=== PATIENT | male | born 1935 | race Caucasian/White ===

== ENCOUNTER 2017-07-05 16:42 | Inpatient (IN) | payer MEDICARE, BC ==
[2017-07-05] MEDS ORDERED: Acetaminophen 325 MG Tab PO ONE (17:42)
--- NOTE | 2017-07-05 17:44 | EDM.PDOC ---
ED HPI GENERAL MEDICAL PROBLEM - General Chief Complaint: General Stated Complaint: MED[facility] Time Seen by Provider: 07/05/17 17:20 Source of Information: Reports: Patient, Family History Limitations: Reports: No Limitations - History of Present Illness INITIAL COMMENTS - FREE TEXT/NARRATIVE: PT ARRIVED WITH A HIGH FEVER AND MORE SOB. hE SPIKED A TEMP TONITE. hE HAS A HISTORY OF FREQUENT FEVERS. -- WITH CHEST INFECTIONS. Onset: Today, Sudden Duration: Hour(s): Location: Reports: Chest Associated Symptoms: Reports: Cough, Fever/Chills, Shortness of Breath - Related Data Allergies Allergy/AdvReac Type Severity Reaction Status Date / Time triamcinolone Allergy Itching Verified 11/04/16 20:06 triamcinolone acetonide Allergy Rash Verified 11/04/16 20:06 [From [facility]] Home Meds: Home Meds Multivitamins/Minerals [Vitamins and Minerals] 1 tab PO DAILY tablet 04/02/15 [ Rx] Furosemide [Lasix] 40 mg PO DAILY 05/30/15 [History] Potassium Chloride [Klor-Con M20] 20 meq PO BID 05/30/15 [History] Cholecalciferol (Vitamin D3) [Vitamin D3] 1,000 units PO DAILY 07/17/15 [History ] Acetaminophen [Tylenol] 650 mg PO BID PRN 07/25/15 [History] Ascorbic Acid [Vitamin C] 500 mg PO DAILY 07/25/15 [History] Aspirin [Ecotrin] 81 mg PO DAILY 07/25/15 [History] [place]-3 Fatty Acids [Fish Oil] 1,000 mg PO DAILY 07/25/15 [History] Vitamin E 400 units PO DAILY 07/25/15 [History] Calcium Polycarbophil [Fibercon] 1 tab PO DAILY 09/15/15 [History] Ranitidine [Zantac] 150 mg PO BID 09/15/15 [History] Warfarin [Coumadin] 15 mg PO ASDIRECTED 10/26/15 [History] Metoprolol Succinate [Toprol XL] 50 mg PO DAILY 03/25/16 [History] carBAMazepine [Epitol] 400 mg PO BEDTIME 04/26/16 [History] Tamsulosin [Flomax] 0.4 mg PO DAILY 07/31/16 [History] carBAMazepine [Epitol] 200 mg PO BID 07/31/16 [History] Citalopram [Citalopram HBr] 20 mg PO DAILY 10/27/16 [History] Fluticasone/Salmeterol [Advair 250-50 Diskus] 2 puff INH DAILY 10/29/16 [History ] Donepezil [Aricept] 5 mg PO BEDTIME 11/04/16 [History] amLODIPine Besylate [Norvasc] 5 mg PO DAILY 11/15/16 [History] Past Medical History HEENT History: Reports: Hard of Hearing, Impaired Vision, Other (See Below) Other HEENT History: bleeding under arm Cardiovascular History: Reports: CAD, High Cholesterol, Hypertension, [place] Other Cardiovascular History: nov blood clot in l leg. Blood clot l arm. mar Still there. 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 Musculoskeletal Surgical History: Reports: Knee Replacement, Other (See Below) Other Musculoskeletal Surgeries/Procedures:: Back surgery, something with discs Social & Family History - Family History Family Medical History: Unobtainable Cardiac: Reports: CAD - Tobacco Use Smoking Status *Q: Former Smoker Years of Tobacco use: 50 Packs/Tins Daily: 1.1 Used Tobacco, but Quit: Yes Month Tobacco Last Used: 3 years Second Hand Smoke Exposure: No - Caffeine Use Caffeine Use: Reports: Coffee - Alcohol Use Days Per Week of Alcohol Use: 1 Number of Drinks Per Day: 1 Total Drinks Per Week: 1 - Recreational Drug Use Recreational Drug Use: No - Living Situation & Occupation Living situation: Reports: Occupation: Retired ED ROS GENERAL - Review of Systems Review Of Systems: See Below Constitutional: Reports: Fever, Chills, Malaise, Decreased Appetite HEENT: Reports: No Symptoms Respiratory: Reports: Shortness of Breath, Cough, Other ( fever. ) Cardiovascular: Reports: No Symptoms Endocrine: Reports: No Symptoms GI/Abdominal: Reports: No Symptoms : Reports: No Symptoms Musculoskeletal: Reports: No Symptoms Skin: Reports: No Symptoms ED EXAM, GENERAL - Physical Exam Exam: See Below Free Text/Narrative:: pt has been slightly more sob the past 2 days. he spiked a temp today and became quite sob. He has a history of recurrent pneumonias. Exam Limited By: No Limitations General Appearance: Alert, Anxious, Mild Distress Ears: Normal TMs Nose: Normal Inspection Throat/Mouth: Normal Inspection Head: Atraumatic Neck: Normal Inspection Respiratory/Chest: Decreased Breath Sounds, Rhonchi, Wheezing Cardiovascular: Regular Rate, Rhythm, Tachycardia GI/Abdominal: Soft, Non-Tender (Male) Exam: Deferred Rectal (Males) Exam: Deferred Back Exam: Normal Inspection Extremities: Normal Inspection Neurological: Alert, Oriented, Normal Cognition Psychiatric: Normal Affect Course - Vital Signs Last Recorded V/S: Last Vital Signs Temp 38.6 C H 07/05/17 17:27 Pulse 87 07/05/17 17:27 Resp 22 H 07/05/17 17:27 BP 157/82 H 07/05/17 17:27 Pulse Ox 98 07/05/17 17:27 - Orders/Labs/Meds Orders: Active Orders 24 hr Category Date Time Status EKG Documentation Completion [RC] ASDIRECTED Care 07/05/17 17:39 Active Chest 1V Frontal [CR] Stat Exams 07/05/17 17:41 Taken CULTURE BLOOD [BC] Urgent Lab 07/05/17 17:45 Received CULTURE BLOOD [BC] Urgent Lab 07/05/17 17:55 Received UA W/MICROSCOPIC [URIN] Urgent Lab 07/05/17 17:39 Uncollected Blood Culture x2 Reflex Set [OM.PC] Urgent Oth 07/05/17 17:40 Ordered EKG 12 Lead [EK] Routine Ther 07/05/17 17:39 Ordered Labs: Laboratory Tests 07/05/17 07/05/17 Range/Units 17:39 17:39 WBC 10.6 (4.5-11.0) K/uL RBC 4.16 L (4.30-5.90) M/uL Hgb 13.2 D (12.0-15.0) g/dL Hct 37.7 L (40.0-54.0) % MCV 91 (80-98) fL MCH 32 H (27-31) pg MCHC 35 (32-36) % Plt Count 177 (150-400) K/uL Neut % (Auto) 91 H (36-66) % Lymph % (Auto) 2 L (24-44) % [place] % (Auto) 4 (2-6) % Eos % (Auto) 2 (2-4) % Baso % (Auto) 0 (0-1) % Sodium 129 L (140-148) mmol/L Potassium 4.6 (3.6-5.2) mmol/L Chloride 94 L (100-108) mmol/L Carbon Dioxide 29 (21-32) mmol/L Anion Gap 10.6 (5.0-14.0) mmol/L BUN 17 (7-18) mg/dL Creatinine 1.0 (0.8-1.3) mg/dL Est Cr Clr Drug Dosing 62.60 mL/min Estimated GFR (MDRD) > 60 (>60) Glucose 129 H (74-106) mg/dL Calcium 8.6 (8.5-10.1) mg/dL Total Bilirubin 0.6 (0.2-1.0) mg/dL AST 17 (15-37) U/L ALT 22 (12-78) U/L Alkaline Phosphatase 75 (46-116) U/L Total Protein 8.0 (6.4-8.2) g/dL Albumin 3.8 (3.4-5.0) g/dL Globulin 4.2 H (2.3-3.5) g/dL Albumin/Globulin Ratio 0.9 L (1.2-2.2) Meds: Medications Discontinued Medications Generic Name Dose Route Start Last Admin Trade Name Freq PRN Reason Stop Dose Admin Acetaminophen 1,000 mg 07/05/17 17:42 07/05/17 18:30 Tylenol PO 07/05/17 17:43 1,000 mg NOW ONE Administration - Re-Assessments/Exams Free Text/Narrative Re-Assessment/Exam: 07/05/17 18:52 pt was found to have a rt sided pneumonia. He had a temp og 38.6. Departure - Departure Time of Disposition: 18:53 Disposition: Admitted As Inpatient 65 Condition: Fair Clinical Impression: Pneumonia involving right lung - Discharge Information Referrals: Ancelmo Davidson MD [Primary Care Provider] - Forms: ED Department Discharge Care Plan Goals: admit to Dr byrd. - My Orders Last 24 Hours: My Active Orders 07/05/17 17:39 EKG Documentation Completion [RC] ASDIRECTED UA W/MICROSCOPIC [URIN] Urgent EKG 12 Lead [EK] Routine 07/05/17 17:40 Blood Culture x2 Reflex Set [OM.PC] Urgent 07/05/17 17:41 Chest 1V Frontal [CR] Stat 07/05/17 17:45 CULTURE BLOOD [BC] Urgent 07/05/17 17:55 CULTURE BLOOD [BC] Urgent - Assessment/Plan Last 24 Hours: My Active Orders 07/05/17 17:39 EKG Documentation Completion [RC] ASDIRECTED UA W/MICROSCOPIC [URIN] Urgent EKG 12 Lead [EK] Routine 07/05/17 17:40 Blood Culture x2 Reflex Set [OM.PC] Urgent 07/05/17 17:41 Chest 1V Frontal [CR] Stat 07/05/17 17:45 CULTURE BLOOD [BC] Urgent 07/05/17 17:55 CULTURE BLOOD [BC] Urgent
[2017-07-05] MEDS ORDERED: Albuterol 0.083% 2.5 MG/3 ML Neb Soln NEB ONE (18:54)
--- NOTE | 2017-07-05 19:45 | PCM.HP ---
H&P History of Present Illness - General Date of Service: 07/05/17 Admit Problem/Dx: Admission Diagnosis/Problem Admission Diagnosis/Problem Pneumonia Source of Information: Patient, Family, Provider, RN Notes Reviewed History Limitations: Reports: Altered Mental Status (Dementia) - History of Present Illness Initial Comments - Free Text/Narative: Mr. Mora is an 81-year-old gentleman who is admitted through the emergency department with cough, fever, and shortness of breath secondary to a right lung pneumonia. He has a known history of COPD and has developed intermittent episodes of pneumonia. His reports that he is not felt well over the past 4 -5 days, during that time has had a cough with increased shortness of breath and weakness. Today developed increased short of breath and fever. Vital signs have been stable and his white blood cell count is within normal range, lactic acid level is mildly elevated, he has received IV fluids in the emergency department. He has a history of dementia and is unable to provide significant history concerning recent symptoms or events. - Related Data Allergies/Adverse Reactions: Allergies Allergy/AdvReac Type Severity Reaction Status Date / Time triamcinolone Allergy Itching Verified 11/04/16 20:06 triamcinolone acetonide Allergy Rash Verified 11/04/16 20:06 [From [facility]] Home Medications: Home Meds Multivitamins/Minerals [Vitamins and Minerals] 1 tab PO DAILY tablet 04/02/15 [ Rx] Furosemide [Lasix] 40 mg PO DAILY 05/30/15 [History] Potassium Chloride [Klor-Con M20] 20 meq PO BID 05/30/15 [History] Cholecalciferol (Vitamin D3) [Vitamin D3] 1,000 units PO DAILY 07/17/15 [History ] Acetaminophen [Tylenol] 650 mg PO BID PRN 07/25/15 [History] Ascorbic Acid [Vitamin C] 500 mg PO DAILY 07/25/15 [History] Aspirin [Ecotrin] 81 mg PO DAILY 07/25/15 [History] [place]-3 Fatty Acids [Fish Oil] 1,000 mg PO DAILY 07/25/15 [History] Vitamin E 400 units PO DAILY 07/25/15 [History] Calcium Polycarbophil [Fibercon] 1 tab PO DAILY 09/15/15 [History] Ranitidine [Zantac] 150 mg PO BID 09/15/15 [History] Warfarin [Coumadin] 15 mg PO ASDIRECTED 10/26/15 [History] Metoprolol Succinate [Toprol XL] 50 mg PO DAILY 03/25/16 [History] carBAMazepine [Epitol] 400 mg PO BEDTIME 04/26/16 [History] Tamsulosin [Flomax] 0.4 mg PO DAILY 07/31/16 [History] carBAMazepine [Epitol] 200 mg PO BID 07/31/16 [History] Citalopram [Citalopram HBr] 20 mg PO DAILY 10/27/16 [History] Fluticasone/Salmeterol [Advair 250-50 Diskus] 2 puff INH DAILY 10/29/16 [History ] Donepezil [Aricept] 5 mg PO BEDTIME 11/04/16 [History] amLODIPine Besylate [Norvasc] 5 mg PO DAILY 11/15/16 [History] Past Medical History HEENT History: Reports: Hard of Hearing, Impaired Vision, Other (See Below) Other HEENT History: bleeding under arm Cardiovascular History: Reports: CAD, High Cholesterol, Hypertension, [place] Other Cardiovascular History: aug blood clot in l leg. Blood clot l arm. mar Still there. 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 Musculoskeletal Surgical History: Reports: Knee Replacement, Other (See Below) Other Musculoskeletal Surgeries/Procedures:: Back surgery, something with discs Social & Family History - Family History Family Medical History: Unobtainable Cardiac: Reports: CAD - Tobacco Use Smoking Status *Q: Former Smoker Years of Tobacco use: 50 Packs/Tins Daily: 1.1 Used Tobacco, but Quit: Yes Month Tobacco Last Used: 3 years Second Hand Smoke Exposure: No - Caffeine Use Caffeine Use: Reports: Coffee - Alcohol Use Days Per Week of Alcohol Use: 1 Number of Drinks Per Day: 1 Total Drinks Per Week: 1 - Recreational Drug Use Recreational Drug Use: No - Living Situation & Occupation Living situation: Reports: Occupation: Retired H&P Review of Systems - Review of Systems: Review Of Systems: Unable To Obtain General: Reports: ROS unobtainable (Dementia) Exam - Exam Exam: See Below - Vital Signs Vital Signs: Last Vital Signs Temp 101.8 F H 07/05/17 18:00 Pulse 88 07/05/17 19:33 Resp 20 07/05/17 19:33 BP 87/39 L 07/05/17 19:33 Pulse Ox 92 L 07/05/17 19:33 Weight: 205 lb 14.588 oz - Exam Quality Assessment: Supplemental Oxygen, DVT Prophylaxis General: Alert, Cooperative, Mild Distress HEENT: Conjunctiva Clear, Mucosa Moist & [place], Normal Nasal Septum, Posterior Pharynx Clear, Pupils Equal. No: Hearing Intact Neck: Supple, Trachea Midline, +2 Carotid Pulse wo Bruit Lungs: Decreased Breath Sounds, Rhonchi. No: Crackles, Rales, Rub, Stridor Cardiovascular: Regular Rate, Regular Rhythm, Normal S1, Normal S2. No: Systolic Murmur, Diastolic Murmur GI/Abdominal Exam: Normal Bowel Sounds, Soft, Non-Tender, No Organomegaly, No Distention Back Exam: Normal Inspection, Full Range of Motion, Paraspinal Tenderness Extremities: Normal Inspection, Non-Tender, No Pedal Edema Skin: Warm, Dry, Intact Neurological: Cranial Nerves Intact, Normal Speech, Normal Tone, Sensation Intact. No: Focal Deficit Neuro Extensive - Mental Status: Alert, Oriented x3, Normal Mood/Affect, Memory Loss-Remote Events, Memory Loss-Recent Events - Patient Data Lab Results Last 24 hrs: Laboratory Results - last 24 hr 07/05/17 07/05/17 07/05/17 Range/Units 17:39 17:39 19:03 WBC 10.6 (4.5-11.0) K/uL RBC 4.16 L (4.30-5.90) M/uL Hgb 13.2 D (12.0-15.0) g/dL Hct 37.7 L (40.0-54.0) % MCV 91 (80-98) fL MCH 32 H (27-31) pg MCHC 35 (32-36) % Plt Count 177 (150-400) K/uL Neut % (Auto) 91 H (36-66) % Lymph % (Auto) 2 L (24-44) % [place] % (Auto) 4 (2-6) % Eos % (Auto) 2 (2-4) % Baso % (Auto) 0 (0-1) % PT 29.1 H (9.5-12.0) sec INR 2.61 H (0.80-1.20) Sodium 129 L (140-148) mmol/L Potassium 4.6 (3.6-5.2) mmol/L Chloride 94 L (100-108) mmol/L Carbon Dioxide 29 (21-32) mmol/L Anion Gap 10.6 (5.0-14.0) mmol/L BUN 17 (7-18) mg/dL Creatinine 1.0 (0.8-1.3) mg/dL Est Cr Clr Drug Dosing 62.60 mL/min Estimated GFR (MDRD) > 60 (>60) Glucose 129 H (74-106) mg/dL Lactic Acid (0.4-2.0) mmol/L Calcium 8.6 (8.5-10.1) mg/dL Total Bilirubin 0.6 (0.2-1.0) mg/dL AST 17 (15-37) U/L ALT 22 (12-78) U/L Alkaline Phosphatase 75 (46-116) U/L Total Protein 8.0 (6.4-8.2) g/dL Albumin 3.8 (3.4-5.0) g/dL Globulin 4.2 H (2.3-3.5) g/dL Albumin/Globulin Ratio 0.9 L (1.2-2.2) 07/05/17 Range/Units 19:03 WBC (4.5-11.0) K/uL RBC (4.30-5.90) M/uL Hgb (12.0-15.0) g/dL Hct (40.0-54.0) % MCV (80-98) fL MCH (27-31) pg MCHC (32-36) % Plt Count (150-400) K/uL Neut % (Auto) (36-66) % Lymph % (Auto) (24-44) % [place] % (Auto) (2-6) % Eos % (Auto) (2-4) % Baso % (Auto) (0-1) % PT (9.5-12.0) sec INR (0.80-1.20) Sodium (140-148) mmol/L Potassium (3.6-5.2) mmol/L Chloride (100-108) mmol/L Carbon Dioxide (21-32) mmol/L Anion Gap (5.0-14.0) mmol/L BUN (7-18) mg/dL Creatinine (0.8-1.3) mg/dL Est Cr Clr Drug Dosing mL/min Estimated GFR (MDRD) (>60) Glucose (74-106) mg/dL Lactic Acid 2.2 H (0.4-2.0) mmol/L Calcium (8.5-10.1) mg/dL Total Bilirubin (0.2-1.0) mg/dL AST (15-37) U/L ALT (12-78) U/L Alkaline Phosphatase (46-116) U/L Total Protein (6.4-8.2) g/dL Albumin (3.4-5.0) g/dL Globulin (2.3-3.5) g/dL Albumin/Globulin Ratio (1.2-2.2) Result Diagrams: 07/05/17 17:39 07/05/17 17:39 *Q Meaningful Use (ADM) - VTE *Q VTE Criteria *Q: VTE Pharmacological Contraindications *Q: High INR Value - VTE Risk Assess *Q Each Risk Factor Represents 1 Point: Serious Lung Disease Including Pneumonia, Less than 1 Month, Abnormal Pulmonary Function (COPD) Total Score 1 Point Risk Factors: 2 Each Risk Factor Represents 2 Points: None Total Score 2 Point Risk Factors: 0 Each Risk Factor Represents 3 Points: Age 75 Years or Greater, History Superficial Venous Thrombosis, DVT or PE Total Score 3 Point Risk Factors: 6 Each Risk Factor Represents 5 Points: None Total Score 5 Point Risk Factors: 0 Venous Thromboembolism Risk Factor Score *Q: 8 - Stroke *Q Stroke Criteria *Q: - AMI *Q AMI Criteria *Q: Problem List Initiated/Reviewed/Updated: Yes Orders Last 24hrs: Active Orders 24 hr Category Date Time Status Patient Status Manage Transfer [TRANSFER] Routine ADT 07/05/17 19:00 Active EKG Documentation Completion [RC] ASDIRECTED Care 07/05/17 17:39 Active RT Aerosol Therapy [RC] ASDIRECTED Care 07/05/17 18:55 Active Chest 1V Frontal [CR] Stat Exams 07/05/17 17:41 Taken CULTURE BLOOD [BC] Urgent Lab 07/05/17 17:45 Received CULTURE BLOOD [BC] Urgent Lab 07/05/17 17:55 Received UA W/MICROSCOPIC [URIN] Urgent Lab 07/05/17 17:39 Uncollected Blood Culture x2 Reflex Set [OM.PC] Urgent Oth 07/05/17 17:40 Ordered Resuscitation Status Routine Resus Stat 07/05/17 19:03 Ordered EKG 12 Lead [EK] Routine Ther 07/05/17 17:39 Ordered Assessment/Plan Comment:: ASSESSMENT AND PLAN RIGHT LUNG PNEUMONIA WITH EARLY SEPSIS-he has known underlying COPD although at the present time does not have significant COPD exacerbation. Saturations are good and vital signs within the desired range. Temperature elevated but white blood cell count is within normal range. Mild elevation in lactic acid level. -Blood and sputum cultures pending -IV fluids for hydration and management of early sepsis -Repeat lactic acid level in a.m. 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 -Daily INR while hospitalized -We'll need to consider downward adjustment of dose of warfarin given current antibiotic therapy SEIZURE DISORDER -Continue outpatient medical regimen MAINTENANCE ISSUES -DVT prophylaxis; current therapy with warfarin should provide adequate DVT prophylaxis -GI prophylaxis; continue outpatient H2 pa therapy -Osorio catheter; not required -Nutrition; regular diet -Nicotine dependence; not required CODE STATUS-DNR/DNI ADMISSION STATUS-patient will be admitted to inpatient status, expect at least a 2 night hospital stay for evaluation and management of problems as outlined above. At the time of this admission I do not reasonably expected evaluation and management of this problem will require more than a 96 hour hospital stay. DISPOSITION-anticipate discharge to home after the hospital stay. PRIMARY CARE PROVIDER-Dr. Davidson
[2017-07-05] MEDS ORDERED: Albuterol 0.083% 2.5 MG/3 ML Neb Soln NEB PRN (21:19)
[2017-07-05] MEDS ORDERED: Magnesium Hydroxide 400 MG/5 ML Susp 30 ML Cup PO PRN (21:19)
[2017-07-05] MEDS ORDERED: Docusate Sodium 100 MG Cap PO PRN (21:19)
[2017-07-05] MEDS ORDERED: oxyCODONE 5 MG Tab PO PRN (21:19)
[2017-07-05] MEDS ORDERED: Ondansetron 4 MG/2 ML SDV IV PRN (21:19)
[2017-07-05] MEDS ORDERED: carBAMazepine 200 MG Tab PO SCH (21:19)
[2017-07-05] MEDS ORDERED: Sodium Chloride 0.9% 10 ML Syringe FLUSH PRN (21:19)
[2017-07-05] MEDS ORDERED: Polyethylene Glycol 3350 Powder 17 GM Packet PO PRN (21:19)
[2017-07-05] MEDS ORDERED: Acetaminophen 325 MG Tab PO PRN (21:19)
[2017-07-05] MEDS: Melatonin 3 MG Tab PO SCH (21:59)
[2017-07-05] MEDS: Potassium Chloride 20 MEQ Tab.ER PO SCH (21:59)
[2017-07-05] MEDS: Donepezil 10 MG Tab PO SCH (22:00)
[2017-07-05] MEDS: carBAMazepine 200 MG Tab PO SCH (22:00)
[2017-07-05] MEDS: cefTRIAXone 1 GM in Sodium Chloride 0.9% 50 ML IV SCH (22:01)
[2017-07-05] MEDS: Albuterol/Ipratropium 3.0-0.5 MG/3 ML Neb Soln NEB SCH (22:01)
[2017-07-05] MEDS: Sodium Chloride 0.9% 1,000 ML IV SCH (22:02)
[2017-07-05] MEDS ORDERED: Lactated Ringers 1,000 ML IV SCH (23:15)
[2017-07-05] MEDS: Levofloxacin/Dextrose 5%-Water 750 MG in Premix Bag 1 BAG IV SCH (23:16)
[2017-07-06] MEDS: Albuterol/Ipratropium 3.0-0.5 MG/3 ML Neb Soln NEB SCH ×4 (07:28→21:54)
[2017-07-06] MEDS: Sodium Chloride 0.9% 1,000 ML IV SCH ×2 (07:58→16:43)
[2017-07-06] MEDS: Citalopram 20 MG Tab PO SCH (08:18)
[2017-07-06] MEDS: carBAMazepine 200 MG Tab PO SCH ×3 (08:18→21:05)
[2017-07-06] MEDS: Tamsulosin 0.4 MG Cap.ER PO SCH (08:19)
[2017-07-06] MEDS: Furosemide 40 MG Tab PO SCH (08:19)
[2017-07-06] MEDS: Aspirin 81 MG Tab.EC PO SCH (08:19)
[2017-07-06] MEDS: Potassium Chloride 20 MEQ Tab.ER PO SCH ×2 (08:19→21:04)
[2017-07-06] MEDS: Calcium Polycarbophil 625 MG Tab PO SCH (08:19)
[2017-07-06] MEDS: Metoprolol Succinate 50 MG Tab.ER PO SCH (08:28)
[2017-07-06] MEDS: Formoterol/Mometasone 200-5 MCG 8.8 GM Inhaler IH SCH ×2 (08:44→21:03)
[2017-07-06] MEDS ORDERED: amLODIPine 5 MG Tab PO SCH (09:00)
[2017-07-06] MEDS: Magnesium Oxide 400 MG Tab PO SCH ×2 (09:31→21:04)
[2017-07-06] MEDS ORDERED: Magnesium Sulfate/Water 2 GM in Premix Bag 1 BAG IV ONE (10:00)
--- NOTE | 2017-07-06 10:22 | CR ---
Chest 1V Frontal INDICATION: CHEST CONGESTION. FINDINGS: Comparison 11/15/2016. Sternotomy. Heart size is prominent. Pulmonary vascular at the upper limits of normal. New focal opac ity in the right upper lobe concerning for pneumonia. Chest otherwise negative. Follow-up chest x-ray in 4-6 weeks recommended.
[2017-07-06] MEDS: amLODIPine 5 MG Tab PO SCH (14:53)
[2017-07-06] MEDS ORDERED: Warfarin 5 MG Tab PO ONE (17:49)
--- NOTE | 2017-07-06 17:55 | PCM.PN ---
- General Info Date of Service: 07/06/17 Functional Status: Reports: Pain Controlled, Tolerating Diet, Urinating - Review of Systems General: Reports: Fever, Weakness, Chills Pulmonary: Reports: Shortness of Breath, Cough, Sputum. Denies: Pleuritic Chest Pain, Hemoptysis, Wheezing Cardiovascular: Reports: Dyspnea on Exertion. Denies: Chest Pain, Palpitations , Orthopnea, PND, Edema Gastrointestinal: Reports: No Symptoms Genitourinary: Reports: No Symptoms Systems Review Comment:: This patient had difficulty with hypotension during the night likely secondary to sepsis, lower blood pressures resolved after he received a fluid bolus and he has been stable since that time. Initially did have temperature elevation but is been afebrile since then, cough is productive of colored sputum. White blood cell count remains elevated. He is feeling improved with less weakness and better appetite. - Patient Data Vitals - Most Recent: Last Vital Signs Temp 98.2 F 07/06/17 11:50 Pulse 68 07/06/17 14:37 Resp 16 07/06/17 11:50 BP 132/63 07/06/17 15:00 Pulse Ox 94 L 07/06/17 11:50 Weight - Most Recent: 235 lb 8 oz I&O - Last 24 Hours: Intake & Output 07/06/17 07/06/17 07/06/17 06:59 14:59 22:59 Intake Total 2030 210 Output Total 150 Balance 1880 210 Lab Results Last 24 Hours: Laboratory Results - last 24 hr 07/05/17 07/05/17 07/06/17 Range/Units 19:03 19:03 03:30 WBC (4.5-11.0) K/uL RBC (4.30-5.90) M/uL Hgb (12.0-15.0) g/dL Hct (40.0-54.0) % MCV (80-98) fL MCH (27-31) pg MCHC (32-36) % Plt Count (150-400) K/uL Neut % (Auto) (36-66) % Lymph % (Auto) (24-44) % King % (Auto) (2-6) % Eos % (Auto) (2-4) % Baso % (Auto) (0-1) % PT 29.1 H (9.5-12.0) sec INR 2.61 H (0.80-1.20) Sodium (140-148) mmol/L Potassium (3.6-5.2) mmol/L Chloride (100-108) mmol/L Carbon Dioxide (21-32) mmol/L Anion Gap (5.0-14.0) mmol/L BUN (7-18) mg/dL Creatinine (0.8-1.3) mg/dL Est Cr Clr Drug Dosing mL/min Estimated GFR (MDRD) (>60) Glucose (74-106) mg/dL Lactic Acid 2.2 H (0.4-2.0) mmol/L Calcium (8.5-10.1) mg/dL Magnesium (1.8-2.4) mg/dL Urine Color Yellow Urine Appearance Clear Urine pH 5.0 (4.5-8.0) Ur Specific [place] 1.020 (1.008-1.030) Urine Protein Negative (NEGATIVE) mg/dL Urine Glucose (UA) Normal (NEGATIVE) mg/dL Urine Ketones Negative (NEGATIVE) mg/dL Urine Occult Blood Negative (NEGATIVE) Urine Nitrite Negative (NEGAITVE) Urine Bilirubin Small (NEGATIVE) Urine Urobilinogen Normal (NORMAL) mg/dL Ur Leukocyte Esterase Negative (NEGATIVE) Urine RBC 0-5 (0-5) Urine WBC 0-5 (0-5) Ur Epithelial Cells Few Amorphous Sediment Few Urine Bacteria Moderate Urine Mucus Not seen 07/06/17 07/06/17 07/06/17 Range/Units 05:30 05:30 05:30 WBC 14.6 H (4.5-11.0) K/uL RBC 3.39 L (4.30-5.90) M/uL Hgb 10.6 L D (12.0-15.0) g/dL Hct 31.3 L (40.0-54.0) % MCV 92 (80-98) fL MCH 31 (27-31) pg MCHC 34 (32-36) % Plt Count 153 (150-400) K/uL Neut % (Auto) 88 H (36-66) % Lymph % (Auto) 4 L (24-44) % King % (Auto) 8 H (2-6) % Eos % (Auto) 0 L (2-4) % Baso % (Auto) 0 (0-1) % PT 35.7 H (9.5-12.0) sec INR 3.18 H (0.80-1.20) Sodium 130 L (140-148) mmol/L Potassium 5.1 (3.6-5.2) mmol/L Chloride 97 L (100-108) mmol/L Carbon Dioxide 27 (21-32) mmol/L Anion Gap 11.1 (5.0-14.0) mmol/L BUN 23 H (7-18) mg/dL Creatinine 1.5 H (0.8-1.3) mg/dL Est Cr Clr Drug Dosing 42.91 mL/min Estimated GFR (MDRD) 45 L (>60) Glucose 120 H (74-106) mg/dL Lactic Acid (0.4-2.0) mmol/L Calcium 8.2 L (8.5-10.1) mg/dL Magnesium 1.7 L (1.8-2.4) mg/dL Urine Color Urine Appearance Urine pH (4.5-8.0) Ur Specific [place] (1.008-1.030) Urine Protein (NEGATIVE) mg/dL Urine Glucose (UA) (NEGATIVE) mg/dL Urine Ketones (NEGATIVE) mg/dL Urine Occult Blood (NEGATIVE) Urine Nitrite (NEGAITVE) Urine Bilirubin (NEGATIVE) Urine Urobilinogen (NORMAL) mg/dL Ur Leukocyte Esterase (NEGATIVE) Urine RBC (0-5) Urine WBC (0-5) Ur Epithelial Cells Amorphous Sediment Urine Bacteria Urine Mucus 07/06/17 Range/Units 05:55 WBC (4.5-11.0) K/uL RBC (4.30-5.90) M/uL Hgb (12.0-15.0) g/dL Hct (40.0-54.0) % MCV (80-98) fL MCH (27-31) pg MCHC (32-36) % Plt Count (150-400) K/uL Neut % (Auto) (36-66) % Lymph % (Auto) (24-44) % King % (Auto) (2-6) % Eos % (Auto) (2-4) % Baso % (Auto) (0-1) % PT (9.5-12.0) sec INR (0.80-1.20) Sodium (140-148) mmol/L Potassium (3.6-5.2) mmol/L Chloride (100-108) mmol/L Carbon Dioxide (21-32) mmol/L Anion Gap (5.0-14.0) mmol/L BUN (7-18) mg/dL Creatinine (0.8-1.3) mg/dL Est Cr Clr Drug Dosing mL/min Estimated GFR (MDRD) (>60) Glucose (74-106) mg/dL Lactic Acid 2.1 H (0.4-2.0) mmol/L Calcium (8.5-10.1) mg/dL Magnesium (1.8-2.4) mg/dL Urine Color Urine Appearance Urine pH (4.5-8.0) Ur Specific [place] (1.008-1.030) Urine Protein (NEGATIVE) mg/dL Urine Glucose (UA) (NEGATIVE) mg/dL Urine Ketones (NEGATIVE) mg/dL Urine Occult Blood (NEGATIVE) Urine Nitrite (NEGAITVE) Urine Bilirubin (NEGATIVE) Urine Urobilinogen (NORMAL) mg/dL Ur Leukocyte Esterase (NEGATIVE) Urine RBC (0-5) Urine WBC (0-5) Ur Epithelial Cells Amorphous Sediment Urine Bacteria Urine Mucus Beni Results Last 24 Hours: Microbiology 07/06/17 03:15 Gram Stain - Final Sputum - Expectorated Med Orders - Current: Current Medications Acetaminophen (Tylenol) 650 mg PO Q4H PRN PRN Reason: Pain (Mild 1-3)/fever Albuterol (Proventil Neb Soln) 2.5 mg NEB Q4H PRN PRN Reason: Shortness Of Breath/wheezing Albuterol/Ipratropium (Duoneb 3.0-0.5 Mg/3 Ml) 3 ml NEB QIDRT [facility] Last Admin: 07/06/17 14:35 Dose: 3 ml Amlodipine Besylate (Norvasc) 5 mg PO DAILY@1500 [facility] Last Admin: 07/06/17 14:53 Dose: 5 mg Aspirin (Halfprin) 81 mg PO DAILY [facility] Last Admin: 07/06/17 08:19 Dose: 81 mg Calcium Polycarbophil (Fibercon) 625 mg PO DAILY [facility] Last Admin: 07/06/17 08:19 Dose: 625 mg Carbamazepine (Tegretol Tab) 400 mg PO BEDTIME [facility] Last Admin: 07/05/17 22:00 Dose: 400 mg Carbamazepine (Tegretol Tab) 200 mg PO BID@0800,1500 [facility] Last Admin: 07/06/17 15:37 Dose: 200 mg Citalopram Hydrobromide (Celexa) 20 mg PO DAILY [facility] Last Admin: 07/06/17 08:18 Dose: 20 mg Docusate Sodium (Colace) 100 mg PO BID PRN PRN Reason: Constipation Last Admin: 07/05/17 21:59 Dose: 100 mg Donepezil HCl (Aricept) 5 mg PO BEDTIME [facility] Last Admin: 07/05/17 22:00 Dose: 5 mg Furosemide (Lasix) 40 mg PO DAILY [facility] Last Admin: 07/06/17 08:19 Dose: 40 mg Ceftriaxone Sodium 1 gm/ (Sodium Chloride) 50 mls @ 100 mls/hr IV Q24H [facility] Last Admin: 07/05/17 22:01 Dose: 100 mls/hr Levofloxacin/Dextrose 750 mg/ (Premix) 150 mls @ 100 mls/hr IV Q24H [facility] Last Admin: 07/05/17 23:16 Dose: 100 mls/hr Lactated Ringer's (Ringers, Lactated) 1,000 mls @ 500 mls/hr IV BOLUS [facility] Last Admin: 07/05/17 23:37 Dose: 500 mls/hr Magnesium Hydroxide (Milk Of Magnesia) 30 ml PO Q12H PRN PRN Reason: Constipation Magnesium Oxide (Magnesium Oxide) 400 mg PO BID [facility] Last Admin: 07/06/17 09:31 Dose: 400 mg Melatonin (Melatonin) 9 mg PO BEDTIME [facility] Last Admin: 07/05/17 21:59 Dose: 9 mg Metoprolol Succinate (Toprol Xl) 50 mg PO DAILY [facility] Last Admin: 07/06/17 08:28 Dose: 50 mg Mometasone Furoate/Formoterol Fumar (Dulera 200-5 Mcg) 0 puff IH BIDRT [facility] Last Admin: 07/06/17 08:44 Dose: 2 puff Ondansetron HCl (Zofran) 4 mg IV Q4H PRN PRN Reason: Nausea/Vomiting Oxycodone HCl (Oxycodone) 5 mg PO Q4H PRN PRN Reason: Pain (moderate 4-6) Polyethylene Glycol (Miralax) 17 gm PO DAILY PRN PRN Reason: Constipation Last Admin: 07/05/17 22:03 Dose: 17 gm Potassium Chloride (Klor-Con M20) 20 meq PO BID [facility] Last Admin: 07/06/17 08:19 Dose: 20 meq Ranitidine HCl (Zantac) 150 mg PO BID [facility] Last Admin: 07/06/17 08:19 Dose: 150 mg Sodium Chloride (Saline Flush) 10 ml FLUSH ASDIRECTED PRN PRN Reason: Keep Vein Open Tamsulosin HCl (Flomax) 0.4 mg PO DAILY [facility] Last Admin: 07/06/17 08:19 Dose: 0.4 mg Discontinued Medications Acetaminophen (Tylenol) 1,000 mg PO NOW ONE Stop: 07/05/17 17:43 Last Admin: 07/05/17 18:30 Dose: 1,000 mg Albuterol (Proventil Neb Soln) 2.5 mg NEB ONETIME ONE Stop: 07/05/17 18:55 Last Admin: 07/05/17 19:31 Dose: 2.5 mg Amlodipine Besylate (Norvasc) 5 mg PO DAILY [facility] Carbamazepine (Tegretol Tab) 200 mg PO BID [facility] Last Admin: 07/05/17 21:58 Dose: Not Given Sodium Chloride (Normal Saline) 1,000 mls @ 125 mls/hr IV ASDIRECTED [facility] Last Admin: 07/06/17 16:43 Dose: 125 mls/hr Magnesium Sulfate 2 gm/ Premix 50 mls @ 25 mls/hr IV ONETIME ONE Stop: 07/06/17 11:59 Last Admin: 07/06/17 10:05 Dose: 25 mls/hr - Exam Quality Assessment: DVT Prophylaxis General: Alert, Oriented, Cooperative, Mild Distress Lungs: Decreased Breath Sounds. No: Rales, Rhonchi, Wheezing Cardiovascular: Regular Rate, Regular Rhythm, No Murmurs GI/Abdominal Exam: Normal Bowel Sounds, Soft, Non-Tender, No Organomegaly, No Distention Extremities: Normal Range of Motion, No Pedal Edema Skin: Warm, Dry, Intact - Problem List Review Problem List Initiated/Reviewed/Updated: Yes - My Orders Last 24 Hours: My Active Orders 07/05/17 19:03 Resuscitation Status Routine 07/05/17 21:19 Patient Status [ADT] Routine Ambulate [RC] QID Intake and Output [RC] QSHIFT Notify Provider Vital Signs [RC] ASDIRECTED Oxygen Therapy [RC] PRN Peripheral IV Care [RC] Q12H RT Aerosol Therapy [RC] ASDIRECTED Up With Assistance [RC] ASDIRECTED Up to Chair [RC] QID VTE/DVT Education [RC] Per Unit Routine Vital Signs [RC] Q4H PT Evaluation and Treatment [CONS] Routine Acetaminophen [Tylenol] 650 mg PO Q4H PRN Albuterol [Proventil Neb Soln] 2.5 mg NEB Q4H PRN Docusate Sodium [Colace] 100 mg PO BID PRN Magnesium Hydroxide [Milk of Magnesia] 30 ml PO Q12H PRN Melatonin 9 mg PO BEDTIME Ondansetron [Zofran] 4 mg IV Q4H PRN Polyethylene Glycol 3350 [MiraLAX] 17 gm PO DAILY PRN Sodium Chloride 0.9% [Saline Flush] 10 ml FLUSH ASDIRECTED PRN oxyCODONE 5 mg PO Q4H PRN Peripheral IV Insertion Adult [OM.PC] Routine VTE Pharmacological Contraindications [AST] Per Unit Routine 07/05/17 22:00 Albuterol/Ipratropium [DuoNeb 3.0-0.5 MG/3 ML] 3 ml NEB QIDRT cefTRIAXone [Rocephin] 1 gm Sodium Chloride 0.9% [Normal Saline] 50 ml IV Q24H 07/05/17 23:00 Levofloxacin/Dextrose 5%-Water [Levaquin in D5W 750 MG/150 ML] 750 mg Premix Bag 1 bag IV Q24H 07/05/17 23:15 Lactated Ringers [Ringers, Lactated] 1,000 ml IV BOLUS 07/05/17 Dinner Regular Diet [DIET] 07/06/17 03:15 CULTURE RESPIRATORY + SMEAR [RM] Stat 07/06/17 08:00 carBAMazepine [TEGretol Tab] 200 mg PO BID@0800,1500 07/06/17 09:00 Magnesium Oxide 400 mg PO BID 07/06/17 15:00 amLODIPine [Norvasc] 5 mg PO DAILY@1500 07/06/17 17:48 Convert IV to Saline Lock [OM.PC] Routine 07/06/17 17:49 Warfarin [Coumadin] 10 mg PO ONETIME ONE 07/07/17 05:00 BASIC METABOLIC PANEL,BMP [CHEM] Timed CBC WITH AUTO DIFF [HEME] Timed MAGNESIUM [CHEM] Timed 07/07/17 05:11 INR,PT,PROTHROMBIN TIME [COAG] AM - Plan Plan:: ASSESSMENT AND PLAN RIGHT LUNG PNEUMONIA WITH EARLY SEPSIS-he did experience hypotension during the night but this responded to a fluid bolus and blood pressure is been stable since then with no further evidence of sepsis. Temperature after admission but has been afebrile since then. Feels less short of breath with more energy. 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 , INR mildly elevated today -Daily INR while hospitalized -We'll need to consider downward adjustment of dose of warfarin given current antibiotic therapy SEIZURE DISORDER -Continue outpatient medical regimen MAINTENANCE ISSUES -DVT prophylaxis; current therapy with warfarin should provide adequate DVT prophylaxis -GI prophylaxis; continue outpatient H2 pa therapy -Osorio catheter; not required -Nutrition; regular diet -Nicotine dependence; not required CODE STATUS-DNR/DNI ADMISSION STATUS-patient will be admitted to inpatient status, expect at least a 2 night hospital stay for evaluation and management of problems as outlined above. At the time of this admission I do not reasonably expected evaluation and management of this problem will require more than a 96 hour hospital stay. DISPOSITION-anticipate discharge to home after the hospital stay. PRIMARY CARE PROVIDER-Dr. Davidson
[2017-07-06] MEDS: Donepezil 10 MG Tab PO SCH (21:04)
[2017-07-06] MEDS: Melatonin 3 MG Tab PO SCH (21:04)
[2017-07-06] MEDS: cefTRIAXone 1 GM in Sodium Chloride 0.9% 50 ML IV SCH (21:54)
[2017-07-07] MEDS: Levofloxacin/Dextrose 5%-Water 750 MG in Premix Bag 1 BAG IV SCH ×2 (00:04→23:28)
[2017-07-07] MEDS: Albuterol/Ipratropium 3.0-0.5 MG/3 ML Neb Soln NEB SCH ×4 (07:20→20:18)
[2017-07-07] MEDS: Formoterol/Mometasone 200-5 MCG 8.8 GM Inhaler IH SCH ×2 (07:22→20:10)
[2017-07-07] MEDS: Citalopram 20 MG Tab PO SCH (08:12)
[2017-07-07] MEDS: carBAMazepine 200 MG Tab PO SCH ×3 (08:12→20:12)
[2017-07-07] MEDS: Metoprolol Succinate 50 MG Tab.ER PO SCH (08:13)
[2017-07-07] MEDS: Aspirin 81 MG Tab.EC PO SCH (08:13)
[2017-07-07] MEDS: Furosemide 40 MG Tab PO SCH (08:13)
[2017-07-07] MEDS: Tamsulosin 0.4 MG Cap.ER PO SCH (08:13)
[2017-07-07] MEDS: Potassium Chloride 20 MEQ Tab.ER PO SCH ×2 (08:13→20:11)
[2017-07-07] MEDS: Magnesium Oxide 400 MG Tab PO SCH ×2 (08:13→20:12)
[2017-07-07] MEDS: Calcium Polycarbophil 625 MG Tab PO SCH (08:16)
--- NOTE | 2017-07-07 11:17 | PCM.PN ---
- General Info Date of Service: 07/07/17 Functional Status: Reports: Tolerating Diet, Urinating - Review of Systems General: Denies: Fever, Weakness, Chills Pulmonary: Reports: Shortness of Breath, Cough. Denies: Pleuritic Chest Pain, Sputum, Hemoptysis, Wheezing Cardiovascular: Reports: Dyspnea on Exertion. Denies: Chest Pain, Palpitations , Orthopnea, PND, Edema Gastrointestinal: Reports: No Symptoms Systems Review Comment:: This patient has remained stable over the past 24 hours, vital signs have been good and he has remained afebrile. He reports less shortness of breath as well as improvement in his cough with less sputum production. - Patient Data Vitals - Most Recent: Last Vital Signs Temp 97.8 F 07/07/17 07:39 Pulse 66 07/07/17 11:04 Resp 18 07/07/17 07:39 BP 161/71 H 07/07/17 08:13 Pulse Ox 94 L 07/07/17 11:04 Weight - Most Recent: 235 lb 8 oz I&O - Last 24 Hours: Intake & Output 07/06/17 07/07/17 07/07/17 22:59 06:59 14:59 Intake Total 1093 1240 300 Balance 1093 1240 300 Lab Results Last 24 Hours: Laboratory Results - last 24 hr 07/07/17 07/07/17 07/07/17 Range/Units 04:30 04:30 04:30 WBC 7.3 (4.5-11.0) K/uL RBC 3.18 L (4.30-5.90) M/uL Hgb 10.0 L (12.0-15.0) g/dL Hct 29.5 L (40.0-54.0) % MCV 93 (80-98) fL MCH 31 (27-31) pg MCHC 34 (32-36) % Plt Count 130 L (150-400) K/uL Neut % (Auto) 82 H (36-66) % Lymph % (Auto) 7 L (24-44) % [place] % (Auto) 8 H (2-6) % Eos % (Auto) 2 (2-4) % Baso % (Auto) 0 (0-1) % PT 30.3 H (9.5-12.0) sec INR 2.72 H (0.80-1.20) Sodium 134 L (140-148) mmol/L Potassium 4.3 (3.6-5.2) mmol/L Chloride 102 (100-108) mmol/L Carbon Dioxide 27 (21-32) mmol/L Anion Gap 9.3 (5.0-14.0) mmol/L BUN 23 H (7-18) mg/dL Creatinine 1.1 (0.8-1.3) mg/dL Est Cr Clr Drug Dosing 58.23 mL/min Estimated GFR (MDRD) > 60 (>60) Glucose 112 H (74-106) mg/dL Calcium 8.1 L (8.5-10.1) mg/dL Magnesium 1.9 (1.8-2.4) mg/dL Beni Results Last 24 Hours: Microbiology 07/06/17 03:15 Gram Stain - Final Sputum - Expectorated Respiratory Culture - Preliminary NORMAL RESPIRATORY CORBIN 1 DAY Med Orders - Current: Current Medications Acetaminophen (Tylenol) 650 mg PO Q4H PRN PRN Reason: Pain (Mild 1-3)/fever Albuterol (Proventil Neb Soln) 2.5 mg NEB Q4H PRN PRN Reason: Shortness Of Breath/wheezing Albuterol/Ipratropium (Duoneb 3.0-0.5 Mg/3 Ml) [address] [facility] Last Admin: 07/07/17 11:01 Dose: 3 ml Amlodipine Besylate (Norvasc) 5 mg PO DAILY@1500 [facility] Last Admin: 07/06/17 14:53 Dose: 5 mg Aspirin (Halfprin) [address] [facility] Last Admin: 07/07/17 08:13 Dose: 81 mg Calcium Polycarbophil (Fibercon) [address] [facility] Last Admin: 07/07/17 08:16 Dose: 625 mg Carbamazepine (Tegretol Tab) [address] [facility] Last Admin: 07/06/17 21:05 Dose: 400 mg Carbamazepine (Tegretol Tab) 200 mg PO BID@0800,1500 [facility] Last Admin: 07/07/17 08:12 Dose: 200 mg Citalopram Hydrobromide (Celexa) [address] [facility] Last Admin: 07/07/17 08:12 Dose: 20 mg Docusate Sodium (Colace) 100 mg PO BID PRN PRN Reason: Constipation Last Admin: 07/05/17 21:59 Dose: 100 mg Donepezil HCl (Aricept) [address] [facility] Last Admin: 07/06/17 21:04 Dose: 5 mg Furosemide (Lasix) [address] [facility] Last Admin: 07/07/17 08:13 Dose: 40 mg Levofloxacin/Dextrose 750 mg/ (Premix) 150 mls @ 100 mls/hr IV Q24H [facility] Last Admin: 07/07/17 00:04 Dose: 100 mls/hr Lactated Ringer's (Ringers, Lactated) 1,000 mls @ 500 mls/hr IV BOLUS [facility] Last Admin: 07/05/17 23:37 Dose: 500 mls/hr Magnesium Hydroxide (Milk Of Magnesia) 30 ml PO Q12H PRN PRN Reason: Constipation Magnesium Oxide (Magnesium Oxide) [address] [facility] Last Admin: 07/07/17 08:13 Dose: 400 mg Melatonin (Melatonin) [address] [facility] Last Admin: 07/06/17 21:04 Dose: 9 mg Metoprolol Succinate (Toprol Xl) [address] [facility] Last Admin: 07/07/17 08:13 Dose: 50 mg Mometasone Furoate/Formoterol Fumar (Dulera 200-5 Mcg) [address] [facility] Last Admin: 07/07/17 07:22 Dose: 2 puff Ondansetron HCl (Zofran) 4 mg IV Q4H PRN PRN Reason: Nausea/Vomiting Oxycodone HCl (Oxycodone) 5 mg PO Q4H PRN PRN Reason: Pain (moderate 4-6) Polyethylene Glycol (Miralax) 17 gm PO DAILY PRN PRN Reason: Constipation Last Admin: 07/05/17 22:03 Dose: 17 gm Potassium Chloride (Klor-Con M20) [address] [facility] Last Admin: 07/07/17 08:13 Dose: 20 meq Ranitidine HCl (Zantac) [address] [facility] Last Admin: 07/07/17 08:14 Dose: 150 mg Sodium Chloride (Saline Flush) 10 ml FLUSH ASDIRECTED PRN PRN Reason: Keep Vein Open Tamsulosin HCl (Flomax) 0.[address] [facility] Last Admin: 07/07/17 08:13 Dose: 0.4 mg Warfarin Sodium (Coumadin) 10 mg PO ONETIME ONE Stop: 07/07/17 11:14 Discontinued Medications Acetaminophen (Tylenol) 1,000 mg PO NOW ONE Stop: 07/05/17 17:43 Last Admin: 07/05/17 18:30 Dose: 1,000 mg Albuterol (Proventil Neb Soln) 2.5 mg NEB ONETIME ONE Stop: 07/05/17 18:55 Last Admin: 07/05/17 19:31 Dose: 2.5 mg Amlodipine Besylate (Norvasc) [address] [facility] Carbamazepine (Tegretol Tab) [address] [facility] Last Admin: 07/05/17 21:58 Dose: Not Given Ceftriaxone Sodium 1 gm/ (Sodium Chloride) 50 mls @ 100 mls/hr IV Q24H [facility] Last Admin: 07/06/17 21:54 Dose: 100 mls/hr Sodium Chloride (Normal Saline) 1,000 mls @ 125 mls/hr IV ASDIRECTED [facility] Last Admin: 07/06/17 16:43 Dose: 125 mls/hr Magnesium Sulfate 2 gm/ Premix 50 mls @ 25 mls/hr IV ONETIME ONE Stop: 07/06/17 11:59 Last Admin: 07/06/17 10:05 Dose: 25 mls/hr Warfarin Sodium (Coumadin) 10 mg PO ONETIME ONE Stop: 07/06/17 17:50 Last Admin: 07/06/17 19:13 Dose: 10 mg - Exam General: Alert, Cooperative, No Acute Distress Lungs: Clear to Auscultation, Normal Respiratory Effort, Decreased Breath Sounds Cardiovascular: Regular Rate, Regular Rhythm, No Murmurs GI/Abdominal Exam: Normal Bowel Sounds, Soft, Non-Tender, No Organomegaly, No Distention Extremities: Non-Tender, No Pedal Edema Skin: Warm, Dry, Intact - Problem List Review Problem List Initiated/Reviewed/Updated: Yes - My Orders Last 24 Hours: My Active Orders 07/06/17 15:00 amLODIPine [Norvasc] 5 mg PO DAILY@1500 07/06/17 17:48 Convert IV to Saline Lock [OM.PC] Routine 07/07/17 11:13 Warfarin [Coumadin] 10 mg PO ONETIME ONE 07/08/17 05:11 INR,PT,PROTHROMBIN TIME [COAG] AM - Plan Plan:: ASSESSMENT AND PLAN RIGHT LUNG PNEUMONIA WITH EARLY SEPSIS-hemodynamically stable with no evidence of active sepsis over the past 24 hours. White blood cell count normal and he has remained afebrile since yesterday. 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 At the time of this admission I do not reasonably expected evaluation and management of this problem will require more than a 96 hour hospital stay. DISPOSITION-anticipate discharge to home after the hospital stay. PRIMARY CARE PROVIDER-Dr. Davidson
[2017-07-07] MEDS ORDERED: Warfarin 5 MG Tab PO ONE (12:00)
[2017-07-07] MEDS: amLODIPine 5 MG Tab PO SCH (15:00)
[2017-07-07] MEDS: Donepezil 10 MG Tab PO SCH (20:10)
[2017-07-07] MEDS: Melatonin 3 MG Tab PO SCH (20:12)
[2017-07-08] MEDS: Albuterol/Ipratropium 3.0-0.5 MG/3 ML Neb Soln NEB SCH ×2 (07:14→10:41)
[2017-07-08] MEDS: carBAMazepine 200 MG Tab PO SCH (07:21)
[2017-07-08] MEDS: Formoterol/Mometasone 200-5 MCG 8.8 GM Inhaler IH SCH (07:36)
[2017-07-08] MEDS: Citalopram 20 MG Tab PO SCH (08:55)
[2017-07-08] MEDS: Magnesium Oxide 400 MG Tab PO SCH (08:56)
[2017-07-08] MEDS: Furosemide 40 MG Tab PO SCH (08:56)
[2017-07-08] MEDS: Metoprolol Succinate 50 MG Tab.ER PO SCH (08:56)
[2017-07-08] MEDS: Aspirin 81 MG Tab.EC PO SCH (08:56)
[2017-07-08] MEDS: Calcium Polycarbophil 625 MG Tab PO SCH (08:56)
[2017-07-08] MEDS: Tamsulosin 0.4 MG Cap.ER PO SCH (08:56)
[2017-07-08] MEDS: Potassium Chloride 20 MEQ Tab.ER PO SCH (08:56)
[2017-07-08 11:06] VITALS: BP 135/72
--- NOTE | 2017-07-08 11:11 | PCM.DCSUM1 ---
Discharge Summary - Hospital Course Brief History: This patient is an 81-year-old gentleman who is admitted through the emergency department with a 5-6 day history of cough, progressive weakness, shortness of breath, and recent fever. - Discharge Data Discharge Date: 07/08/17 Discharge Disposition: DC/Tfer to [facility] 03 Condition: Stable - Discharge Diagnosis/Problem(s) (1) Dementia SNOMED Code(s): 11728618 ICD Code: F03.90 - UNSPECIFIED DEMENTIA WITHOUT BEHAVIORAL DISTURBANCE Status: Acute Current Visit: Yes (2) Pneumonia involving right lung SNOMED Code(s): 939275325 ICD Code: J18.9 - PNEUMONIA, UNSPECIFIED ORGANISM Status: Acute Current Visit: Yes (3) COPD (chronic obstructive pulmonary disease) SNOMED Code(s): 27208534 ICD Code: J44.9 - CHRONIC OBSTRUCTIVE PULMONARY DISEASE, UNSPECIFIED Status : Chronic Current Visit: No (4) Anticoagulated on Coumadin SNOMED Code(s): 29654064 ICD Code: Z51.81 - ENCOUNTER FOR THERAPEUTIC DRUG LEVEL MONITORING; Z79.01 - [employer] (CURRENT) USE OF ANTICOAGULANTS Status: Chronic Priority: Medium Current Visit: No - Patient Summary/Data Consults: Consultations 07/05/17 21:19 PT Evaluation and Treatment [CONS] Routine Please Evaluate and Treat. PT Reason for Consult: Strengthening This query below is only for informational purposes and is not editable. Hospital Course: is an 81-year-old gentleman with a known history of COPD. 5-6 days prior to admission developed symptoms consistent with a upper respiratory tract infection, over a period of 48 hours prior to this admission developed fever and increased shortness of breath with productive cough. On evaluation in the emergency department was felt to have a right lung infiltrate on chest x-ray as well as temperature elevation. White blood cell count was normal, but was elevated the next day after admission. He was felt to have a community-acquired pneumonia and was given IV Rocephin and levofloxacin. Blood and sputum cultures were obtained at the time of admission, sputum culture remained negative. One of 4 blood cultures did come back positive for Staphylococcus warrani. This was felt to represent a contaminant and not actual blood infection. At the time of discharge he was transitioned to oral levofloxacin and will be discharged with an additional 4 days of therapy. He is on long-term anticoagulation with warfarin as of a history of deep vein thrombosis. He remained on warfarin although it did decrease dose, because of concurrent antibiotic therapy. His INR was therapeutic on the day of discharge and will be rechecked in 3 days. Because of current therapy with oral levofloxacin and potential interaction with warfarin his dose of warfarin will be decreased to 7.5 mg daily until he is off of the levofloxacin. His usual dose of warfarin is 15 mg daily in the could be placed back on this dose after he is completed therapy with levofloxacin. Follow-up INR will be obtained in 3 days. [facility] be [facility] for [facility]orative physical therapy and occupational therapy. During his hospital stay he was treated with melatonin 9 mg by mouth daily at bedtime because of his history of dementia. Dementia remained stable throughout his hospital stay and he had no significant delirium. Activity will be as tolerated and he will resume his usual diet. Provider follow-up will be as needed at the [facility]. - Patient Instructions Diet: Usual Diet as Tolerated Activity: As Tolerated Other/Special Instructions: Please schedule follow-up INR for Tuesday, July 11. - Discharge Plan Prescriptions/Med Rec: Levofloxacin [Levaquin] 750 mg PO Q24H #4 tablet Warfarin [Coumadin] 7.5 mg PO DAILY #100 tablet Home Medications: Home Meds Multivitamins/Minerals [Vitamins and Minerals] 1 tab PO DAILY tablet 04/02/15 [ Rx] Furosemide [Lasix] 40 mg PO DAILY 05/30/15 [History] Potassium Chloride [Klor-Con M20] 20 meq PO BID 05/30/15 [History] Cholecalciferol (Vitamin D3) [Vitamin D3] 1,000 units PO DAILY 07/17/15 [History ] Acetaminophen [Tylenol] 650 mg PO BID PRN 07/25/15 [History] Ascorbic Acid [Vitamin C] 500 mg PO DAILY 07/25/15 [History] Aspirin [Ecotrin] 81 mg PO DAILY 07/25/15 [History] [place]-3 Fatty Acids [Fish Oil] 1,000 mg PO DAILY 07/25/15 [History] Vitamin E 400 units PO DAILY 07/25/15 [History] Calcium Polycarbophil [Fibercon] 1 tab PO DAILY 09/15/15 [History] Ranitidine [Zantac] 150 mg PO BID 09/15/15 [History] Metoprolol Succinate [Toprol XL] 50 mg PO DAILY 03/25/16 [History] carBAMazepine [Epitol] 400 mg PO BEDTIME 04/26/16 [History] Tamsulosin [Flomax] 0.4 mg PO DAILY 07/31/16 [History] carBAMazepine [Epitol] 200 mg PO BID 07/31/16 [History] Citalopram [Citalopram HBr] 20 mg PO DAILY 10/27/16 [History] Fluticasone/Salmeterol [Advair 250-50 Diskus] 2 puff INH DAILY 10/29/16 [History ] Donepezil [Aricept] 5 mg PO BEDTIME 11/04/16 [History] amLODIPine Besylate [Norvasc] 5 mg PO DAILY 11/15/16 [History] Levofloxacin [Levaquin] 750 mg PO Q24H #4 tablet 07/08/17 [Rx] Warfarin [Coumadin] 7.5 mg PO DAILY #100 tablet 07/08/17 [Rx] Patient Handouts: Community-Acquired Pneumonia, Adult Referrals: Ancelmo Davidson MD [Primary Care Provider] - - Patient Data Vitals - Most Recent: Last Vital Signs Temp 98.4 F 07/08/17 11:00 Pulse 77 07/08/17 11:00 Resp 16 07/08/17 11:00 BP 135/72 07/08/17 11:00 Pulse Ox 95 07/08/17 11:00 Weight - Most Recent: 235 lb 8 oz I&O - Last 24 hours: Intake & Output 07/07/17 07/08/17 07/08/17 22:59 06:59 14:59 Intake Total 550 Output Total 820 Balance -270 Lab Results - Last 24 hrs: Laboratory Results - last 24 hr 07/08/17 Range/Units 04:23 PT 27.3 H (9.5-12.0) sec INR 2.46 H (0.80-1.20) [facility] Results - Last 24 hrs: Microbiology 07/06/17 03:15 Gram Stain - Final Sputum - Expectorated Respiratory Culture - Final NORMAL RESPIRATORY CORBIN 2 DAYS Med Orders - Current: Current Medications Acetaminophen (Tylenol) 650 mg PO Q4H PRN PRN Reason: Pain (Mild 1-3)/fever Last Admin: 07/07/17 18:04 Dose: 650 mg Albuterol (Proventil Neb Soln) 2.5 mg NEB Q4H PRN PRN Reason: Shortness Of Breath/wheezing Albuterol/Ipratropium (Duoneb 3.0-0.5 Mg/3 Ml) 3 ml NEB QIDRT [facility] Last Admin: 07/08/17 10:41 Dose: 3 ml Amlodipine Besylate (Norvasc) 5 mg PO DAILY@1500 [facility] Last Admin: 07/07/17 15:00 Dose: 5 mg Aspirin (Halfprin) 81 mg PO DAILY [facility] Last Admin: 07/08/17 08:56 Dose: 81 mg Calcium Polycarbophil (Fibercon) 625 mg PO DAILY [facility] Last Admin: 07/08/17 08:56 Dose: 625 mg Carbamazepine (Tegretol Tab) 400 mg PO BEDTIME [facility] Last Admin: 07/07/17 20:12 Dose: 400 mg Carbamazepine (Tegretol Tab) 200 mg PO BID@0800,1500 [facility] Last Admin: 07/08/17 07:21 Dose: 200 mg Citalopram Hydrobromide (Celexa) 20 mg PO DAILY [facility] Last Admin: 07/08/17 08:55 Dose: 20 mg Docusate Sodium (Colace) 100 mg PO BID PRN PRN Reason: Constipation Last Admin: 07/05/17 21:59 Dose: 100 mg Donepezil HCl (Aricept) 5 mg PO BEDTIME [facility] Last Admin: 07/07/17 20:10 Dose: 5 mg Furosemide (Lasix) 40 mg PO DAILY [facility] Last Admin: 07/08/17 08:56 Dose: 40 mg Levofloxacin/Dextrose 750 mg/ (Premix) 150 mls @ 100 mls/hr IV Q24H [facility] Last Admin: 07/07/17 23:28 Dose: 100 mls/hr Lactated Ringer's (Ringers, Lactated) 1,000 mls @ 500 mls/hr IV BOLUS [facility] Last Admin: 07/05/17 23:37 Dose: 500 mls/hr Magnesium Hydroxide (Milk Of Magnesia) 30 ml PO Q12H PRN PRN Reason: Constipation Magnesium Oxide (Magnesium Oxide) 400 mg PO BID [facility] Last Admin: 07/08/17 08:56 Dose: 400 mg Melatonin (Melatonin) 9 mg PO BEDTIME [facility] Last Admin: 07/07/17 20:12 Dose: 9 mg Metoprolol Succinate (Toprol Xl) 50 mg PO DAILY [facility] Last Admin: 07/08/17 08:56 Dose: 50 mg Mometasone Furoate/Formoterol Fumar (Dulera 200-5 Mcg) 0 puff IH BIDRT [facility] Last Admin: 07/08/17 07:36 Dose: 2 puff Ondansetron HCl (Zofran) 4 mg IV Q4H PRN PRN Reason: Nausea/Vomiting Oxycodone HCl (Oxycodone) 5 mg PO Q4H PRN PRN Reason: Pain (moderate 4-6) Polyethylene Glycol (Miralax) 17 gm PO DAILY PRN PRN Reason: Constipation Last Admin: 07/05/17 22:03 Dose: 17 gm Potassium Chloride (Klor-Con M20) 20 meq PO BID [facility] Last Admin: 07/08/17 08:56 Dose: 20 meq Ranitidine HCl (Zantac) 150 mg PO BID [facility] Last Admin: 07/08/17 08:57 Dose: 150 mg Sodium Chloride (Saline Flush) 10 ml FLUSH ASDIRECTED PRN PRN Reason: Keep Vein Open Tamsulosin HCl (Flomax) 0.4 mg PO DAILY [facility] Last Admin: 07/08/17 08:56 Dose: 0.4 mg Discontinued Medications Acetaminophen (Tylenol) 1,000 mg PO NOW ONE Stop: 07/05/17 17:43 Last Admin: 07/05/17 18:30 Dose: 1,000 mg Albuterol (Proventil Neb Soln) 2.5 mg NEB ONETIME ONE Stop: 07/05/17 18:55 Last Admin: 07/05/17 19:31 Dose: 2.5 mg Amlodipine Besylate (Norvasc) 5 mg PO DAILY [facility] Carbamazepine (Tegretol Tab) 200 mg PO BID [facility] Last Admin: 07/05/17 21:58 Dose: Not Given Ceftriaxone Sodium 1 gm/ (Sodium Chloride) 50 mls @ 100 mls/hr IV Q24H [facility] Last Admin: 07/06/17 21:54 Dose: 100 mls/hr Sodium Chloride (Normal Saline) 1,000 mls @ 125 mls/hr IV ASDIRECTED [facility] Last Admin: 07/06/17 16:43 Dose: 125 mls/hr Magnesium Sulfate 2 gm/ Premix 50 mls @ 25 mls/hr IV ONETIME ONE Stop: 07/06/17 11:59 Last Admin: 07/06/17 10:05 Dose: 25 mls/hr Warfarin Sodium (Coumadin) 10 mg PO ONETIME ONE Stop: 07/06/17 17:50 Last Admin: 07/06/17 19:13 Dose: 10 mg Warfarin Sodium (Coumadin) 10 mg PO ONETIME ONE Stop: 07/07/17 12:01 Last Admin: 07/07/17 11:48 Dose: 10 mg *Q Meaningful Use (DIS) - VTE *Q VTE Criteria *Q: VTE Pharmacological Contraindications *Q: High INR Value - Stroke *Q Stroke Criteria *Q: - AMI *Q AMI Criteria *Q:
== END 2017-07-08 11:35 | DRG 871 ==
LOC: JP.ED 16:42 → JP.MS 19:00
PROVIDERS: ADMIT Hospitalist; ATTEND Hospitalist
DX: A41.9 Sepsis, unspecified organism (principal); J18.9 Pneumonia, unspecified organism; J44.9 Chronic obstructive pulmonary disease, unspecified; I10 Essential (primary) hypertension; F03.90 Unspecified dementia, unspecified severity, without behavioral disturbance, psychotic disturbance, mood disturbance, and anxiety; Z66 Do not resuscitate; Z87.891 Personal history of nicotine dependence; G40.909 Epilepsy, unspecified, not intractable, without status epilepticus; R06.02 Shortness of breath; R05 Cough; R50.9 Fever, unspecified; I25.10 Atherosclerotic heart disease of native coronary artery without angina pectoris; I25.2 Old myocardial infarction; Z86.718 Personal history of other venous thrombosis and embolism; Z87.01 Personal history of pneumonia (recurrent); M54.9 Dorsalgia, unspecified; G89.29 Other chronic pain; M19.90 Unspecified osteoarthritis, unspecified site; F32.9 Major depressive disorder, single episode, unspecified; Z95.1 Presence of aortocoronary bypass graft; H91.90 Unspecified hearing loss, unspecified ear; H54.7 Unspecified visual loss; Z96.659 Presence of unspecified artificial knee joint; Z79.82 Long term (current) use of aspirin; Z79.01 Long term (current) use of anticoagulants; Z88.8 Allergy status to other drugs, medicaments and biological substances
CPT/HCPCS: 36415; 71010 ×2; 80053; 85025; 87040 ×2; 87077; 87186; 93005; 99285; A9270; 80048; 81001; 83605; 83735; 85610; 87070; 87205; 93010; 94640; 94640-76; 94664; 97162-GP; J0696; J1956; J3475; J7040; J7050; J7120; J7620

== ENCOUNTER 2017-09-15 07:05 | Emergency (ER) | payer MEDICARE, BC ==
[2017-09-15 07:39] VITALS: BP 124/57
--- NOTE | 2017-09-15 08:12 | EDM.PDOC ---
ED HPI GENERAL MEDICAL PROBLEM - General Chief Complaint: Lower Extremity Injury/Pain Stated Complaint: LT LEG SWOLLEN/RED/TENDER Time Seen by Provider: 09/15/17 07:50 Source of Information: Reports: Patient, Old Records, RN History Limitations: Reports: No Limitations - History of Present Illness INITIAL COMMENTS - FREE TEXT/NARRATIVE: 81 yo male developed some redness to the left leg medially overnight. No fever or chills. Has a hx of DVT and is concerned about this. No increased swelling of that leg. No new respiratory sx's. No tenderness associated with this redness. Onset: Today Onset Date: 09/15/17 Duration: Other (uncertain duration, was not there at bedtime last night.) Location: Reports: Lower Extremity, Left Quality: Reports: Other (no pain) Severity: Mild Improves with: Reports: None Worsens with: Reports: Other (? time) Context: Reports: Other (Hx of DVT) Associated Symptoms: Reports: No Other Symptoms Treatments [employer]: Reports: Other (see below) (None) LEFT;LEG Pain Score (Numeric/FACES): 3 - Related Data Allergies Allergy/AdvReac Type Severity Reaction Status Date / Time triamcinolone Allergy Itching Verified 09/15/17 07:37 triamcinolone acetonide Allergy Rash Verified 09/15/17 07:37 [From Kenalog] Home Meds: Home Meds Multivitamins/Minerals [Vitamins and Minerals] 1 tab PO DAILY tablet 04/02/15 [ Rx] Furosemide [Lasix] 40 mg PO DAILY 05/30/15 [History] Potassium Chloride [Klor-Con M20] 20 meq PO BID 05/30/15 [History] Cholecalciferol (Vitamin D3) [Vitamin D3] 1,000 units PO DAILY 07/17/15 [History ] Acetaminophen [Tylenol] 650 mg PO BID PRN 07/25/15 [History] Ascorbic Acid [Vitamin C] 500 mg PO DAILY 07/25/15 [History] Aspirin [Ecotrin] 81 mg PO DAILY 07/25/15 [History] [place]-3 Fatty Acids [Fish Oil] 1,000 mg PO DAILY 07/25/15 [History] Vitamin E 400 units PO DAILY 07/25/15 [History] Calcium Polycarbophil [Fibercon] 1 tab PO DAILY 09/15/15 [History] Ranitidine [Zantac] 150 mg PO BID 09/15/15 [History] Metoprolol Succinate [Toprol XL] 50 mg PO DAILY 03/25/16 [History] carBAMazepine [Epitol] 400 mg PO BEDTIME 04/26/16 [History] Tamsulosin [Flomax] 0.4 mg PO DAILY 07/31/16 [History] carBAMazepine [Epitol] 200 mg PO BID 07/31/16 [History] Citalopram [Citalopram HBr] 20 mg PO DAILY 10/27/16 [History] Fluticasone/Salmeterol [Advair 250-50 Diskus] 2 puff INH DAILY 10/29/16 [History ] Donepezil [Aricept] 5 mg PO BEDTIME 11/04/16 [History] amLODIPine Besylate [Norvasc] 5 mg PO DAILY 11/15/16 [History] Lovastatin 20 mg PO DAILY 09/15/17 [History] Polyethylene Glycol 3350 [MiraLAX] 17 gm PO DAILY 09/15/17 [History] Warfarin [Coumadin] 12.5 mg PO ASDIRECTED 09/15/17 [History] Warfarin [Coumadin] 15 mg PO ASDIRECTED 09/15/17 [History] Past Medical History HEENT History: Reports: Hard of Hearing, Impaired Vision, Other (See Below) Other HEENT History: bleeding under arm Cardiovascular History: Reports: Blood Clots/VTE/DVT, Bypass, CAD, High Cholesterol, Hypertension, SC Other Cardiovascular History: aug blood clot in l leg. Blood clot l arm. mar Still there. 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 Musculoskeletal Surgical History: Reports: Knee Replacement, Other (See Below) Other Musculoskeletal Surgeries/Procedures:: Back surgery, something with discs Dermatological Surgical History: Reports: None Social & Family History - Family History Family Medical History: Noncontributory HEENT: Reports: None Cardiac: Reports: Aneurysm, CAD - Tobacco Use Smoking Status *Q: Former Smoker Years of Tobacco use: 50 Packs/Tins Daily: 1.1 Used Tobacco, but Quit: Yes Month Tobacco Last Used: 3 years ago Second Hand Smoke Exposure: No - Caffeine Use Caffeine Use: Reports: Coffee Caffeine Use Comment: 2 cups a day - Alcohol Use Days Per Week of Alcohol Use: 1 Number of Drinks Per Day: 1 Total Drinks Per Week: 1 - Recreational Drug Use Recreational Drug Use: No - Living Situation & Occupation Living situation: Reports: Occupation: Retired Review of Systems - Review of Systems Review Of Systems: See Below Constitutional: Reports: No Symptoms Eyes: Reports: No Symptoms Ears: Reports: No Symptoms Nose: Reports: Other (Clear rhinorrhea) Mouth/Throat: Reports: No Symptoms Respiratory: Reports: Cough (chronic) Cardiovascular: Reports: No Symptoms GI/Abdominal: Reports: No Symptoms Genitourinary: Reports: No Symptoms Musculoskeletal: Reports: No Symptoms Skin: Reports: Erythema (L leg medially), Change in Color. Denies: Diaphoresis , Wound Neurological: Reports: No Symptoms (nothing new) ED EXAM, GENERAL - Physical Exam Exam: See Below Exam Limited By: No Limitations General Appearance: Alert, WD/WN, No Apparent Distress Eye Exam: Bilateral Eye: Normal Inspection Ears: Normal External Exam, Normal Canal, Hearing Grossly Normal Ear Exam: Bilateral Ear: Auricle Normal, Canal Normal Nose: Normal Inspection, Normal Mucosa, No Blood Throat/Mouth: Normal Inspection, Normal Lips, Normal Oropharynx, Normal Voice, No Airway Compromise Head: Atraumatic, Normocephalic Neck: Normal Inspection Respiratory/Chest: No Respiratory Distress, Lungs Clear, Decreased Breath Sounds (bilaterally) Cardiovascular: Regular Rate, Rhythm GI/Abdominal: Normal Bowel Sounds, Soft, Non-Tender, No Distention Extremities: Normal Range of Motion, Non-Tender, Pedal Edema (Trace pitting edema to both LE's below the knees.), Redness. No: No Pedal Edema Neurological: Alert, Oriented, CN II-XII Intact, Normal Cognition, No Motor/ Sensory Deficits Psychiatric: Normal Affect, Normal Mood Skin Exam: Warm, Dry, Intact, Normal Color, No Rash, Erythema, Increased Warmth (to the medial L leg from the calf to the proximal thigh.) Lymphatic: No Adenopathy Course - Vital Signs Last Recorded V/S: Last Vital Signs Temp 35.4 C 09/15/17 07:51 Pulse 72 09/15/17 07:51 Resp 16 09/15/17 07:51 BP 124/57 L 09/15/17 07:51 Pulse Ox 94 L 09/15/17 07:51 - Orders/Labs/Meds Labs: Laboratory Tests 09/15/17 09/15/17 09/15/17 Range/Units 08:12 08:12 08:12 WBC 6.9 (4.5-11.0) K/uL RBC 3.84 L (4.30-5.90) M/uL Hgb 12.0 D (12.0-15.0) g/dL Hct 34.9 L (40.0-54.0) % MCV 91 (80-98) fL MCH 31 (27-31) pg MCHC 34 (32-36) % Plt Count 210 (150-400) K/uL D-Dimer, Quantitative 112 (0.0-400.0) ng/mL Sodium 129 L (140-148) mmol/L Potassium 4.3 (3.6-5.2) mmol/L Chloride 94 L (100-108) mmol/L Carbon Dioxide 29 (21-32) mmol/L Anion Gap 10.3 (5.0-14.0) mmol/L BUN 23 H (7-18) mg/dL Creatinine 1.2 (0.8-1.3) mg/dL Est Cr Clr Drug Dosing 53.64 mL/min Estimated GFR (MDRD) 58 L (>60) Glucose 121 H (74-106) mg/dL Calcium 8.9 (8.5-10.1) mg/dL C-Reactive Protein 4.63 H (0.0-0.3) mg/dL Meds: Medications Discontinued Medications Generic Name Dose Route Start Last Admin Trade Name Freq PRN Reason Stop Dose Admin Ceftriaxone Sodium 2 gm/ 50 mls @ 100 mls/hr 09/15/17 08:59 09/15/17 09:17 Sodium Chloride IV 09/15/17 09:28 100 mls/hr ONETIME ONE Administration Sodium Chloride 1,000 mls @ 1,000 mls/hr 09/15/17 08:58 09/15/17 09:18 Normal Saline IV 09/15/17 09:57 1,000 mls/hr .BOLUS ONE Administration Departure - Departure Time of Disposition: 10:45 Disposition: Home, Self-Care 01 Condition: Fair Clinical Impression: Cellulitis Qualifiers: Site of cellulitis: extremity Site of cellulitis of extremity: lower extremity Laterality: left Qualified Code(s): L03.116 - Cellulitis of left lower limb - Discharge Information Referrals: Ancelmo Davidson MD [Primary Care Provider] - Forms: ED Department Discharge
[2017-09-15] MEDS ORDERED: Sodium Chloride 0.9% 1,000 ML IV ONE (08:58)
[2017-09-15] MEDS ORDERED: cefTRIAXone 2 GM in Sodium Chloride 0.9% 50 ML IV ONE (08:59)
== END 2017-09-15 11:05 | disposition home or self-care (01) ==
LOC: JP.ED 07:05
DX: L03.116 Cellulitis of left lower limb (principal); Z87.891 Personal history of nicotine dependence; I10 Essential (primary) hypertension; E78.00 Pure hypercholesterolemia, unspecified; I25.10 Atherosclerotic heart disease of native coronary artery without angina pectoris; Z95.1 Presence of aortocoronary bypass graft; Z79.82 Long term (current) use of aspirin; Z79.899 Other long term (current) drug therapy; Z88.8 Allergy status to other drugs, medicaments and biological substances; Z86.718 Personal history of other venous thrombosis and embolism
CPT/HCPCS: 36415; 80048; 85027; 85379; 86140; 96361; 96365; 99284; J0696; J7040; J7050

== ENCOUNTER 2017-11-07 09:45 | Emergency (ER) | payer MEDICARE, BC ==
[2017-11-07] MEDS ORDERED: Ondansetron 4 MG Tab.DIS PO ONE (11:23)
--- NOTE | 2017-11-07 12:16 | CR ---
Chest 1V Frontal INDICATION: copd FINDINGS: Comparison 07/05/2017. Focal opacity in the right upper lobe has resolved since prior exam. There is new minimal infiltrate or atelectasis in the right lung base. Sternotomy. Chest otherwise ne gative.
--- NOTE | 2017-11-07 13:20 | CT ---
Head wo Cont INDICATION: episodes of tingling both arms and confusion Total DLP 817 COMPARISON: CT 10/27/2016. FINDINGS: No acute intracranial hemorrhage, mass, or edema. Generalized cerebral and cerebellar volum e loss. Patchy low attenuation in the periventricular and subcortical deep white matter is nonspecifi c, but most compatible with chronic small-vessel ischemic changes. Stable chronic encephalomalacia ri ght frontal lobe. Old right craniotomy. Extensive paranasal sinus disease that has worsened since jerri or CT. Remainder unremarkable. IMPRESSION: No acute intracranial abnormality. Worsening of extensive paranasal sinus disease since prior CT.
--- NOTE | 2017-11-07 14:17 | EDM.PDOC ---
ED HPI GENERAL MEDICAL PROBLEM - General Chief Complaint: Neuro Symptoms/Deficits Stated Complaint: BLOOD PRESSURE HIGH Time Seen by Provider: 11/07/17 09:55 Source of Information: Reports: Patient, Family History Limitations: Reports: No Limitations - History of Present Illness INITIAL COMMENTS - FREE TEXT/NARRATIVE: Pt arrived with a history Of 3-4 episoded. Pt has had 3 episodes of Of tingling dpown both arms. he gets nauseated and wretches and then he seemes more confused. Pt arrived with this history but he has no further episodes of these after arrival. Onset: Today, Other (pt has had episodes similar in the past. ) Duration: Hour(s): Location: Reports: Upper Extremity, Left, Upper Extremity, Right, Other (pt has tingling in both arms and nausea ans some confusion. The episodes last for 5-7 minutes. ) Associated Symptoms: Reports: Nausea/Vomiting - Related Data Allergies Allergy/AdvReac Type Severity Reaction Status Date / Time triamcinolone Allergy Itching Verified 11/07/17 10:03 triamcinolone acetonide Allergy Rash Verified 11/07/17 10:03 [From Kenalog] Home Meds: Home Meds Multivitamins/Minerals [Vitamins and Minerals] 1 tab PO DAILY tablet 04/02/15 [ Rx] Furosemide [Lasix] 40 mg PO DAILY 05/30/15 [History] Potassium Chloride [Klor-Con M20] 20 meq PO BID 05/30/15 [History] Cholecalciferol (Vitamin D3) [Vitamin D3] 1,000 units PO DAILY 07/17/15 [History ] Acetaminophen [Tylenol] 650 mg PO BID PRN 07/25/15 [History] Ascorbic Acid [Vitamin C] 500 mg PO DAILY 07/25/15 [History] Aspirin [Ecotrin] 81 mg PO DAILY 07/25/15 [History] [place]-3 Fatty Acids [Fish Oil] 1,000 mg PO DAILY 07/25/15 [History] Vitamin E 400 units PO DAILY 07/25/15 [History] Ranitidine [Zantac] 150 mg PO BID 09/15/15 [History] Metoprolol Succinate [Toprol XL] 50 mg PO DAILY 03/25/16 [History] carBAMazepine [Epitol] 400 mg PO BEDTIME 04/26/16 [History] Tamsulosin [Flomax] 0.4 mg PO DAILY 07/31/16 [History] carBAMazepine [Epitol] 200 mg PO BID 07/31/16 [History] Citalopram [Citalopram HBr] 20 mg PO DAILY 10/27/16 [History] Fluticasone/Salmeterol [Advair 250-50 Diskus] 2 sprays NASBOTH DAILY 10/29/16 [ History] Donepezil [Aricept] 10 mg PO BEDTIME 11/04/16 [History] amLODIPine Besylate [Norvasc] 5 mg PO DAILY 11/15/16 [History] Lovastatin 20 mg PO BEDTIME 09/15/17 [History] Polyethylene Glycol 3350 [MiraLAX] 17 gm PO DAILY 09/15/17 [History] Warfarin [Coumadin] mg PO ASDIRECTED 09/15/17 [History] Past Medical History HEENT History: Reports: Hard of Hearing, Impaired Vision, Other (See Below) Other HEENT History: bleeding under arm Cardiovascular History: Reports: Blood Clots/VTE/DVT, Bypass, CAD, High Cholesterol, Hypertension, [place] Other Cardiovascular History: aug blood clot in l leg. Blood clot l arm. mar Still there. 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 Musculoskeletal Surgical History: Reports: Knee Replacement Other Musculoskeletal Surgeries/Procedures:: Back surgery, something with discs Social & Family History - Family History Family Medical History: Noncontributory HEENT: Reports: None Cardiac: Reports: Aneurysm, CAD - Tobacco Use Smoking Status *Q: Unknown Ever Smoked Years of Tobacco use: 50 Packs/Tins Daily: 1.1 Used Tobacco, but Quit: Yes Month Tobacco Last Used: 3 years ago Second Hand Smoke Exposure: No - Caffeine Use Caffeine Use: Reports: Coffee Caffeine Use Comment: 2 cups a day - Alcohol Use Days Per Week of Alcohol Use: 1 Number of Drinks Per Day: 1 Total Drinks Per Week: 1 - Recreational Drug Use Recreational Drug Use: No - Living Situation & Occupation Living situation: Reports: Occupation: Retired ED ROS GENERAL - Review of Systems Review Of Systems: See Below Constitutional: Reports: No Symptoms, Other (pt did have a low grade temp earlier today. ) HEENT: Reports: Sinus Problem, Other (pt is very stuffed up in the nose. He does blow out some greenish yellow sputum. ) Respiratory: Reports: No Symptoms Cardiovascular: Reports: No Symptoms Endocrine: Reports: No Symptoms GI/Abdominal: Reports: Nausea, Vomiting : Reports: No Symptoms Musculoskeletal: Reports: No Symptoms Skin: Reports: No Symptoms ED EXAM, NEURO - Physical Exam Exam: See Below Text/Narrative:: pt arrived stating that he was feeling back to normal at this time. He had several episodes of tingling down both arms more confusion and vomiting. These episodes lasted for about 5 min. The longest one was 7 minutes. He had 3 episodes this am. He did have a heaD SCAN WHICH SHOWED SEVERE AL SINUSITIS. Exam Limited By: No Limitations General Appearance: Alert, No Apparent Distress, Other (PUPILS EQUAL AND REACTIVE. ) Ears: Normal TMs Nose: Normal Inspection Throat/Mouth: Normal Inspection Head Exam: Atraumatic Neck: Normal Inspection Respiratory/Chest: No Respiratory Distress, Other (HE HAS COPD AND HE CHRONICLY HAS SOME CONGESTION) Cardiovascular: Regular Rate, Rhythm GI/Abdominal: Soft, Non-Tender (Male) Exam: Deferred Rectal (Males) Exam: Deferred Neurological: Alert, Oriented x 3, Other (PT STATED THAT HE FELT BACK TO NORMAL. ) Back Exam: Normal Inspection Extremities: Normal Inspection Psychiatric: Normal Affect Course - Vital Signs Last Recorded V/S: Last Vital Signs Temp 37.2 C 11/07/17 09:54 Pulse 79 11/07/17 14:57 Resp 15 11/07/17 14:01 BP 114/71 11/07/17 14:57 Pulse Ox 88 L 11/07/17 14:57 - Orders/Labs/Meds Orders: Active Orders 24 hr Category Date Time Status Cardiac Monitoring [RC] .As Directed Care 11/07/17 11:55 Active Labs: Laboratory Tests 11/07/17 11/07/17 11/07/17 Range/Units 11:19 11:19 11:19 WBC 11.3 H (4.5-11.0) K/uL RBC 4.04 L (4.30-5.90) M/uL Hgb 12.6 (12.0-15.0) g/dL Hct 36.5 L (40.0-54.0) % MCV 90 (80-98) fL MCH 31 (27-31) pg MCHC 35 (32-36) % Plt Count 186 (150-400) K/uL Neut % (Auto) 88 H (36-66) % Lymph % (Auto) 3 L (24-44) % [place] % (Auto) 6 (2-6) % Eos % (Auto) 2 (2-4) % Baso % (Auto) 0 (0-1) % PT 19.4 H (9.5-12.0) sec INR 1.77 H (0.80-1.20) Sodium 130 L (140-148) mmol/L Potassium 4.5 (3.6-5.2) mmol/L Chloride 94 L (100-108) mmol/L Carbon Dioxide 28 (21-32) mmol/L Anion Gap 12.5 (5.0-14.0) mmol/L BUN 17 (7-18) mg/dL Creatinine 1.0 (0.8-1.3) mg/dL Est Cr Clr Drug Dosing 64.36 mL/min Estimated GFR (MDRD) > 60 (>60) Glucose 130 H (74-106) mg/dL Calcium 9.1 (8.5-10.1) mg/dL Total Bilirubin 0.7 (0.2-1.0) mg/dL AST 18 (15-37) U/L ALT 22 (12-78) U/L Alkaline Phosphatase 80 (46-116) U/L Total Protein 7.1 (6.4-8.2) g/dL Albumin 3.5 (3.4-5.0) g/dL Globulin 3.6 H (2.3-3.5) g/dL Albumin/Globulin Ratio 1.0 L (1.2-2.2) Urine Color Urine Appearance Urine pH (4.5-8.0) Ur Specific [place] (1.008-1.030) Urine Protein (NEGATIVE) mg/dL Urine Glucose (UA) (NEGATIVE) mg/dL Urine Ketones (NEGATIVE) mg/dL Urine Occult Blood (NEGATIVE) Urine Nitrite (NEGAITVE) Urine Bilirubin (NEGATIVE) Urine Urobilinogen (NORMAL) mg/dL Ur Leukocyte Esterase (NEGATIVE) Urine RBC (0-5) Urine WBC (0-5) Ur Epithelial Cells Amorphous Sediment Urine Bacteria Urine Mucus 11/07/17 Range/Units 11:19 WBC (4.5-11.0) K/uL RBC (4.30-5.90) M/uL Hgb (12.0-15.0) g/dL Hct (40.0-54.0) % MCV (80-98) fL MCH (27-31) pg MCHC (32-36) % Plt Count (150-400) K/uL Neut % (Auto) (36-66) % Lymph % (Auto) (24-44) % [place] % (Auto) (2-6) % Eos % (Auto) (2-4) % Baso % (Auto) (0-1) % PT (9.5-12.0) sec INR (0.80-1.20) Sodium (140-148) mmol/L Potassium (3.6-5.2) mmol/L Chloride (100-108) mmol/L Carbon Dioxide (21-32) mmol/L Anion Gap (5.0-14.0) mmol/L BUN (7-18) mg/dL Creatinine (0.8-1.3) mg/dL Est Cr Clr Drug Dosing mL/min Estimated GFR (MDRD) (>60) Glucose (74-106) mg/dL Calcium (8.5-10.1) mg/dL Total Bilirubin (0.2-1.0) mg/dL AST (15-37) U/L ALT (12-78) U/L Alkaline Phosphatase (46-116) U/L Total Protein (6.4-8.2) g/dL Albumin (3.4-5.0) g/dL Globulin (2.3-3.5) g/dL Albumin/Globulin Ratio (1.2-2.2) Urine Color Yellow Urine Appearance Slightly cloudy Urine pH 7.0 (4.5-8.0) Ur Specific [place] 1.005 L (1.008-1.030) Urine Protein Negative (NEGATIVE) mg/dL Urine Glucose (UA) Normal (NEGATIVE) mg/dL Urine Ketones Negative (NEGATIVE) mg/dL Urine Occult Blood Negative (NEGATIVE) Urine Nitrite Negative (NEGAITVE) Urine Bilirubin Negative (NEGATIVE) Urine Urobilinogen Normal (NORMAL) mg/dL Ur Leukocyte Esterase Negative (NEGATIVE) Urine RBC 0-5 (0-5) Urine WBC 0-5 (0-5) Ur Epithelial Cells Not seen Amorphous Sediment Moderate Urine Bacteria Rare Urine Mucus Not seen Meds: Medications Discontinued Medications Generic Name Dose Route Start Last Admin Trade Name Freq PRN Reason Stop Dose Admin Ondansetron HCl 4 mg 11/07/17 11:23 11/07/17 11:39 Zofran Odt PO 11/07/17 11:24 4 mg ONETIME ONE Administration - Re-Assessments/Exams Free Text/Narrative Re-Assessment/Exam: 11/07/17 14:58 PT HAD NORMAL LOOKING LAB WORK. hE HAD A CAT SCAN OF THE HEAD WHICH SHOWED PANSINUSITIS WHICH WAS ALOT WORSE TODAY. hIS CAt SCAN WAS OTHERWISE NEG. 11/08/17 07:38 Departure - Departure Time of Disposition: 14:44 Disposition: Home, Self-Care 01 Condition: Fair Clinical Impression: Pansinusitis, Episodes of decreased attentiveness, Nausea, COPD (chronic obstructive pulmonary disease) - Discharge Information Instructions: Nausea, Adult, Chronic Obstructive Pulmonary Disease, Easy-to- Read Referrals: Ancelmo Davidson MD [Primary Care Provider] - Forms: ED Department Discharge Care Plan Goals: augmentin 875 bid, use yogurt and probiotic while on augmentin, appt with Dr Davidson 1 week, check protime in 1 week, zoforan sub ling q6h prn for nausea. - My Orders Last 24 Hours: My Active Orders 11/07/17 11:55 Cardiac Monitoring [RC] .As Directed - Assessment/Plan Last 24 Hours: My Active Orders 11/07/17 11:55 Cardiac Monitoring [RC] .As Directed
[2017-11-07 14:58] VITALS: BP 114/71
== END 2017-11-07 15:03 | disposition home or self-care (01) ==
LOC: JP.ED 09:45
DX: J32.4 Chronic pansinusitis (principal); J44.9 Chronic obstructive pulmonary disease, unspecified; R41.840 Attention and concentration deficit; R11.0 Nausea; I10 Essential (primary) hypertension; E78.00 Pure hypercholesterolemia, unspecified; Z87.891 Personal history of nicotine dependence; Z79.82 Long term (current) use of aspirin; Z79.01 Long term (current) use of anticoagulants; Z79.899 Other long term (current) drug therapy; Z88.1 Allergy status to other antibiotic agents
CPT/HCPCS: 36415; 70450; 71045; 80053; 81001; 85025; 85610; 99285; A9270; 99284

== ENCOUNTER 2017-12-16 09:46 | Emergency (ER) | payer MEDICARE, BC ==
--- NOTE | 2017-12-16 11:21 | CT ---
CT head Indication: Trauma. Total DLP 868. Comparison: 11/07/2017. Findings: Prior craniotomy. Patchy hypodensity within the right frontal lobe indicating encephalomala antonio similar compared to prior. There is some dural thickening right high parietal lobe similar. No ex tra-axial fluid collection. No evidence for hemorrhage. Vascular calcifications. Ventricular size sim ilar. Extensive opacification of all the sinuses. This is similar compared to prior. Increased radiod ensity can indicate fungal colonization as well. Similar compared to most recent exam. Impression: 1. No acute intracranial hemorrhage or subacute territorial infarct.
--- NOTE | 2017-12-16 12:49 | EDM.PDOC ---
ED HPI GENERAL MEDICAL PROBLEM - General Chief Complaint: Head Injury Stated Complaint: CONCUSSION?? Time Seen by Provider: 12/16/17 10:24 Source of Information: Reports: Family History Limitations: Reports: Physical Impairment (This patient is able to give just a little bit of history but his gives about 99% with a history) - History of Present Illness INITIAL COMMENTS - FREE TEXT/NARRATIVE: Patient was brought in by his he fell 2 days ago I believe it was in the bathroom and hit his head against the vanity. Today he seems to have some little bit blurry vision occasionally some weakness. His said that occasionally he'll get some dizzy spells. Initially she said that it's when he gets up he'll suddenly feel like he's going to pass out something like that but then later she said that this happens even when he's lying down or sitting. Patient wasn't really able to explain what he meant by dizziness. He does have problem with his ears he tends to get a lot of of the cerumen in the years and has had them flushed out before. Also has a history of sinusitis was treated with antibiotics recently. DEnies Pain Score (Numeric/FACES): 0 - Related Data Allergies Allergy/AdvReac Type Severity Reaction Status Date / Time triamcinolone Allergy Itching Verified 12/16/17 10:06 triamcinolone acetonide Allergy Rash Verified 12/16/17 10:06 [From Kenalog] Home Meds: Home Meds Multivitamins/Minerals [Vitamins and Minerals] 1 tab PO DAILY tablet 04/02/15 [ Rx] Furosemide [Lasix] 20 mg PO DAILY 05/30/15 [History] Potassium Chloride [Klor-Con M20] 20 meq PO BID 05/30/15 [History] Cholecalciferol (Vitamin D3) [Vitamin D3] 1,000 units PO DAILY 07/17/15 [History ] Acetaminophen [Tylenol] 650 mg PO BID PRN 07/25/15 [History] Ascorbic Acid [Vitamin C] 500 mg PO DAILY 07/25/15 [History] Aspirin [Ecotrin] 81 mg PO DAILY 07/25/15 [History] [place]-3 Fatty Acids [Fish Oil] 1,000 mg PO DAILY 07/25/15 [History] Vitamin E 400 units PO DAILY 07/25/15 [History] Ranitidine [Zantac] 150 mg PO BID 09/15/15 [History] Metoprolol Succinate [Toprol XL] 50 mg PO DAILY 03/25/16 [History] carBAMazepine [Epitol] 400 mg PO BEDTIME 04/26/16 [History] Tamsulosin [Flomax] 0.4 mg PO DAILY 07/31/16 [History] carBAMazepine [Epitol] 200 mg PO BID 07/31/16 [History] Citalopram [Citalopram HBr] 20 mg PO DAILY 10/27/16 [History] amLODIPine Besylate [Norvasc] 5 mg PO DAILY 11/15/16 [History] Lovastatin 20 mg PO BEDTIME 09/15/17 [History] Polyethylene Glycol 3350 [MiraLAX] 17 gm PO DAILY 09/15/17 [History] Warfarin [Coumadin] mg PO ASDIRECTED 09/15/17 [History] Fluticasone/Vilanterol [Breo Ellipta 100-25 MCG Inhalation Kit] 1 each INH DAILY 12/16/17 [History] Past Medical History HEENT History: Reports: Hard of Hearing, Impaired Vision, Other (See Below) Other HEENT History: bleeding under arm Cardiovascular History: Reports: Blood Clots/VTE/DVT, Bypass, CAD, High Cholesterol, Hypertension, [place] Other Cardiovascular History: nov dx blood clot in l leg. Blood clot l arm. mar Still there. 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 Musculoskeletal Surgical History: Reports: Knee Replacement Other Musculoskeletal Surgeries/Procedures:: Back surgery, something with discs Social & Family History - Family History Family Medical History: Noncontributory HEENT: Reports: None Cardiac: Reports: Aneurysm, CAD - Tobacco Use Smoking Status *Q: Former Smoker Years of Tobacco use: 50 Packs/Tins Daily: 1.1 Used Tobacco, but Quit: Yes Month Tobacco Last Used: 3 years ago Second Hand Smoke Exposure: No - Caffeine Use Caffeine Use: Reports: Coffee Caffeine Use Comment: 2 cups a day - Alcohol Use Days Per Week of Alcohol Use: 1 Number of Drinks Per Day: 1 Total Drinks Per Week: 1 - Recreational Drug Use Recreational Drug Use: No - Living Situation & Occupation Living situation: Reports: Occupation: Retired ED ROS GENERAL - Review of Systems Review Of Systems: See Below Constitutional: Reports: No Symptoms, Weakness HEENT: Reports: No Symptoms Respiratory: Reports: No Symptoms Cardiovascular: Reports: No Symptoms Endocrine: Reports: No Symptoms GI/Abdominal: Reports: No Symptoms : Reports: No Symptoms Musculoskeletal: Reports: No Symptoms Skin: Reports: No Symptoms Neurological: Reports: Other (Some blurring of vision as per his the patient says his vision seems to be fine) Psychiatric: Reports: No Symptoms Hematologic/Lymphatic: Reports: No Symptoms Immunologic: Reports: No Symptoms ED EXAM, HEAD INJURY - Physical Exam Exam: See Below Exam Limited By: No Limitations General Appearance: Alert, Other (He seems to be chronically ill but not in any kind of distress.) Head: Atraumatic (I'm not able to see any kind of trauma to his head) Eyes: Bilateral Eye: PERRL Ears: Other (Lots of wet cerumen in the ears. 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 He does have limited range of motion.) Respiratory: Lungs Clear Cardiovascular: Regular Rate, Rhythm GI/Abdominal Exam: Non-Tender Back Exam: Normal Inspection Extremities: Normal Inspection Neurologic: No Motor/Sensory Deficits, Normal Mood/Affect, Oriented x 3 Skin: Normal Color Course - Vital Signs Last Recorded V/S: Last Vital Signs Temp 36.0 C 12/16/17 10:23 Pulse 72 12/16/17 10:23 Resp 17 12/16/17 10:23 BP 138/83 12/16/17 10:23 Pulse Ox 95 12/16/17 10:23 Orthostatic Blood Pressure [ 117/87 Standing] Orthostatic Blood Pressure [ 147/78 Sitting] Orthostatic Blood Pressure [ 163/96 Supine] - Orders/Labs/Meds Labs: Laboratory Tests 12/16/17 12/16/17 12/16/17 Range/Units 10:45 10:45 10:45 WBC 7.4 (4.5-11.0) K/uL RBC 3.95 L (4.30-5.90) M/uL Hgb 12.3 (12.0-15.0) g/dL Hct 35.7 L (40.0-54.0) % MCV 90 (80-98) fL MCH 31 (27-31) pg MCHC 35 (32-36) % Plt Count 206 (150-400) K/uL Neut % (Auto) 58 (36-66) % Lymph % (Auto) 9 L (24-44) % [place] % (Auto) 9 H (2-6) % Eos % (Auto) 24 H (2-4) % Baso % (Auto) 0 (0-1) % PT 41.4 H (9.5-12.0) sec INR 3.67 H (0.80-1.20) Sodium 132 L (140-148) mmol/L Potassium 4.6 (3.6-5.2) mmol/L Chloride 98 L (100-108) mmol/L Carbon Dioxide 28 (21-32) mmol/L Anion Gap 10.6 (5.0-14.0) mmol/L BUN 16 (7-18) mg/dL Creatinine 1.0 (0.8-1.3) mg/dL Est Cr Clr Drug Dosing 64.36 mL/min Estimated GFR (MDRD) > 60 (>60) Glucose 113 H (74-106) mg/dL Calcium 8.6 (8.5-10.1) mg/dL Total Bilirubin 0.4 (0.2-1.0) mg/dL AST 18 (15-37) U/L ALT 19 (12-78) U/L Alkaline Phosphatase 87 (46-116) U/L Total Protein 6.9 (6.4-8.2) g/dL Albumin 3.3 L (3.4-5.0) g/dL Globulin 3.6 H (2.3-3.5) g/dL Albumin/Globulin Ratio 0.9 L (1.2-2.2) - Radiology Interpretation Free Text/Narrative:: Head CT showed no acute intracranial abnormalities. We did note opacification of all the sinuses and his says that that's been seen before and is been treated recently. - Re-Assessments/Exams Free Text/Narrative Re-Assessment/Exam: 12/16/17 12:53 All labs were discussed with the patient and his . CT findings were discussed. Also orthostatics were done which showed supine blood pressure 163/ 96 pulse 71 sitting blood pressure 147/78 pulse 72 standing blood pressure 117/ 87 pulse 74 but oxygen saturation dropped to 84%. I explained that the blood pressure is low enough right now to cause any kind of dizziness but the fact that it's dropping quite a bit when he standing up suggests that that could be happening even more so at home when he gets these dizzy spells. This is not something that I want to attempt treating but it's something that should be discussed with his doctor. Also the sinusitis should be discussed with his doctor is not something should attempt to treat here in the ER. I stressed the importance thing we discovered is that he does not have a cerebral hemorrhage. INR is elevated but that was checked on Tuesday and some adjustments were made. They're supposed to have it rechecked on Tuesday and I think that would be appropriate no changes right now Departure - Departure Time of Disposition: 12:56 Disposition: Home, Self-Care 01 Condition: Fair Clinical Impression: Minor head injury, Dizziness, Chronic panethmoidal sinusitis - Discharge Information Referrals: Ancelmo Davidson MD [Primary Care Provider] - Forms: ED Department Discharge Additional Instructions: The INR today is still elevated just slightly less than it was on Tuesday. You should get it checked again on Tuesday. It's too early for any changes to be reflected in today's labs. Discussion with your Dr. they drop in blood pressure when he stands since that could have some correlation with his dizziness. Nothing needs to be done right now however. The sinusitis is continuing and that is something also to talk with his doctor about There is also a lot of wet cerumen in the ears but it doesn't look infected. Your Dr. may be able to recommend some products to help prevent this.
[2017-12-16 13:25] VITALS: BP 121/84
== END 2017-12-16 13:28 | disposition home or self-care (01) ==
LOC: JP.ED 09:46
DX: S09.90XA Unspecified injury of head, initial encounter (principal); J32.2 Chronic ethmoidal sinusitis; E78.00 Pure hypercholesterolemia, unspecified; I10 Essential (primary) hypertension; I25.2 Old myocardial infarction; Z88.8 Allergy status to other drugs, medicaments and biological substances; Z79.899 Other long term (current) drug therapy; Z79.82 Long term (current) use of aspirin; Z87.891 Personal history of nicotine dependence; W01.198A Fall on same level from slipping, tripping and stumbling with subsequent striking against other object, initial encounter; Y92.002 Bathroom of unspecified non-institutional (private) residence as the place of occurrence of the external cause
CPT/HCPCS: 36415; 70450; 70450-26; 80053; 85025; 85610; 99284-25

== ENCOUNTER 2017-12-22 15:57 | Observation (INO) | payer MEDICARE, BC ==
--- NOTE | 2017-12-22 17:20 | EDM.PDOC ---
ED HPI GENERAL MEDICAL PROBLEM - General Chief Complaint: General Stated Complaint: [facility] Time Seen by Provider: 12/22/17 17:00 Source of Information: Reports: EMS, Family, Old Records History Limitations: Reports: Other (dementia) - History of Present Illness INITIAL COMMENTS - FREE TEXT/NARRATIVE: 82 yo male presents via EMS after a fall at home with a minor L arm laceration. He normally walks with a walker and his 's assistance. She had to leave the home for a few minutes and when she returned he had tried to get up without assistance and fell. She found him still on the floor. EMS noted some BP elevation during transport. He has known dementia and the says he has been declining mentally fairly steadily, with an almost daily change per her report. Onset: Today Onset Date: 12/22/17 Onset Time: 15:55 Duration: Minutes:, Constant Location: Reports: Upper Extremity, Left Quality: Reports: Dull Severity: Mild Improves with: Reports: None Worsens with: Reports: None Context: Reports: Trauma (elderly fall) Associated Symptoms: Reports: No Other Symptoms Treatments DELIVERY SPECIALIST: Reports: Other (see below) (none) Lower Back Pain Score (Numeric/FACES): 6 - Related Data Allergies Allergy/AdvReac Type Severity Reaction Status Date / Time triamcinolone Allergy Itching Verified 12/16/17 10:06 triamcinolone acetonide Allergy Rash Verified 12/16/17 10:06 [From Kenalog] Home Meds: Home Meds Multivitamins/Minerals [Vitamins and Minerals] 1 tab PO DAILY tablet 04/02/15 [ Rx] Furosemide [Lasix] 40 mg PO DAILY 05/30/15 [History] Potassium Chloride [Klor-Con M20] 20 meq PO BID 05/30/15 [History] Cholecalciferol (Vitamin D3) [Vitamin D3] 1,000 units PO DAILY 07/17/15 [History ] Acetaminophen [Tylenol] 650 mg PO BID PRN 07/25/15 [History] Ascorbic Acid [Vitamin C] 500 mg PO DAILY 07/25/15 [History] [place]-3 Fatty Acids [Fish Oil] 1,000 mg PO DAILY 07/25/15 [History] Vitamin E 400 units PO DAILY 07/25/15 [History] Ranitidine [Zantac] 150 mg PO BID 09/15/15 [History] Metoprolol Succinate [Toprol XL] 50 mg PO DAILY 03/25/16 [History] carBAMazepine [Epitol] 400 mg PO BEDTIME 04/26/16 [History] Tamsulosin [Flomax] 0.4 mg PO DAILY 07/31/16 [History] carBAMazepine [Epitol] 200 mg PO BID 07/31/16 [History] Citalopram [Citalopram HBr] 20 mg PO DAILY 10/27/16 [History] amLODIPine Besylate [Norvasc] 5 mg PO DAILY 11/15/16 [History] Lovastatin 20 mg PO BEDTIME 09/15/17 [History] Warfarin [Coumadin] 15 mg PO ASDIRECTED 09/15/17 [History] Fluticasone/Vilanterol [Breo Ellipta 100-25 MCG Inhalation Kit] 1 each INH DAILY 12/16/17 [History] Cefuroxime Axetil [Cefuroxime] 500 mg PO BID 12/22/17 [History] Past Medical History HEENT History: Reports: Hard of Hearing, Impaired Vision, Other (See Below) Other HEENT History: bleeding under arm Cardiovascular History: Reports: Blood Clots/VTE/DVT, Bypass, CAD, High Cholesterol, Hypertension, [place] Other Cardiovascular History: nov dx blood clot in l leg. Blood clot l arm. mar Still there. 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 Musculoskeletal Surgical History: Reports: Knee Replacement Other Musculoskeletal Surgeries/Procedures:: Back surgery, something with discs Social & Family History - Family History Family Medical History: Noncontributory HEENT: Reports: None Cardiac: Reports: Aneurysm, CAD - Tobacco Use Smoking Status *Q: Former Smoker Years of Tobacco use: 50 Packs/Tins Daily: 1.1 Used Tobacco, but Quit: Yes Month Tobacco Last Used: years Second Hand Smoke Exposure: No - Caffeine Use Caffeine Use: Reports: Coffee Caffeine Use Comment: 2 cups a day - Alcohol Use Days Per Week of Alcohol Use: 1 Number of Drinks Per Day: 1 Total Drinks Per Week: 1 - Recreational Drug Use Recreational Drug Use: No - Living Situation & Occupation Living situation: Reports: Occupation: Retired ED ROS GENERAL - Review of Systems Review Of Systems: See Below Constitutional: Reports: Weakness (chronic) HEENT: Reports: No Symptoms, Other (tiny amt of dried blood L side of mouth. No clear source noted.) Respiratory: Reports: No Symptoms Cardiovascular: Reports: No Symptoms GI/Abdominal: Reports: No Symptoms : Reports: No Symptoms Musculoskeletal: Reports: No Symptoms Skin: Reports: Wound (L forearm laceration) Neurological: Reports: Confusion (progressive, chronic), Difficulty Walking ( chronic), Weakness (generalized, chronic) Psychiatric: Reports: No Symptoms ED EXAM, GENERAL - Physical Exam Exam: See Below Exam Limited By: No Limitations General Appearance: Alert, WD/WN, No Apparent Distress Eye Exam: Bilateral Eye: Normal Inspection Ears: Normal External Exam, Normal Canal, Hearing Grossly Normal, Normal TMs Ear Exam: Bilateral Ear: Auricle Normal, Canal Normal, TM normal Nose: Normal Inspection, Normal Mucosa, No Blood Throat/Mouth: Normal Inspection, Normal Lips, Normal Teeth, Normal Oropharynx, Normal Voice, No Airway Compromise Head: Atraumatic, Normocephalic Neck: Normal Inspection, Supple, Non-Tender Respiratory/Chest: No Respiratory Distress, Lungs Clear, Normal Breath Sounds, No Accessory Muscle Use Cardiovascular: Regular Rate, Rhythm, No Edema GI/Abdominal: Normal Bowel Sounds, Soft, Non-Tender, No Distention Back Exam: Normal Inspection. No: CVA Tenderness (R), CVA Tenderness (L) Extremities: Normal Inspection, Normal Range of Motion, Non-Tender, No Pedal Edema Neurological: Alert, Oriented, CN II-XII Intact, Normal Cognition, No Motor/ Sensory Deficits, Confused (mild) Psychiatric: Normal Affect, Normal Mood Skin Exam: Warm, Dry, Intact, Normal Color, No Rash Lymphatic: No Adenopathy Course - Vital Signs Text/Narrative:: Dr. Watson called @ 1800h Last Recorded V/S: Last Vital Signs Temp 35.9 C 12/22/17 17:05 Pulse 77 12/22/17 17:05 Resp 15 12/22/17 17:05 BP 169/107 H 12/22/17 17:05 Pulse Ox 97 12/22/17 17:05 - Orders/Labs/Meds Orders: Active Orders 24 hr Category Date Time Status BASIC METABOLIC PANEL,BMP [CHEM] Stat Lab 12/22/17 17:19 Received CARBAMAZEPINE [REF] Routine Lab 12/22/17 17:19 Received TROPONIN I [CHEM] Stat Lab 12/22/17 17:19 Received UA W/MICROSCOPIC [URIN] Stat Lab 12/22/17 17:16 Ordered Labs: Laboratory Tests 12/22/17 12/22/17 Range/Units 17:19 17:19 WBC 8.8 (4.5-11.0) K/uL RBC 4.27 L (4.30-5.90) M/uL Hgb 13.2 (12.0-15.0) g/dL Hct 38.3 L (40.0-54.0) % MCV 90 (80-98) fL MCH 31 (27-31) pg MCHC 35 (32-36) % Plt Count 232 (150-400) K/uL PT 43.1 H (9.5-12.0) sec INR 3.81 H (0.80-1.20) Departure - Departure Time of Disposition: 18:10 Disposition: Refer to Observation Condition: Fair Clinical Impression: Fall in elderly patient Dementia Qualifiers: Dementia type: unspecified type Dementia behavioral disturbance: without behavioral disturbance Qualified Code(s): F03.90 - Unspecified dementia without behavioral disturbance - Discharge Information Referrals: PCP,None [Primary Care Provider] - Forms: ED Department Discharge - My Orders Last 24 Hours: My Active Orders 12/22/17 17:16 UA W/MICROSCOPIC [URIN] Stat 12/22/17 17:19 BASIC METABOLIC PANEL,BMP [CHEM] Stat CARBAMAZEPINE [REF] Routine TROPONIN I [CHEM] Stat - Assessment/Plan Last 24 Hours: My Active Orders 12/22/17 17:16 UA W/MICROSCOPIC [URIN] Stat 12/22/17 17:19 BASIC METABOLIC PANEL,BMP [CHEM] Stat CARBAMAZEPINE [REF] Routine TROPONIN I [CHEM] Stat
[2017-12-22] MEDS ORDERED: Bacitracin Oint 1 GM U/D Packet TOP ONE (18:15)
[2017-12-22] MEDS ORDERED: Azithromycin 500 MG in Sodium Chloride 0.9% 250 ML IV SCH (20:00)
[2017-12-22] MEDS ORDERED: cefTRIAXone 1 GM in Sodium Chloride 0.9% 50 ML IV SCH (20:00)
[2017-12-22] MEDS ORDERED: Acetaminophen 325 MG Tab PO PRN ×2 (20:11→20:49)
[2017-12-22] MEDS ORDERED: Ondansetron 4 MG/2 ML SDV IV PRN (20:11)
[2017-12-22] MEDS ORDERED: Morphine 2 MG/ML Syringe IVPUSH PRN (20:11)
[2017-12-22] MEDS ORDERED: oxyCODONE 5 MG Tab PO PRN (20:11)
[2017-12-22] MEDS ORDERED: Albuterol 0.083% 2.5 MG/3 ML Neb Soln NEB PRN (20:11)
[2017-12-22] MEDS ORDERED: LORazepam 2 MG/ML MDV IV PRN (20:11)
[2017-12-22] MEDS ORDERED: Ondansetron 4 MG Tab.DIS PO PRN (20:11)
--- NOTE | 2017-12-22 20:22 | PCM.HP ---
H&P History of Present Illness - General Admit Problem/Dx: Admission Diagnosis/Problem Admission Diagnosis/Problem Dementia Source of Information: Patient, Family History Limitations: Reports: Altered Mental Status (Alzheimer's dementia) - History of Present Illness Onset of Symptoms: Reports: Gradual Duration of Symptoms: Reports: Week(s):, Getting Worse Location: Reports: Generalized (Weakness) Severity: Mild Improves with: Reports: Rest Worsens with: Reports: None Context: Reports: Other (Fall at home) Associated Symptoms: Reports: Shortness of Breath (history of COPD, CHF, changes in Lasix decreased, now w/sob, weakness, increased cough), Weakness Lower Back Pain Score (Numeric/FACES): 6 - Related Data Allergies/Adverse Reactions: Allergies Allergy/AdvReac Type Severity Reaction Status Date / Time triamcinolone Allergy Itching Verified 12/16/17 10:06 triamcinolone acetonide Allergy Rash Verified 12/16/17 10:06 [From Kenalog] Home Medications: Home Meds Multivitamins/Minerals [Vitamins and Minerals] 1 tab PO DAILY tablet 04/02/15 [ Rx] Furosemide [Lasix] 40 mg PO DAILY 05/30/15 [History] Potassium Chloride [Klor-Con M20] 20 meq PO BID 05/30/15 [History] Cholecalciferol (Vitamin D3) [Vitamin D3] 1,000 units PO DAILY 07/17/15 [History ] Acetaminophen [Tylenol] 650 mg PO BID PRN 07/25/15 [History] Ascorbic Acid [Vitamin C] 500 mg PO DAILY 07/25/15 [History] [place]-3 Fatty Acids [Fish Oil] 1,000 mg PO DAILY 07/25/15 [History] Vitamin E 400 units PO DAILY 07/25/15 [History] Ranitidine [Zantac] 150 mg PO BID 09/15/15 [History] Metoprolol Succinate [Toprol XL] 50 mg PO DAILY 03/25/16 [History] carBAMazepine [Epitol] 400 mg PO BEDTIME 04/26/16 [History] Tamsulosin [Flomax] 0.4 mg PO DAILY 07/31/16 [History] carBAMazepine [Epitol] 200 mg PO BID 07/31/16 [History] Citalopram [Citalopram HBr] 20 mg PO DAILY 10/27/16 [History] amLODIPine Besylate [Norvasc] 5 mg PO DAILY 11/15/16 [History] Lovastatin 20 mg PO BEDTIME 09/15/17 [History] Warfarin [Coumadin] 15 mg PO ASDIRECTED 09/15/17 [History] Fluticasone/Vilanterol [Breo Ellipta 100-25 MCG Inhalation Kit] 1 each INH DAILY 12/16/17 [History] Cefuroxime Axetil [Cefuroxime] 500 mg PO BID 12/22/17 [History] Past Medical History HEENT History: Reports: Hard of Hearing, Impaired Vision, Other (See Below) Other HEENT History: bleeding under arm Cardiovascular History: Reports: Blood Clots/VTE/DVT, Bypass, CAD, High Cholesterol, Hypertension, [place] Other Cardiovascular History: aug dx blood clot in l leg. Blood clot l arm. mar Still there. 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 Musculoskeletal Surgical History: Reports: Knee Replacement Other Musculoskeletal Surgeries/Procedures:: Back surgery, something with discs Social & Family History - Family History Family Medical History: Noncontributory HEENT: Reports: None Cardiac: Reports: Aneurysm, CAD - Tobacco Use Smoking Status *Q: Former Smoker Years of Tobacco use: 50 Packs/Tins Daily: 1.1 Used Tobacco, but Quit: Yes Month Tobacco Last Used: years Second Hand Smoke Exposure: No - Caffeine Use Caffeine Use: Reports: Coffee Caffeine Use Comment: 2 cups a day - Alcohol Use Days Per Week of Alcohol Use: 1 Number of Drinks Per Day: 1 Total Drinks Per Week: 1 - Recreational Drug Use Recreational Drug Use: No - Living Situation & Occupation Living situation: Reports: (lives with Tami of 28 years. each have 2 adult children. live in [place], [place].) Occupation: Retired H&P Review of Systems - Review of Systems: Review Of Systems: See Below General: Reports: Weakness (increased weakness for the past month) HEENT: Reports: Rhinitis, Sinus Congestion (current treatment for sinus infection) Pulmonary: Reports: Shortness of Breath (hx of COPD, changes in Lasix dose, worsen symptoms for the past month.), Wheezing, Sputum Cardiovascular: Reports: Dyspnea on Exertion, Edema, Lightheadedness ( intermittent), Blood Pressure Problem Gastrointestinal: Reports: Nausea (intermittent, none today) Genitourinary: Reports: Other (decreased urine output) Musculoskeletal: Reports: Back Pain (surgery 2 years ago.), Leg Pain (Bilateral AFOs secondary to foot drop and decreased muscle strength) Skin: Reports: Other (Skin tears noted to left forearm) Psychiatric: Reports: Other (Diagnosed with Alzheimer's dementia 1 year) Neurological: Reports: Pre-Existing Deficit, Difficulty Walking (Walks with use of a walker assist 1), Weakness (Fall today at home) Hematologic/Lymphatic: Reports: Other (Anticoagulation therapy; Coumadin dose 10 -15 mg by mouth daily) Immunologic: Reports: No Symptoms Exam - Exam Exam: See Below - Vital Signs Vital Signs: Last Vital Signs Temp 35.9 C 12/22/17 17:05 Pulse 77 12/22/17 17:05 Resp 15 12/22/17 17:05 BP 169/107 H 12/22/17 17:05 Pulse Ox 97 12/22/17 17:05 Weight: 99.79 kg - Exam General: Alert, Cooperative, Other (Neat and well-groomed pleasant elderly gentleman.) HEENT: PERRLA, Hearing Intact (Does have excessive earwax noted bilateral unable to visualize tympanic membranes), Nares Patent, Normal Nasal Septum, Posterior Pharynx Clear (Full dentures noted), Pupils Equal, Pupils Reactive, Glasses, Other (Right eye with subconjunctival hemorrhage to the right side.) Neck: Supple, Trachea Midline, 2 Lungs: Normal Respiratory Effort, Decreased Breath Sounds, Crackles, Rales Cardiovascular: Normal S1, Normal S2 GI/Abdominal Exam: Normal Bowel Sounds, Soft, Non-Tender, No Distention, No Abnormal Bruit, No Mass (Male) Exam: Rash (Fungal rash noted to groin folds and abdominal crease), Other (Uncircumcised male) Rectal (Males) Exam: Deferred Back Exam: Normal Inspection, Full Range of Motion Extremities: Non-Tender, Pedal Edema (+1 edema noted), Other (Bilateral AFOs) Skin: Other (Skin skin tear noted to left forearm) Neurological: Reflexes Equal Bilateral, Strength Equal Bilateral, Normal Speech , Normal Tone Neuro Extensive - Mental Status: Alert, Normal Mood/Affect Neuro Extensive - Motor, Sensory, Reflexes: Motor/Sensory Deficits Psychiatric: Alert, Normal Affect, Normal Mood - Patient Data Result Diagrams: 12/22/17 17:19 12/22/17 17:19 *Q Meaningful Use (ADM) - VTE *Q VTE Criteria *Q: - Stroke *Q Stroke Criteria *Q: - AMI *Q AMI Criteria *Q: - Problem List (1) Fall in elderly patient SNOMED Code(s): 273959266 ICD Code: R29.6 - REPEATED FALLS Status: Acute Current Visit: Yes (2) Dementia SNOMED Code(s): 87513614 ICD Code: F03.90 - UNSPECIFIED DEMENTIA WITHOUT BEHAVIORAL DISTURBANCE Status: Chronic Current Visit: Yes Qualifiers: Dementia type: Alzheimer's disease Dementia behavioral disturbance: without behavioral disturbance (3) Anticoagulated on Coumadin SNOMED Code(s): 59870126 ICD Code: Z51.81 - ENCOUNTER FOR THERAPEUTIC DRUG LEVEL MONITORING; Z79.01 - KENO WRITER (CURRENT) USE OF ANTICOAGULANTS Status: Chronic Priority: Medium Current Visit: No (4) COPD (chronic obstructive pulmonary disease) SNOMED Code(s): 16913484 ICD Code: J44.9 - CHRONIC OBSTRUCTIVE PULMONARY DISEASE, UNSPECIFIED Status : Chronic Current Visit: No Qualifiers: Emphysema type: unspecified (5) Sleep apnea in adult SNOMED Code(s): 34985748 ICD Code: G47.33 - OBSTRUCTIVE SLEEP APNEA (ADULT) (PEDIATRIC) Status: Chronic Priority: Medium Current Visit: No (6) CHF, Congestive heart failure SNOMED Code(s): 75265781 ICD Code: I50.9 - HEART FAILURE, UNSPECIFIED Status: Chronic Priority: Medium Current Visit: Yes Problem List Initiated/Reviewed/Updated: Yes Orders Last 24hrs: Active Orders 24 hr Category Date Time Status Patient Status [ADT] Routine ADT 12/22/17 20:11 Active Intake and Output [RC] QSHIFT Care 12/22/17 20:11 Active Notify Provider Vital Signs [RC] ASDIRECTED Care 12/22/17 20:11 Active Oxygen Therapy [RC] PRN Care 12/22/17 20:11 Active Pulse Oximetry [RC] PRN Care 12/22/17 20:11 Active RT Aerosol Therapy [RC] ASDIRECTED Care 12/22/17 20:11 Active Up With Assistance [RC] ASDIRECTED Care 12/22/17 20:11 Active VTE/DVT Education [RC] Per Unit Routine Care 12/22/17 20:11 Active Vital Signs [RC] Q4H Care 12/22/17 20:11 Active Consult to Case Management [CONS] Routine Cons 12/22/17 20:11 Active OT Evaluation and Treatment [CONS] Routine Cons 12/22/17 20:11 Active PT Evaluation and Treatment [CONS] Routine Cons 12/22/17 20:11 Active Chest 1V Frontal [CR] Urgent Exams 12/22/17 19:10 Taken BASIC METABOLIC PANEL,BMP [CHEM] AM Lab 12/23/17 05:11 Ordered CBC WITH AUTO DIFF [HEME] AM Lab 12/23/17 05:11 Ordered Acetaminophen [Tylenol] Med 12/22/17 20:11 Ordered 650 mg PO BID PRN Acetaminophen [Tylenol] Med 12/22/17 20:11 Ordered 650 mg PO Q4H PRN Albuterol [Proventil Neb Soln] Med 12/22/17 20:11 Ordered 2.5 mg NEB Q4H PRN Albuterol/Ipratropium [DuoNeb 3.0-0.5 MG/3 ML] Med 12/22/17 22:00 Ordered 3 ml NEB QID Ascorbic Acid [Vitamin C] Med 12/23/17 09:00 Ordered 500 mg PO DAILY Azithromycin [Zithromax] 500 mg Med 12/22/17 20:11 Ordered Sodium Chloride 0.9% [Normal Saline] 250 ml IV Q24H Cholecalciferol (Vitamin D3) [Vitamin D3] Med 12/23/17 09:00 Ordered 1,000 units PO DAILY Citalopram [Citalopram HBr] Med 12/23/17 09:00 Ordered 20 mg PO DAILY Fluticasone/Vilanterol [Breo Ellipta 100-25 MCG Med 12/23/17 09:00 Ordered Inhalation Kit] 1 each INH DAILY Furosemide [Lasix] Med 12/23/17 09:00 Ordered 40 mg PO DAILY LORazepam [Ativan] Med 12/22/17 20:11 Ordered 1 mg IV Q6H PRN Lovastatin [Lovastatin] Med 12/22/17 21:00 Ordered 20 mg PO BEDTIME Melatonin Med 12/22/17 21:00 Ordered 9 mg PO BEDTIME Metoprolol Succinate [Toprol XL] Med 12/23/17 09:00 Ordered 50 mg PO DAILY Morphine Med 12/22/17 20:11 Ordered 2 mg IVPUSH Q2H PRN Multivitamins/Minerals [Vitamins and Minerals] Med 12/23/17 09:00 Ordered 1 tab PO DAILY [place]-3 Fatty Acids [Fish Oil] Med 12/23/17 09:00 Ordered 1,000 mg PO DAILY Ondansetron [Zofran ODT] Med 12/22/17 20:11 Ordered 4 mg PO Q6H PRN Ondansetron [Zofran] Med 12/22/17 20:11 Ordered 4 mg IV Q4H PRN Potassium Chloride [Klor-Con M20] Med 12/22/17 21:00 Ordered 20 meq PO BID Ranitidine [Zantac] Med 12/22/17 21:00 Ordered 150 mg PO BID Tamsulosin [Flomax] Med 12/23/17 09:00 Ordered 0.4 mg PO DAILY Vitamin E [Vitamin E] Med 12/23/17 09:00 Ordered 400 units PO DAILY Warfarin [Coumadin] Med 12/23/17 09:00 Ordered See Dose Instructions PO DAILY amLODIPine Besylate [Norvasc] Med 12/23/17 09:00 Ordered 5 mg PO DAILY carBAMazepine [Epitol] Med 12/22/17 21:00 Ordered 200 mg PO BID carBAMazepine [Epitol] Med 12/22/17 21:00 Ordered 400 mg PO BEDTIME cefTRIAXone [Rocephin] 1 gm Med 12/22/17 20:11 Ordered Sodium Chloride 0.9% [Normal Saline] 50 ml IV Q24H oxyCODONE Med 12/22/17 20:11 Ordered 5 mg PO Q4H PRN Resuscitation Status Routine Resus Stat 12/22/17 19:11 Ordered Medication Orders Acetaminophen (Tylenol) 650 mg PO Q4H PRN PRN Reason: Pain (Mild 1-3)/fever Albuterol (Proventil Neb Soln) 2.5 mg NEB Q4H PRN PRN Reason: Shortness Of Breath/wheezing Albuterol/Ipratropium (Duoneb 3.0-0.5 Mg/3 Ml) 3 ml NEB QID TANA Sodium Chloride (Normal Saline) 1,000 mls @ 75 mls/hr IV ASDIRECTED TANA Azithromycin 500 mg/ Sodium (Chloride) 250 mls @ 250 mls/hr IV Q24H TANA Ceftriaxone Sodium 1 gm/ (Sodium Chloride) 50 mls @ 100 mls/hr IV Q24H TANA Lorazepam (Ativan) 1 mg IV Q6H PRN PRN Reason: Nausea/Vomiting Melatonin (Melatonin) 9 mg PO BEDTIME TANA Morphine Sulfate (Morphine) 2 mg IVPUSH Q2H PRN PRN Reason: Pain (severe 7-10) Non-Formulary Medication (Acetaminophen [Tylenol]) 650 mg PO BID PRN PRN Reason: Pain Non-Formulary Medication (Amlodipine Besylate [Norvasc]) 5 mg PO DAILY TANA Non-Formulary Medication (Ascorbic Acid [Vitamin C]) 500 mg PO DAILY TANA Non-Formulary Medication (Carbamazepine [Epitol]) 200 mg PO BID ATNA Non-Formulary Medication (Carbamazepine [Epitol]) 400 mg PO BEDTIME TANA Non-Formulary Medication (Cholecalciferol (Vitamin D3) [Vitamin D3]) 1,000 units PO DAILY TANA Non-Formulary Medication (Citalopram [Citalopram Hbr]) 20 mg PO DAILY TANA Non-Formulary Medication (Fluticasone/Vilanterol [Breo Ellipta 100-25 Mcg Inhalation Kit]) 1 each INH DAILY TANA Non-Formulary Medication (Furosemide [Lasix]) 40 mg PO DAILY TANA Non-Formulary Medication (Lovastatin [Lovastatin]) 20 mg PO BEDTIME TANA Non-Formulary Medication (Metoprolol Succinate [Toprol Xl]) 50 mg PO DAILY TANA Non-Formulary Medication (Multivitamins/Minerals [Vitamins And Minerals]) 1 tab PO DAILY TANA Non-Formulary Medication ([place]-3 Fatty Acids [Fish Oil]) 1,000 mg PO DAILY TANA Non-Formulary Medication (Potassium Chloride [Klor-Con M20]) 20 meq PO BID TANA Non-Formulary Medication (Ranitidine [Zantac]) 150 mg PO BID TANA Non-Formulary Medication (Tamsulosin [Flomax]) 0.4 mg PO DAILY TANA Non-Formulary Medication (Vitamin E [Vitamin E]) 400 units PO DAILY TANA Ondansetron HCl (Zofran Odt) 4 mg PO Q6H PRN PRN Reason: Nausea able to take PO Ondansetron HCl (Zofran) 4 mg IV Q4H PRN PRN Reason: Nausea/Vomiting Oxycodone HCl (Oxycodone) 5 mg PO Q4H PRN PRN Reason: Pain (moderate 4-6) Warfarin Sodium (Coumadin) 0 mg PO DAILY [facility] Assessment/Plan Comment:: ASSESSMENT / PLAN -82 yo male presents via EMS after a fall at home with a minor L arm laceration. He normally walks with a walker and his 's assistance. She had to leave the home for a few minutes and when she returned he had tried to get up without assistance and fell. She found him still on the floor. EMS noted some BP elevation during transport. He has known dementia and the says he has been declining mentally fairly steadily, with an almost daily change per her report. History of COPD, CHF, reports Lasix 40 mg decreased to 20 mg ,one month ago since then patient has increased cough, wheezing, increased sputum production. He has shortness of breath and weakness with ambulation. Will admit observation for dementia/weakness/COPD/ CHF Plan -Admit observation to [address] [place] [address] for further monitoring Dementia/Alzheimer's disease, repeated falls -Melatonin 9 mg by mouth daily at bedtime -environmental field services technician consult -Consult to physical therapy -Consult to OT -Discuss fpc placement versus acute rehabilitation COPD, CHF -IV fluids normal saline at 75 ml/hr gentle rehydration; -Given Lasix 40 mg in ER from patient's supply -increase Lasix to 40 mg by mouth daily -Order usual home medications -Duo nebs ordered every 6 hours -Albuterol nebs every 4 hours when necessary -IV Rocephin 1 g every 24 hours -IV Zithromax 500 mg every 24 hours -A.m. labs CBC, BMP, INR, PT Anticoagulation therapy Coumadin INR and PT T ordered in a.m. -Dose according to lab results Sleep apnea and adult -Use of home BiPAP machine at night -Oxygen per nasal cannula when necessary Maintenance issues -Orders home meds: ordered and will use patient's supply -Nutrition: Regular diet -Osorio catheter not indicated at this time -DVT: Coumadin -GI Prophalaxis; Protonix 40mg daily CODE STATUS:DNR/DNI Admission status: Admit to Observation -I expect this patient to stay less than 24 hours, not to exceed 96 hours for evaluation and management of this problem. Disposition: Correction placement or Acute rehab. Primary care provider: Hospitalist: Dr. Watson
[2017-12-22] MEDS: Sodium Chloride 0.9% 1,000 ML IV SCH (21:40)
[2017-12-22] MEDS: Potassium Chloride 20 MEQ Tab.ER**OWN MED PO SCH (22:01)
[2017-12-22] MEDS: CARBAMAZEPINE 200 MG PO SCH (22:02)
[2017-12-22] MEDS: Melatonin 3 MG Tab PO SCH (22:02)
[2017-12-22] MEDS: LOVASTATIN 20 MG PO SCH (22:02)
[2017-12-22] MEDS: Albuterol/Ipratropium 3.0-0.5 MG/3 ML Neb Soln NEB SCH (22:03)
[2017-12-23] MEDS: Albuterol/Ipratropium 3.0-0.5 MG/3 ML Neb Soln NEB SCH ×4 (07:42→21:09)
--- NOTE | 2017-12-23 08:43 | CR ---
CHEST: AP portable CLINICAL HISTORY:Shortness of breath COMPARISON:11/07/2017 FINDINGS: Patient has had previous sternotomy. Heart size is upper limits of normal. There are ather osclerotic changes in the aorta. The pulmonary vasculature is normal. There are some patchy density i n the right lower lobe. The this is similar to 11/07/2017. The prior studies show no scarring or fibro sis in this area. IMPRESSION: Borderline cardiomegaly Patchy right lower lobe density is also seen in October. The this may represent recurrent pneumonia o r atelectasis
[2017-12-23] MEDS ORDERED: Warfarin 5 MG Tab PO SCH (09:00)
[2017-12-23] MEDS ORDERED: Non-Formulary Medication 1 Each (Fluticasone/Vilanterol [Breo Ellipta 100-25 Mcg Inhalatio INH SCH (09:00)
[2017-12-23] MEDS: Furosemide 40 MG Tab (PTOM) PO SCH (09:25)
[2017-12-23] MEDS: Tamsulosin 0.4 MG Cap.ER (PTOM) PO SCH (09:26)
[2017-12-23] MEDS: Potassium Chloride 20 MEQ Tab.ER**OWN MED PO SCH ×2 (09:27→21:14)
[2017-12-23] MEDS: amLODIPine 5 MG Tab (PTOM) PO SCH (09:28)
[2017-12-23] MEDS: CITALOPRAM 20 MG PO SCH (09:29)
[2017-12-23] MEDS: Fish Oil/Omega-3 Fatty Acids 1 Gm Cap PO SCH (09:30)
[2017-12-23] MEDS: Cholecalciferol (Vitamin D3) 1,000 Unit Tab PO SCH (09:31)
[2017-12-23] MEDS: Ascorbic Acid 500 MG Tab PO SCH (09:31)
[2017-12-23] MEDS: Multivitamins with Iron/Calcium/Folic Acid/Minerals Tab PO SCH (09:31)
[2017-12-23] MEDS: CARBAMAZEPINE 200 MG PO SCH ×3 (09:33→21:15)
[2017-12-23] MEDS: Metoprolol Succinate 50 MG Tab.ER (PTOM) PO SCH (09:34)
[2017-12-23] MEDS: BREO ELLIPTA INH SCH (09:36)
[2017-12-23] MEDS: Sodium Chloride 0.9% 1,000 ML IV SCH (12:31)
[2017-12-23] MEDS: Vitamin E (dl-alpha-tocopherol acetate) 400 Unit Cap PO SCH (12:32)
[2017-12-23] MEDS: POLYETHYLENE GLYCOL PO SCH (12:33)
[2017-12-23] MEDS: CEFUROXIME 500 MG PO SCH ×2 (13:22→21:14)
--- NOTE | 2017-12-23 14:59 | PCM.PN ---
- General Info Date of Service: 12/23/17 Subjective Update: This patient is an 82-year-old gentleman who was admitted to observation status through the emergency department last night with increased weakness and confusion. He has a known history of dementia, reports that he is been spending more time in bed and is unsteady with ambulation. He was evaluated the clinic yesterday and found had have evidence of a sinus infection. Evaluation the emergency department showed no acute abnormalities. He reports that he does get lightheaded with standing and has noted that he gets very short of breath with activity. Saturations monitored here in the hospital of shown good oxygenation throughout this portion of his hospital stay. Functional Status: Reports: Tolerating Diet, Urinating - Review of Systems General: Reports: Weakness. Denies: Fever, Chills Pulmonary: Reports: Shortness of Breath. Denies: Pleuritic Chest Pain, Cough, Sputum, Hemoptysis, Wheezing Cardiovascular: Reports: Dyspnea on Exertion. Denies: Chest Pain, Palpitations , Orthopnea, PND, Edema, Lightheadedness Gastrointestinal: Reports: No Symptoms - Patient Data Vitals - Most Recent: Last Vital Signs Temp 97.4 F 12/23/17 10:48 Pulse 71 12/23/17 11:41 Resp 18 12/23/17 10:48 BP 128/83 12/23/17 10:48 Pulse Ox 97 12/23/17 14:43 Orthostatic Blood Pressure [ 124/66 Standing] Orthostatic Blood Pressure [ 127/68 Sitting] Orthostatic Blood Pressure [ 122/68 Supine] Weight - Most Recent: 217 lb 15.995 oz I&O - Last 24 Hours: Intake & Output 12/22/17 12/23/17 12/23/17 22:59 06:59 14:59 Intake Total 600 829 830 Balance 600 829 830 Lab Results Last 24 Hours: Laboratory Results - last 24 hr 12/23/17 12/23/17 12/23/17 Range/Units 05:36 05:36 12:52 WBC 6.5 (4.5-11.0) K/uL RBC 3.68 L (4.30-5.90) M/uL Hgb 11.7 L (12.0-15.0) g/dL Hct 33.2 L (40.0-54.0) % MCV 90 (80-98) fL MCH 32 H (27-31) pg MCHC 35 (32-36) % Plt Count 200 (150-400) K/uL Neut % (Auto) 50 (36-66) % Lymph % (Auto) 10 L (24-44) % [place] % (Auto) 9 H (2-6) % Eos % (Auto) 31 H (2-4) % Baso % (Auto) 0 (0-1) % PT 42.2 H (9.5-12.0) sec INR 3.73 H (0.80-1.20) Sodium 133 L (140-148) mmol/L Potassium 4.4 (3.6-5.2) mmol/L Chloride 98 L (100-108) mmol/L Carbon Dioxide 26 (21-32) mmol/L Anion Gap 13.4 (5.0-14.0) mmol/L BUN 11 (7-18) mg/dL Creatinine 1.0 (0.8-1.3) mg/dL Est Cr Clr Drug Dosing 63.25 mL/min Estimated GFR (MDRD) > 60 (>60) Glucose 109 H (74-106) mg/dL Calcium 8.2 L (8.5-10.1) mg/dL Med Orders - Current: Current Medications Acetaminophen (Tylenol) 650 mg PO Q4H PRN PRN Reason: Pain (Mild 1-3)/fever Albuterol (Proventil Neb Soln) 2.5 mg NEB Q4H PRN PRN Reason: Shortness Of Breath/wheezing Albuterol/Ipratropium (Duoneb 3.0-0.5 Mg/3 Ml) 3 ml NEB QIDRT [facility] Last Admin: 12/23/17 11:40 Dose: 3 ml Amlodipine Besylate (Norvasc) 5 mg PO DAILY [facility] Last Admin: 12/23/17 09:28 Dose: 5 mg Ascorbic Acid (Vitamin C) 500 mg PO DAILY [facility] Last Admin: 12/23/17 09:31 Dose: 500 mg Carbamazepine (Tegretol Tab) 200 mg PO BID@0900,1500 [facility] Last Admin: 12/23/17 09:33 Dose: 200 mg Carbamazepine (Tegretol Tab) 400 mg PO BEDTIME [facility] Last Admin: 12/22/17 22:02 Dose: 400 mg Cefuroxime Axetil (Ceftin) 500 mg PO BID [facility] Last Admin: 12/23/17 13:22 Dose: 500 mg Cholecalciferol (Vitamin D3) 1,000 units PO DAILY [facility] Last Admin: 12/23/17 09:31 Dose: 1,000 units Citalopram Hydrobromide (Celexa) 20 mg PO DAILY [facility] Last Admin: 12/23/17 09:29 Dose: 20 mg Fish Oil (Fish Oil) 1 gm PO DAILY [facility] Last Admin: 12/23/17 09:30 Dose: 1 gm Furosemide (Lasix) 40 mg PO DAILY [facility] Last Admin: 12/23/17 09:25 Dose: 40 mg Lorazepam (Ativan) 1 mg IV Q6H PRN PRN Reason: Nausea/Vomiting Lovastatin (Mevacor) 20 mg PO BEDTIME [facility] Last Admin: 12/22/17 22:02 Dose: 20 mg Melatonin (Melatonin) 9 mg PO BEDTIME [facility] Last Admin: 12/22/17 22:02 Dose: 9 mg Metoprolol Succinate (Toprol Xl) 50 mg PO DAILY [facility] Last Admin: 12/23/17 09:34 Dose: 50 mg Morphine Sulfate (Morphine) 2 mg IVPUSH Q2H PRN PRN Reason: Pain (severe 7-10) Multivitamins/Minerals (Thera M Plus) 1 tab PO DAILY [facility] Last Admin: 12/23/17 09:31 Dose: 1 tab Ondansetron HCl (Zofran Odt) 4 mg PO Q6H PRN PRN Reason: Nausea able to take PO Ondansetron HCl (Zofran) 4 mg IV Q4H PRN PRN Reason: Nausea/Vomiting Oxycodone HCl (Oxycodone) 5 mg PO Q4H PRN PRN Reason: Pain (moderate 4-6) Breo Ellipta 100/25 ([facility] (Ptom)) [facility] Admin: 12/23/17 09:36 Dose: 1 each Polyethylene Glycol (Miralax) 17 gm PO DAILY [facility] Last Admin: 12/23/17 12:33 Dose: 17 gm Potassium Chloride (Klor-Con M20) 20 meq PO BID [facility] Last Admin: 12/23/17 09:27 Dose: 20 meq Ranitidine HCl (Zantac) 150 mg PO BID [facility] Last Admin: 12/23/17 09:27 Dose: 150 mg Tamsulosin HCl (Flomax) 0.4 mg PO DAILY [facility] Last Admin: 12/23/17 09:26 Dose: 0.4 mg Vitamin E (Vitamin E) 400 units PO DAILY [facility] Last Admin: 12/23/17 12:32 Dose: 400 units Warfarin Sodium (Coumadin) 0 mg PO DAILY [facility] Discontinued Medications Bacitracin (Bacitracin Oint 1 Gm) 1 dose TOP ONETIME ONE Stop: 12/22/17 18:16 Last Admin: 12/22/17 18:41 Dose: 1 dose Sodium Chloride (Normal Saline) 1,000 mls @ 75 mls/hr IV ASDIRECTED [facility] Last Admin: 12/23/17 12:31 Dose: 75 mls/hr Azithromycin 500 mg/ Sodium (Chloride) 250 mls @ 250 mls/hr IV Q24H [facility] Last Admin: 12/22/17 23:12 Dose: 250 mls/hr Ceftriaxone Sodium 1 gm/ (Sodium Chloride) 50 mls @ 100 mls/hr IV Q24H [facility] Last Admin: 12/22/17 21:57 Dose: 100 mls/hr Azithromycin 500 mg/ Sodium (Chloride) 250 mls @ 250 mls/hr IV Q24H [facility] - Exam Quality Assessment: DVT Prophylaxis General: Alert, Cooperative, No Acute Distress Lungs: Clear to Auscultation, Normal Respiratory Effort Cardiovascular: Regular Rate, Regular Rhythm, No Murmurs GI/Abdominal Exam: Soft, Non-Tender, No Organomegaly, No Distention Extremities: Non-Tender, No Pedal Edema Skin: Warm, Dry, Intact - Problem List Review Problem List Initiated/Reviewed/Updated: Yes - My Orders Last 24 Hours: My Active Orders 12/23/17 09:45 Polyethylene Glycol 3350 [MiraLAX] 17 gm PO DAILY 12/23/17 12:50 Convert IV to Saline Lock [OM.PC] Routine 12/23/17 12:51 Orthostatic Vital Signs [RC] Q6HR RT Supplemental Oxygen Titration [RESPCARE] Routine 12/23/17 13:00 Cefuroxime [Ceftin] 500 mg PO BID 12/23/17 Breakfast Cardiac Diet [Heart Healthy Diet] [DIET] 12/24/17 05:00 INR,PT,PROTHROMBIN TIME [COAG] Timed - Plan Plan:: ASSESSMENT / PLAN Dementia/Alzheimer's disease, repeated falls-his was hoping for possible detention placement, she understands that he will not have a qualifying stay for Medicare benefits because of observation status -Melatonin 9 mg by mouth daily at bedtime -conference services coordinator consult -Consult to physical therapy -Consult to OT -Home care with home physical therapy and occupational therapy Headedness and shortness of breath with activity -Orthostatic vital signs -Assess oxygen saturation with ambulation COPD, CHF -Saline lock IV -increase Lasix to 40 mg by mouth daily -Order usual home medications -Duo nebs ordered every 6 hours -Albuterol nebs every 4 hours when necessary Anticoagulation therapy Coumadin INR and PT ordered in a.m. -Dose according to lab results Sleep apnea -Use of home CPAP machine at night -Oxygen per nasal cannula when necessary Maintenance issues -Orders home meds: ordered and will use patient's supply -Nutrition: Regular diet -Osorio catheter not indicated at this time -DVT: Coumadin -GI Prophalaxis; Protonix 40mg daily CODE STATUS:DNR/DNI Admission status: Admit to Observation -I expect this patient to stay less than 24 hours, not to exceed 96 hours for evaluation and management of this problem. Disposition: Discharge to home tomorrow with home care and home physical therapy /occupational therapy Primary care provider: Hospitalist: Dr. Watson
[2017-12-23] MEDS ORDERED: Azithromycin 500 MG in Sodium Chloride 0.9% 250 ML IV SCH (21:00)
[2017-12-23] MEDS: Melatonin 3 MG Tab PO SCH (21:14)
[2017-12-23] MEDS: LOVASTATIN 20 MG PO SCH (21:15)
[2017-12-24] MEDS: Albuterol/Ipratropium 3.0-0.5 MG/3 ML Neb Soln NEB SCH ×2 (07:18→11:35)
[2017-12-24] MEDS: BREO ELLIPTA INH SCH (07:22)
[2017-12-24] MEDS: CITALOPRAM 20 MG PO SCH (08:02)
[2017-12-24] MEDS: CEFUROXIME 500 MG PO SCH (08:02)
[2017-12-24] MEDS: Tamsulosin 0.4 MG Cap.ER (PTOM) PO SCH (08:03)
[2017-12-24] MEDS: Potassium Chloride 20 MEQ Tab.ER**OWN MED PO SCH (08:03)
[2017-12-24] MEDS: Furosemide 40 MG Tab (PTOM) PO SCH (08:04)
[2017-12-24] MEDS: amLODIPine 5 MG Tab (PTOM) PO SCH (08:05)
[2017-12-24] MEDS: CARBAMAZEPINE 200 MG PO SCH (08:06)
[2017-12-24] MEDS: Metoprolol Succinate 50 MG Tab.ER (PTOM) PO SCH (08:07)
[2017-12-24] MEDS: Multivitamins with Iron/Calcium/Folic Acid/Minerals Tab PO SCH (08:07)
[2017-12-24] MEDS: Fish Oil/Omega-3 Fatty Acids 1 Gm Cap PO SCH (08:07)
[2017-12-24] MEDS: Cholecalciferol (Vitamin D3) 1,000 Unit Tab PO SCH (08:08)
[2017-12-24] MEDS: Ascorbic Acid 500 MG Tab PO SCH (08:08)
[2017-12-24] MEDS: POLYETHYLENE GLYCOL PO SCH (08:11)
[2017-12-24] MEDS: Vitamin E (dl-alpha-tocopherol acetate) 400 Unit Cap PO SCH (08:12)
[2017-12-24 11:12] VITALS: BP 146/77
--- NOTE | 2017-12-24 13:00 | PCM.DCSUM1 ---
Discharge Summary - Hospital Course Brief History: This patient is an 82-year-old gentleman who was admitted through the emergency department to observation status because of progressive weakness and confusion at home resulting in a fall on the day of admission. - Discharge Data Discharge Date: 12/24/17 Discharge Disposition: Home, Self-Care 01 Condition: Fair - Discharge Diagnosis/Problem(s) (1) Weakness SNOMED Code(s): 28669724 ICD Code: R53.1 - WEAKNESS Status: Acute Current Visit: Yes (2) Dementia SNOMED Code(s): 25004884 ICD Code: F03.90 - UNSPECIFIED DEMENTIA WITHOUT BEHAVIORAL DISTURBANCE Status: Chronic Current Visit: Yes Qualifiers: Dementia type: Alzheimer's disease Dementia behavioral disturbance: without behavioral disturbance (3) COPD (chronic obstructive pulmonary disease) SNOMED Code(s): 68447122 ICD Code: J44.9 - CHRONIC OBSTRUCTIVE PULMONARY DISEASE, UNSPECIFIED Status : Chronic Current Visit: No Qualifiers: Emphysema type: unspecified (4) Coronary artery disease involving coronary bypass graft SNOMED Code(s): 098571698, 273251205, 134583579 ICD Code: I25.810 - ATHEROSCLEROSIS OF CABG W/O ANGINA PECTORIS Status: Chronic Current Visit: No (5) Anticoagulated on Coumadin SNOMED Code(s): 32011906 ICD Code: Z51.81 - ENCOUNTER FOR THERAPEUTIC DRUG LEVEL MONITORING; Z79.01 - CONICAL MIXER (CURRENT) USE OF ANTICOAGULANTS Status: Chronic Priority: Medium Current Visit: No - Patient Summary/Data Consults: Consultations 12/22/17 20:11 Consult to Case Management [CONS] Routine Comment: Physician Instructions: Quantity: Reason for Consult: NH or acute rehab placement OT Evaluation and Treatment [CONS] Routine Please Evaluate and Treat. OT Reason for Consult: Discharge Planning This query below is only for informational purposes and is not editable. Admission Diagnosis/Problem: Dementia PT Evaluation and Treatment [CONS] Routine Please Evaluate and Treat. PT Reason for Consult: Strengthening This query below is only for informational purposes and is not editable. Admission Diagnosis/Problem: Dementia Hospital Course: Mr. Mora is an 82-year-old gentleman with multiple medical problems. He was admitted to observation status through the emergency department after he had fallen at home and was unable to get up. Family gives history that he has become more confused over the past few months and also progressively more weak. They've noted symptoms of increased shortness of breath with activity and lightheadedness when he is up and ambulatory. Evaluation in the emergency department was unremarkable there was no obvious injury related to his fall at home. He was admitted to the hospital and given IV fluids for hydration. Cardiac monitoring was performed and showed no evidence of significant cardiac dysrhythmia throughout the hospital stay. On the static vital signs were also obtained and showed no significant drop with standing. Oxygen saturations were obtained with ambulation and also showed no evidence of significant hypoxia. Amlodipine will be held at the time of discharge because of his history of lightheadedness with standing and ambulation. There is also been a recent history of increasing depression and his dose of Celexa will be increased to 40 mg daily. He was treated with melatonin because of his history of dementia, he did become more confused from baseline during the hospitalization but had no evidence of significant agitation. Home care will be arranged for him at the time of discharge with home physical therapy and occupational therapy. Activity will be as tolerated and he will resume his usual diet. Follow-up appointment will be scheduled with his primary care provider Dr. Davidson within one week. - Patient Instructions Diet: Usual Diet as Tolerated Activity: As Tolerated Other/Special Instructions: Please schedule follow-up appointment with Dr. Davidson within one week. - Discharge Plan Prescriptions/Med Rec: Albuterol [IJD: Albuterol] 2.5 mg NEB Q4H PRN #40 nebule PRN Reason: Shortness Of Breath/wheezing Citalopram Hydrobromide [Celexa] 40 mg PO DAILY #30 tablet Home Medications: Home Meds Multivitamins/Minerals [Vitamins and Minerals] 1 tab PO DAILY tablet 04/02/15 [ Rx] Furosemide [Lasix] 40 mg PO DAILY 05/30/15 [History] Potassium Chloride [Klor-Con M20] 20 meq PO BID 05/30/15 [History] Cholecalciferol (Vitamin D3) [Vitamin D3] 1,000 units PO DAILY 07/17/15 [History ] Acetaminophen [Tylenol] 650 mg PO BID PRN 07/25/15 [History] Ascorbic Acid [Vitamin C] 500 mg PO DAILY 07/25/15 [History] [place]-3 Fatty Acids [Fish Oil] 1,000 mg PO DAILY 07/25/15 [History] Vitamin E 400 units PO DAILY 07/25/15 [History] Ranitidine [Zantac] 150 mg PO BID 09/15/15 [History] Metoprolol Succinate [Toprol XL] 50 mg PO DAILY 03/25/16 [History] carBAMazepine [Epitol] 400 mg PO BEDTIME 04/26/16 [History] Tamsulosin [Flomax] 0.4 mg PO DAILY 07/31/16 [History] carBAMazepine [Epitol] 200 mg PO BID 07/31/16 [History] Lovastatin 20 mg PO BEDTIME 09/15/17 [History] Warfarin [Coumadin] 10 - 15 mg PO ASDIRECTED 09/15/17 [History] Fluticasone/Vilanterol [Breo Ellipta 100-25 MCG Inhalation Kit] 1 each INH DAILY 12/16/17 [History] Cefuroxime Axetil [Cefuroxime] 500 mg PO BID 12/22/17 [History] Polyethylene Glycol 3350 [MiraLAX] 17 gm PO DAILY 12/23/17 [History] Albuterol [IJD: Albuterol] 2.5 mg NEB Q4H PRN #40 nebule 12/24/17 [Rx] Citalopram Hydrobromide [Celexa] 40 mg PO DAILY #30 tablet 12/24/17 [Rx] Forms: ED Department Discharge Referrals: Ancelmo Davidson MD [Physician] - 12/29/17 1:30 pm - Patient Data Vitals - Most Recent: Last Vital Signs Temp 97.8 F 12/24/17 11:09 Pulse 79 12/24/17 11:09 Resp 16 12/24/17 11:09 BP 146/77 H 12/24/17 11:09 Pulse Ox 98 12/24/17 11:09 Orthostatic Blood Pressure [ 113/67 Standing] Orthostatic Blood Pressure [ 106/68 Sitting] Orthostatic Blood Pressure [ 112/60 Supine] Weight - Most Recent: 217 lb 15.995 oz I&O - Last 24 hours: Intake & Output 12/23/17 12/24/17 12/24/17 22:59 06:59 14:59 Intake Total 587 240 Balance 587 240 Lab Results - Last 24 hrs: Laboratory Results - last 24 hr 12/23/17 12/24/17 Range/Units 12:52 05:50 PT 42.2 H 28.9 H (9.5-12.0) sec INR 3.73 H 2.60 H (0.80-1.20) Med Orders - Current: Current Medications Acetaminophen (Tylenol) 650 mg PO Q4H PRN PRN Reason: Pain (Mild 1-3)/fever Albuterol (Proventil Neb Soln) 2.5 mg NEB Q4H PRN PRN Reason: Shortness Of Breath/wheezing Albuterol/Ipratropium (Duoneb 3.0-0.5 Mg/3 Ml) 3 ml NEB QIDRT [facility] Last Admin: 12/24/17 11:35 Dose: 3 ml Amlodipine Besylate (Norvasc) 5 mg PO DAILY [facility] Last Admin: 12/24/17 08:05 Dose: 5 mg Ascorbic Acid (Vitamin C) 500 mg PO DAILY [facility] Last Admin: 12/24/17 08:08 Dose: 500 mg Carbamazepine (Tegretol Tab) 200 mg PO BID@0900,1500 [facility] Last Admin: 12/24/17 08:06 Dose: 200 mg Carbamazepine (Tegretol Tab) 400 mg PO BEDTIME [facility] Last Admin: 12/23/17 21:15 Dose: 400 mg Cefuroxime Axetil (Ceftin) 500 mg PO BID [facility] Last Admin: 12/24/17 08:02 Dose: 500 mg Cholecalciferol (Vitamin D3) 1,000 units PO DAILY [facility] Last Admin: 12/24/17 08:08 Dose: 1,000 units Citalopram Hydrobromide (Celexa) 20 mg PO DAILY [facility] Last Admin: 12/24/17 08:02 Dose: 20 mg Fish Oil (Fish Oil) 1 gm PO DAILY [facility] Last Admin: 12/24/17 08:07 Dose: 1 gm Furosemide (Lasix) 40 mg PO DAILY [facility] Last Admin: 12/24/17 08:04 Dose: 40 mg Lorazepam (Ativan) 1 mg IV Q6H PRN PRN Reason: Nausea/Vomiting Lovastatin (Mevacor) 20 mg PO BEDTIME [facility] Last Admin: 12/23/17 21:15 Dose: 20 mg Melatonin (Melatonin) 9 mg PO BEDTIME [facility] Last Admin: 12/23/17 21:14 Dose: 9 mg Metoprolol Succinate (Toprol Xl) 50 mg PO DAILY [facility] Last Admin: 12/24/17 08:07 Dose: 50 mg Morphine Sulfate (Morphine) 2 mg IVPUSH Q2H PRN PRN Reason: Pain (severe 7-10) Multivitamins/Minerals (Thera M Plus) 1 tab PO DAILY [facility] Last Admin: 12/24/17 08:07 Dose: 1 tab Ondansetron HCl (Zofran Odt) 4 mg PO Q6H PRN PRN Reason: Nausea able to take PO Ondansetron HCl (Zofran) 4 mg IV Q4H PRN PRN Reason: Nausea/Vomiting Oxycodone HCl (Oxycodone) 5 mg PO Q4H PRN PRN Reason: Pain (moderate 4-6) Breo Ellipta 100/25 (Inhaler (Ptom)) 0 each INH DAILYRT [facility] Last Admin: 12/24/17 07:22 Dose: 1 each Polyethylene Glycol (Miralax) 17 gm PO DAILY [facility] Last Admin: 12/24/17 08:11 Dose: 17 gm Potassium Chloride (Klor-Con M20) 20 meq PO BID [facility] Last Admin: 12/24/17 08:03 Dose: 20 meq Ranitidine HCl (Zantac) 150 mg PO BID [facility] Last Admin: 12/24/17 08:09 Dose: 150 mg Tamsulosin HCl (Flomax) 0.4 mg PO DAILY [facility] Last Admin: 12/24/17 08:03 Dose: 0.4 mg Vitamin E (Vitamin E) 400 units PO DAILY [facility] Last Admin: 12/24/17 08:12 Dose: 400 units Warfarin Sodium (Coumadin) 0 mg PO DAILY [facility] Discontinued Medications Bacitracin (Bacitracin Oint 1 Gm) 1 dose TOP ONETIME ONE Stop: 12/22/17 18:16 Last Admin: 12/22/17 18:41 Dose: 1 dose Sodium Chloride (Normal Saline) 1,000 mls @ 75 mls/hr IV ASDIRECTED [facility] Last Admin: 12/23/17 12:31 Dose: 75 mls/hr Azithromycin 500 mg/ Sodium (Chloride) 250 mls @ 250 mls/hr IV Q24H [facility] Last Admin: 12/22/17 23:12 Dose: 250 mls/hr Ceftriaxone Sodium 1 gm/ (Sodium Chloride) 50 mls @ 100 mls/hr IV Q24H [facility] Last Admin: 12/22/17 21:57 Dose: 100 mls/hr Azithromycin 500 mg/ Sodium (Chloride) 250 mls @ 250 mls/hr IV Q24H [facility] *Q Meaningful Use (DIS) - VTE *Q VTE Criteria *Q: - Stroke *Q Stroke Criteria *Q: - AMI *Q AMI Criteria *Q:
== END 2017-12-24 13:57 | disposition home or self-care (01) ==
LOC: JP.ED 15:57 → JP.MS 18:41
PROVIDERS: ADMIT Hospitalist; ATTEND Hospitalist
DX: G30.9 Alzheimer's disease, unspecified (principal); F02.80 Dementia in other diseases classified elsewhere, unspecified severity, without behavioral disturbance, psychotic disturbance, mood disturbance, and anxiety; J44.9 Chronic obstructive pulmonary disease, unspecified; I25.810 Atherosclerosis of coronary artery bypass graft(s) without angina pectoris; E78.00 Pure hypercholesterolemia, unspecified; I25.2 Old myocardial infarction; F32.9 Major depressive disorder, single episode, unspecified; R29.6 Repeated falls; G47.33 Obstructive sleep apnea (adult) (pediatric); I11.0 Hypertensive heart disease with heart failure; I50.9 Heart failure, unspecified; S41.112A Laceration without foreign body of left upper arm, initial encounter; W19.XXXA Unspecified fall, initial encounter; Z66 Do not resuscitate; Z79.01 Long term (current) use of anticoagulants; Z79.899 Other long term (current) drug therapy; Z88.8 Allergy status to other drugs, medicaments and biological substances; Z86.718 Personal history of other venous thrombosis and embolism; Z90.89 Acquired absence of other organs; Z95.1 Presence of aortocoronary bypass graft; Z90.49 Acquired absence of other specified parts of digestive tract; Z87.891 Personal history of nicotine dependence
CPT/HCPCS: 36415; 71045; 80048; 80156; 81001; 84484; 85025; 85027; 85610; 94640; 97116; 97162; 97530; 99285; A9270; J0456; J0696; J7040; J7050; J7620; 99284

== ENCOUNTER 2018-01-02 14:19 | Inpatient (IN) | payer MEDICARE, BC ==
--- NOTE | 2018-01-02 14:52 | EDM.PDOC ---
ED HPI GENERAL MEDICAL PROBLEM - General Chief Complaint: Neurological Problem Stated Complaint: NO FEELINGS IN LEG Time Seen by Provider: 01/02/18 14:35 Source of Information: Reports: Patient, EMS, Family, Old Records, RN History Limitations: Reports: No Limitations - History of Present Illness INITIAL COMMENTS - FREE TEXT/NARRATIVE: 82 yo male with known progressive dementia was recently admitted for an elderly fall without injuries at home. had been struggling to take care of him at home. When he remained stable during that admission and no [facility] beds were immediately available she elected to take him home while waiting for a bed to become available. Since then she has been struggling with his progressive bilateral leg weakness. Transfers are getting very difficult. Had had chronic numbness in both legs below the knees. More recently they became aware that this numbness now also included the thighs. Here again from his home via EMS. BP was unusually high at home this morning, better now. 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 Denies: Fever/Chills, Nausea/Vomiting, Rash, Shortness of Breath Treatments PERITONEAL DIALYSIS REGISTERED NURSE: Reports: Other (see below) (Recent hospitalization) - Related Data Allergies Allergy/AdvReac Type Severity Reaction Status Date / Time triamcinolone Allergy Itching Verified 12/16/17 10:06 triamcinolone acetonide Allergy Rash Verified 12/16/17 10:06 [From Kenalog] Home Meds: Home Meds Multivitamins/Minerals [Vitamins and Minerals] 1 tab PO DAILY tablet 04/02/15 [ Rx] Furosemide [Lasix] 40 mg PO DAILY 05/30/15 [History] Potassium Chloride [Klor-Con M20] 20 meq PO BID 05/30/15 [History] Cholecalciferol (Vitamin D3) [Vitamin D3] 1,000 units PO DAILY 07/17/15 [History ] Acetaminophen [Tylenol] 650 mg PO BID PRN 07/25/15 [History] Ascorbic Acid [Vitamin C] 500 mg PO DAILY 07/25/15 [History] [place]-3 Fatty Acids [Fish Oil] 1,000 mg PO DAILY 07/25/15 [History] Vitamin E 400 units PO DAILY 07/25/15 [History] Ranitidine [Zantac] 150 mg PO BID 09/15/15 [History] Metoprolol Succinate [Toprol XL] 50 mg PO DAILY 03/25/16 [History] carBAMazepine [Epitol] 400 mg PO BEDTIME 04/26/16 [History] Tamsulosin [Flomax] 0.4 mg PO DAILY 07/31/16 [History] carBAMazepine [Epitol] 200 mg PO BID 07/31/16 [History] Lovastatin 20 mg PO BEDTIME 09/15/17 [History] Warfarin [Coumadin] 10 - 15 mg PO ASDIRECTED 09/15/17 [History] Fluticasone/Vilanterol [Breo Ellipta 100-25 MCG Inhalation Kit] 1 each INH DAILY 12/16/17 [History] Cefuroxime Axetil [Cefuroxime] 500 mg PO BID 12/22/17 [History] Polyethylene Glycol 3350 [MiraLAX] 17 gm PO DAILY 12/23/17 [History] Albuterol [IJD: Albuterol] 2.5 mg NEB Q4H PRN #40 nebule 12/24/17 [Rx] Citalopram Hydrobromide [Celexa] 40 mg PO DAILY #30 tablet 12/24/17 [Rx] Past Medical History HEENT History: Reports: Hard of Hearing, Impaired Vision, Other (See Below) Other HEENT History: bleeding under arm Cardiovascular History: Reports: Blood Clots/VTE/DVT, Bypass, CAD, High Cholesterol, Hypertension, [place] Other Cardiovascular History: nov blood clot in l leg. Blood clot l arm. mar Still there. 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 Musculoskeletal Surgical History: Reports: Knee Replacement Other Musculoskeletal Surgeries/Procedures:: Back surgery, something with discs Social & Family History - Family History Family Medical History: Noncontributory HEENT: Reports: None Cardiac: Reports: Aneurysm, CAD - Tobacco Use Smoking Status *Q: Former Smoker Years of Tobacco use: 50 Packs/Tins Daily: 1.1 Used Tobacco, but Quit: Yes Month/Year Tobacco Last Used: years Second Hand Smoke Exposure: No - Caffeine Use Caffeine Use: Reports: Coffee Caffeine Use Comment: 2 cups a day - Alcohol Use Days Per Week of Alcohol Use: 1 Number of Drinks Per Day: 1 Total Drinks Per Week: 1 - Recreational Drug Use Recreational Drug Use: No - Living Situation & Occupation Living situation: Reports: (lives with Tami of 28 years. each have 2 adult children. live in [place], [place].) Occupation: Retired ED ROS GENERAL - Review of Systems Review Of Systems: See Below Constitutional: Reports: Weakness HEENT: Reports: No Symptoms Respiratory: Reports: No Symptoms Cardiovascular: Reports: No Symptoms GI/Abdominal: Reports: No Symptoms : Reports: No Symptoms Musculoskeletal: Reports: No Symptoms Skin: Reports: No Symptoms Neurological: Reports: Numbness (both LE's), Difficulty Walking, Weakness (both LE's) Psychiatric: Reports: Confusion (mild, progressive) ED EXAM, NEURO - Physical Exam Exam: See Below Exam Limited By: No Limitations General Appearance: Alert, WD/WN, No Apparent Distress, Obese Eye Exam: Bilateral Eye: Normal Inspection Ears: Normal External Exam, Normal Canal, Hearing Grossly Normal Nose: Normal Inspection, Normal Mucosa, No Blood Throat/Mouth: Normal Inspection, Normal Lips, Normal Oropharynx, Normal Voice, No Airway Compromise Head Exam: Atraumatic, Normocephalic Neck: Normal Inspection, Supple, Non-Tender Respiratory/Chest: No Respiratory Distress, Lungs Clear, Normal Breath Sounds, No Accessory Muscle Use Cardiovascular: Regular Rate, Rhythm, No Edema GI/Abdominal: Normal Bowel Sounds, Soft, Non-Tender, No Distention Neurological: Alert, Normal Mood/Affect, CN II-XII Intact, Other (Both LE's numb and weak, R leg not able to lift against gravity, L leg barely able to lift off bed.) Back Exam: Normal Inspection. No: CVA Tenderness (R), CVA Tenderness (L) Extremities: Normal Range of Motion Psychiatric: Normal Affect, Normal Mood Skin Exam: Warm, Dry, Intact, Normal Color, No Rash Course - Vital Signs Last Recorded V/S: Last Vital Signs Temp 36.3 C 01/02/18 14:24 Pulse 69 01/02/18 15:12 Resp 20 01/02/18 14:24 BP 134/40 L 01/02/18 15:12 Pulse Ox 91 L 01/02/18 15:12 - Orders/Labs/Meds Orders: Active Orders 24 hr Category Date Time Status UA W/MICROSCOPIC [URIN] Stat Lab 01/02/18 14:47 Ordered Labs: Laboratory Tests 01/02/18 01/02/18 Range/Units 14:57 14:57 WBC 10.9 (4.5-11.0) K/uL RBC 3.96 L (4.30-5.90) M/uL Hgb 12.5 (12.0-15.0) g/dL Hct 36.9 L (40.0-54.0) % MCV 93 (80-98) fL MCH 32 H (27-31) pg MCHC 34 (32-36) % Plt Count 221 (150-400) K/uL Sodium 136 L (140-148) mmol/L Potassium 4.3 (3.6-5.2) mmol/L Chloride 99 L (100-108) mmol/L Carbon Dioxide 30 (21-32) mmol/L Anion Gap 11.3 (5.0-14.0) mmol/L BUN 18 D (7-18) mg/dL Creatinine 1.0 (0.8-1.3) mg/dL Est Cr Clr Drug Dosing 63.25 mL/min Estimated GFR (MDRD) > 60 (>60) Glucose 102 (74-106) mg/dL Calcium 9.0 (8.5-10.1) mg/dL Troponin I 0.054 (0.000-0.056) ng/mL Departure - Departure Time of Disposition: 15:45 Disposition: Refer to Observation Condition: Fair Clinical Impression: History of progressive weakness, Bilateral leg numbness - Discharge Information Referrals: Ancelmo Davidson MD [Primary Care Provider] - Forms: ED Department Discharge - My Orders Last 24 Hours: My Active Orders 01/02/18 14:47 UA W/MICROSCOPIC [URIN] Stat - Assessment/Plan Last 24 Hours: My Active Orders 01/02/18 14:47 UA W/MICROSCOPIC [URIN] Stat
--- NOTE | 2018-01-02 17:01 | PCM.HP ---
H&P History of Present Illness - General Date of Service: 01/02/18 Admit Problem/Dx: Source of Information: Family, Old Records, Provider, RN Notes Reviewed History Limitations: Reports: Altered Mental Status (Dementia with confusion) - History of Present Illness Initial Comments - Free Text/Narative: Mr. Mora is an 82-year-old gentleman who is admitted through the emergency department for further evaluation and management of worsening right leg weakness. He has a long-standing history of back difficulty, about 2 years ago underwent spinal surgery for weakness and sensory changes in his left lower leg. Unfortunately after the surgery was left with the weakness in his left leg and developed new weakness and decreased sensation in the right lower leg. He has had difficulty with ambulation because of this and has had to wear leg braces to be able to ambulate. During the past few years is also developed progressive dementia and over the past few weeks is become more confused. His is noted that he's had increased weakness in his right leg over the past 2 days the point that he is unable to ambulate and has a hard time with transfers. She feels that she is no longer able to care for him at home because of the increase in weakness. - Related Data Allergies/Adverse Reactions: Allergies Allergy/AdvReac Type Severity Reaction Status Date / Time triamcinolone Allergy Itching Verified 12/16/17 10:06 triamcinolone acetonide Allergy Rash Verified 12/16/17 10:06 [From Kenalog] Home Medications: Home Meds Multivitamins/Minerals [Vitamins and Minerals] 1 tab PO DAILY tablet 04/02/15 [ Rx] Furosemide [Lasix] 40 mg PO DAILY 05/30/15 [History] Potassium Chloride [Klor-Con M20] 20 meq PO BID 05/30/15 [History] Cholecalciferol (Vitamin D3) [Vitamin D3] 1,000 units PO DAILY 07/17/15 [History ] Acetaminophen [Tylenol] 650 mg PO BID PRN 07/25/15 [History] Ascorbic Acid [Vitamin C] 500 mg PO DAILY 07/25/15 [History] [place]-3 Fatty Acids [Fish Oil] 1,000 mg PO DAILY 07/25/15 [History] Vitamin E 400 units PO DAILY 07/25/15 [History] Ranitidine [Zantac] 150 mg PO BID 11/30/15 [History] Metoprolol Succinate [Toprol XL] 50 mg PO DAILY 03/25/16 [History] carBAMazepine [Epitol] 400 mg PO BEDTIME 04/26/16 [History] Tamsulosin [Flomax] 0.4 mg PO DAILY 07/31/16 [History] carBAMazepine [Epitol] 200 mg PO BID 07/31/16 [History] Lovastatin 20 mg PO BEDTIME 09/15/17 [History] Warfarin [Coumadin] 10 - 15 mg PO ASDIRECTED 09/15/17 [History] Fluticasone/Vilanterol [Breo Ellipta 100-25 MCG Inhalation Kit] 1 each INH DAILY 12/16/17 [History] Cefuroxime Axetil [Cefuroxime] 500 mg PO BID 12/22/17 [History] Polyethylene Glycol 3350 [MiraLAX] 17 gm PO DAILY 12/23/17 [History] Albuterol [IJD: Albuterol] 2.5 mg NEB Q4H PRN #40 nebule 12/24/17 [Rx] Citalopram Hydrobromide [Celexa] 40 mg PO DAILY #30 tablet 12/24/17 [Rx] Past Medical History HEENT History: Reports: Hard of Hearing, Impaired Vision, Other (See Below) Other HEENT History: bleeding under arm Cardiovascular History: Reports: Blood Clots/VTE/DVT, Bypass, CAD, High Cholesterol, Hypertension, [place] Other Cardiovascular History: nov blood clot in l leg. Blood clot l arm. mar Still there. 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 Musculoskeletal Surgical History: Reports: Knee Replacement Other Musculoskeletal Surgeries/Procedures:: Back surgery, something with discs Social & Family History - Family History Family Medical History: Noncontributory HEENT: Reports: None Cardiac: Reports: Aneurysm, CAD - Tobacco Use Smoking Status *Q: Former Smoker Years of Tobacco use: 50 Packs/Tins Daily: 1.1 Used Tobacco, but Quit: Yes Month/Year Tobacco Last Used: years Second Hand Smoke Exposure: No - Caffeine Use Caffeine Use: Reports: Coffee Caffeine Use Comment: 2 cups a day - Alcohol Use Days Per Week of Alcohol Use: 1 Number of Drinks Per Day: 1 Total Drinks Per Week: 1 - Recreational Drug Use Recreational Drug Use: No - Living Situation & Occupation Living situation: Reports: (lives with Tami of 28 years. each have 2 adult children. live in [place], [place].) Occupation: Retired H&P Review of Systems - Review of Systems: Review Of Systems: See Below General: Reports: ROS unobtainable (Dementia with confusion) Exam - Exam Exam: See Below - Vital Signs Vital Signs: Last Vital Signs Temp 97.3 F 01/02/18 14:24 Pulse 69 01/02/18 15:12 Resp 20 01/02/18 14:24 BP 134/40 L 01/02/18 15:12 Pulse Ox 91 L 01/02/18 15:12 Weight: 218 lb - Exam Quality Assessment: DVT Prophylaxis General: Alert, Cooperative, Mild Distress. No: Oriented HEENT: Conjunctiva Clear, Mucosa Moist & [place], Normal Nasal Septum, Posterior Pharynx Clear, Pupils Equal. No: Hearing Intact Neck: Supple, Trachea Midline, +2 Carotid Pulse wo Bruit Lungs: Clear to Auscultation, Normal Respiratory Effort Cardiovascular: Regular Rate, Normal S1, Normal S2, Irregular Rhythm. No: Systolic Murmur, Diastolic Murmur GI/Abdominal Exam: Soft, Non-Tender, No Organomegaly, No Distention Back Exam: Normal Inspection, Full Range of Motion Extremities: Non-Tender, No Pedal Edema Skin: Warm, Dry, Intact Neurological: Cranial Nerves Intact, Normal Speech, Other (Significant weakness both lower extremities but worse on the right and now extends into the thigh. Decreased sensation both legs into the thigh) - Patient Data Lab Results Last 24 hrs: Laboratory Results - last 24 hr 01/02/18 01/02/18 01/02/18 Range/Units 14:57 14:57 16:39 WBC 10.9 (4.5-11.0) K/uL RBC 3.96 L (4.30-5.90) M/uL Hgb 12.5 (12.0-15.0) g/dL Hct 36.9 L (40.0-54.0) % MCV 93 (80-98) fL MCH 32 H (27-31) pg MCHC 34 (32-36) % Plt Count 221 (150-400) K/uL Sodium 136 L (140-148) mmol/L Potassium 4.3 (3.6-5.2) mmol/L Chloride 99 L (100-108) mmol/L Carbon Dioxide 30 (21-32) mmol/L Anion Gap 11.3 (5.0-14.0) mmol/L BUN 18 D (7-18) mg/dL Creatinine 1.0 (0.8-1.3) mg/dL Est Cr Clr Drug Dosing 63.25 mL/min Estimated GFR (MDRD) > 60 (>60) Glucose 102 (74-106) mg/dL Calcium 9.0 (8.5-10.1) mg/dL Troponin I 0.054 (0.000-0.056) ng/mL Urine Color Yellow Urine Appearance Clear Urine pH 5.0 (4.5-8.0) Ur Specific [place] 1.010 (1.008-1.030) Urine Protein Negative (NEGATIVE) mg/dL Urine Glucose (UA) Normal (NEGATIVE) mg/dL Urine Ketones Negative (NEGATIVE) mg/dL Urine Occult Blood Negative (NEGATIVE) Urine Nitrite Negative (NEGAITVE) Urine Bilirubin Negative (NEGATIVE) Urine Urobilinogen Normal (NORMAL) mg/dL Ur Leukocyte Esterase Small (NEGATIVE) Urine RBC 0-5 (0-5) Urine WBC 0-5 (0-5) Ur Epithelial Cells Rare Amorphous Sediment Not seen Urine Bacteria Not seen Urine Mucus Not seen Result Diagrams: 01/02/18 14:57 01/02/18 14:57 *Q Meaningful Use (ADM) - VTE *Q VTE Criteria *Q: VTE Pharmacological Contraindications *Q: High INR Value - VTE Risk Assess *Q Each Risk Factor Represents 1 Point: Obesity ( BMI > 25 kg/m2), Abnormal Pulmonary Function (COPD) Total Score 1 Point Risk Factors: 2 Each Risk Factor Represents 2 Points: None Total Score 2 Point Risk Factors: 0 Each Risk Factor Represents 3 Points: Age 75 Years or Greater Total Score 3 Point Risk Factors: 3 Each Risk Factor Represents 5 Points: None Total Score 5 Point Risk Factors: 0 Venous Thromboembolism Risk Factor Score *Q: 5 - Stroke *Q Stroke Criteria *Q: - AMI *Q AMI Criteria *Q: Problem List Initiated/Reviewed/Updated: Yes Orders Last 24hrs: Active Orders 24 hr Category Date Time Status Patient Status Manage Transfer [TRANSFER] Routine ADT 01/02/18 16:40 Ordered Head wo Cont [CT] Stat Exams 01/02/18 16:31 Taken Resuscitation Status Routine Resus Stat 01/02/18 16:44 Ordered Assessment/Plan Comment:: ASSESSMENT AND PLAN WORSENING RIGHT LEG WEAKNESS-history of lumbar spine disease, status post previous failed surgical intervention. At baseline he has weakness and decreased sensation in both lower legs. Over the past 2 days his developed increased weakness in his right leg to the point that he is unable to assist with transfers or ambulate. Differential would include PATTERN ATTENDANT mass or CVA, versus increased impingement in the lumbar spine. I discussed this with the patient and his , conversation complicated by his dementia. They do not want aggressive interventions or transfer to a tertiary care center at this time. They would like to proceed with evaluation to determine etiology and see if any other options for management are available. -CT scan of the head tonight without contrast -MRI of the lumbar spine in a.m. -MRI of the brain with and without contrast in a.m. DEMENTIA-increased confusion over the past few weeks, at times does not recognize his . She feels that she is no longer able to care for him at home and he will require retirement placement at the time of discharge. 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 -Warfarin 10 mg by mouth daily MAINTENANCE ISSUES -DVT prophylaxis; current therapy with warfarin should provide adequate DVT prophylaxis -GI prophylaxis; continue outpatient H2 pa therapy -Osorio catheter; not indicated -Nutrition; regular diet -Nicotine dependence; not required CODE STATUS-FULL CODE ADMISSION STATUS-patient will be admitted to inpatient status, expect at least a 2 night hospital stay for evaluation and management of problems as outlined above. At the time of this admission I do not reasonably expected evaluation and management of this problem will require more than a 96 hour hospital stay. DISPOSITION-anticipate discharge to home after the hospital stay. PRIMARY CARE PROVIDER-Dr. Davidson
[2018-01-02] MEDS ORDERED: Acetaminophen 325 MG Tab PO PRN (18:12)
[2018-01-02] MEDS ORDERED: Sodium Chloride 0.9% 10 ML Syringe FLUSH PRN (18:12)
[2018-01-02] MEDS ORDERED: Albuterol 0.083% 2.5 MG/3 ML Neb Soln NEB PRN (18:12)
[2018-01-02] MEDS ORDERED: oxyCODONE 5 MG Tab PO PRN (18:12)
[2018-01-02] MEDS ORDERED: Magnesium Hydroxide 400 MG/5 ML Susp 30 ML Cup PO PRN (18:12)
[2018-01-02] MEDS ORDERED: Polyethylene Glycol 3350 Powder 17 GM Packet PO PRN (18:12)
[2018-01-02] MEDS ORDERED: Ondansetron 4 MG/2 ML SDV IV PRN (18:12)
[2018-01-02] MEDS ORDERED: carBAMazepine 200 MG Tab PO SCH (21:00)
[2018-01-02] MEDS: Melatonin 3 MG Tab PO SCH (21:06)
[2018-01-02] MEDS: Potassium Chloride 20 MEQ Tab.ER PO SCH (21:06)
[2018-01-03] MEDS: carBAMazepine 200 MG Tab PO SCH ×3 (08:27→20:10)
[2018-01-03] MEDS: Citalopram 20 MG Tab PO SCH (08:27)
[2018-01-03] MEDS: Tamsulosin 0.4 MG Cap.ER PO SCH (08:28)
[2018-01-03] MEDS: Potassium Chloride 20 MEQ Tab.ER PO SCH ×2 (08:29→20:10)
[2018-01-03] MEDS: Polyethylene Glycol 3350 Powder 17 GM Packet PO SCH (08:29)
[2018-01-03] MEDS: Furosemide 40 MG Tab PO SCH (08:29)
[2018-01-03] MEDS: Metoprolol Succinate 50 MG Tab.ER PO SCH (08:30)
[2018-01-03] MEDS: Formoterol/Mometasone 100-5 MCG 8.8 GM Inhaler IH SCH ×2 (08:31→20:10)
[2018-01-03] MEDS ORDERED: Haloperidol Lactate 5 MG/ML SDV IVPUSH ONE (09:00)
[2018-01-03] MEDS ORDERED: Formoterol/Mometasone 100-5 MCG 8.8 GM Inhaler IH SCH (09:00)
[2018-01-03] MEDS ORDERED: Gadoteridol 279.3 MG/ML 15 ML SDV IV SCH (12:00)
[2018-01-03] MEDS: Warfarin 5 MG Tab PO SCH (12:36)
--- NOTE | 2018-01-03 13:12 | MR ---
Brain w wo Cont HISTORY: Increased right leg weakness. COMPARISON: None TECHNIQUE: The brain was imaged in the axial, sagittal, and coronal planes utilizing T1 pre and postc ontrast, gradient echo, T2, FLAIR, and diffusion-weighted techniques. FINDINGS: There is significant motion artifact on all sequences. There are diffuse scattered foci of signal hyperintensity involving the deep white matter on the long TR sequences. The findings are most consistent with chronic ischemic microvascular changes of the wh ite matter. There are no space-occupying lesions. There 3 foci of altered effusion involving the left basal ganglia consistent with areas of acute ischemia. The largest measures 1.3 x 0.9 cm. There is n o evidence of hemorrhage or mass effect. There is central and cortical cerebral volume loss consisten t with age. There are craniotomy changes in the high right parietal region. There is encephalomalacia of the right parietal lobe. There are no pathologic areas of enhancement of the brain. There are ext ensive inflammatory changes of the paranasal sinuses which are consolidated. IMPRESSION 1. 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 2. Chronic ischemic microvascular changes throughout the white matter. 3. Extensive inflammatory sinus disease in a pansinus distribution. 3. Inflammatory sinus disease in the pansinus distribution.
--- NOTE | 2018-01-03 13:24 | MR ---
Lumbar Spine Comp wo Cont HISTORY: Worsening right leg weakness. COMPARISON: September 2015. Open contacts TECHNIQUE: The lumbar spine was imaged in the axial, coronal, and sagittal planes utilizing T1, T2, a nd STIR techniques. FINDINGS: The conus terminates in its anatomic location and is normal in appearance.There has been in terval surgical posterior decompression at the L2/3-L4/5 levels. There are pedicle screws and posteri or rods throughout the levels. There is chronic grade 1 spondylolisthesis at L4/5. There are chronic degenerative disc bulges. There has been no interval development of disc herniations or protrusions. There is no spinal stenosis. Th ere is no significant foraminal narrowing. Impression: 1. Postsurgical decompression as described above. There is no spinal stenosis. There are multilevel s table degenerative disc bulges. No new findings of significant foraminal narrowing demonstrated.
[2018-01-03] MEDS: Clindamycin HCl 150 MG Cap PO SCH ×2 (14:38→21:10)
[2018-01-03] MEDS: Lactobacillus Rhamnosus GG (Probiotic) Cap PO SCH ×2 (14:38→20:10)
--- NOTE | 2018-01-03 15:06 | PCM.PN ---
- General Info Date of Service: 01/03/18 Subjective Update: Mr. Mora is been stable since admission, right leg weakness is unchanged. MRI of the brain showed evidence of 3 small lacunar infarcts near the left basal ganglion, likely cause of his new weakness. MRI of the lumbar spine showed no acute or new findings. Discussed options with the patient and his concerning further evaluation and management, he will remain on anticoagulation with warfarin. They do not want to consider further evaluations or interventions. Cousin cognitive impairment he's unable to provide significant information concerning current symptoms or review of systems. Functional Status: Reports: Tolerating Diet, Urinating - Patient Data Vitals - Most Recent: Last Vital Signs Temp 97.5 F 01/03/18 12:00 Pulse 64 01/03/18 12:00 Resp 20 01/03/18 12:00 BP 111/78 01/03/18 12:00 Pulse Ox 96 01/03/18 12:00 Weight - Most Recent: 220 lb 1 oz I&O - Last 24 Hours: Intake & Output 01/02/18 01/03/18 01/03/18 22:59 06:59 14:59 Output Total 100 Balance -100 Lab Results Last 24 Hours: Laboratory Results - last 24 hr 01/03/18 01/03/18 01/03/18 Range/Units 04:50 04:50 04:50 WBC 9.3 (4.5-11.0) K/uL RBC 3.64 L (4.30-5.90) M/uL Hgb 11.6 L (12.0-15.0) g/dL Hct 34.3 L (40.0-54.0) % MCV 94 (80-98) fL MCH 32 H (27-31) pg MCHC 34 (32-36) % Plt Count 194 (150-400) K/uL Neut % (Auto) 33 L (36-66) % Lymph % (Auto) 9 L (24-44) % Carbon % (Auto) 6 (2-6) % Eos % (Auto) 52 H (2-4) % Baso % (Auto) 0 (0-1) % PT 23.2 H (9.5-12.0) sec INR 2.10 H (0.80-1.20) Sodium 137 L (140-148) mmol/L Potassium 4.6 (3.6-5.2) mmol/L Chloride 102 (100-108) mmol/L Carbon Dioxide 29 (21-32) mmol/L Anion Gap 10.6 (5.0-14.0) mmol/L BUN 19 H (7-18) mg/dL Creatinine 1.1 (0.8-1.3) mg/dL Est Cr Clr Drug Dosing 55.85 mL/min Estimated GFR (MDRD) > 60 (>60) Glucose 100 (74-106) mg/dL Calcium 8.6 (8.5-10.1) mg/dL Magnesium 2.0 (1.8-2.4) mg/dL Total Bilirubin 0.4 (0.2-1.0) mg/dL AST 13 L (15-37) U/L ALT 15 (12-78) U/L Alkaline Phosphatase 89 (46-116) U/L Total Protein 6.3 L (6.4-8.2) g/dL Albumin 3.0 L (3.4-5.0) g/dL Globulin 3.3 (2.3-3.5) g/dL Albumin/Globulin Ratio 0.9 L (1.2-2.2) Med Orders - Current: Current Medications Acetaminophen (Tylenol) 650 mg PO Q4H PRN PRN Reason: Pain (Mild 1-3)/fever Last Admin: 01/03/18 13:39 Dose: 650 mg Albuterol (Proventil Neb Soln) 2.5 mg NEB Q4H PRN PRN Reason: Shortness Of Breath/wheezing Last Admin: 01/02/18 21:02 Dose: 2.5 mg Carbamazepine (Tegretol Tab) 400 mg PO BEDTIME [facility] Carbamazepine (Tegretol Tab) 200 mg PO BID@0800,1500 [facility] Last Admin: 01/03/18 14:39 Dose: 200 mg Citalopram Hydrobromide (Celexa) 40 mg PO DAILY [facility] Last Admin: 01/03/18 08:27 Dose: 40 mg Clindamycin HCl (Cleocin) 300 mg PO Q8H [facility] Last Admin: 01/03/18 14:38 Dose: 300 mg Furosemide (Lasix) 40 mg PO DAILY [facility] Last Admin: 01/03/18 08:29 Dose: 40 mg Gadoteridol (Prohance) 15 ml IV .A DIRECTED [facility] Stop: 01/03/18 23:00 Last Admin: 01/03/18 12:20 Dose: 15 ml Lactobacillus Rhamnosus (Culturelle) 2 cap PO BID [facility] Last Admin: 01/03/18 14:38 Dose: 2 cap Lovastatin (Mevacor) 20 mg PO BEDTIME [facility] Last Admin: 01/02/18 21:12 Dose: 20 mg Magnesium Hydroxide (Milk Of Magnesia) 30 ml PO Q12H PRN PRN Reason: Constipation Melatonin (Melatonin) 9 mg PO BEDTIME [facility] Last Admin: 01/02/18 21:06 Dose: 9 mg Metoprolol Succinate (Toprol Xl) 50 mg PO DAILY [facility] Last Admin: 01/03/18 08:30 Dose: 50 mg Mometasone Furoate/Formoterol Fumar (Dulera 100-5 Mcg) 1 puff IH BIDRT [facility] Last Admin: 01/03/18 08:31 Dose: 1 inhalation Ondansetron HCl (Zofran) 4 mg IV Q4H PRN PRN Reason: Nausea/Vomiting Oxycodone HCl (Oxycodone) 5 mg PO Q4H PRN PRN Reason: Pain (moderate 4-6) Polyethylene Glycol (Miralax) 17 gm PO DAILY [facility] Last Admin: 01/03/18 08:29 Dose: 17 gm Polyethylene Glycol (Miralax) 17 gm PO DAILY PRN PRN Reason: Constipation Potassium Chloride (Klor-Con M20) 20 meq PO BID [facility] Last Admin: 01/03/18 08:29 Dose: 20 meq Ranitidine HCl (Zantac) 150 mg PO BID [facility] Last Admin: 01/03/18 08:30 Dose: 150 mg Senna/Docusate Sodium (Senna Plus) 1 tab PO BID PRN PRN Reason: Constipation Sodium Chloride (Saline Flush) 10 ml FLUSH ASDIRECTED PRN PRN Reason: Keep Vein Open Tamsulosin HCl (Flomax) 0.4 mg PO DAILY [facility] Last Admin: 01/03/18 08:28 Dose: 0.4 mg Warfarin Sodium (Coumadin) 10 mg PO DAILY@1300 [facility] Last Admin: 01/03/18 12:36 Dose: 10 mg Discontinued Medications Carbamazepine (Tegretol Tab) 200 mg PO BID [facility] Last Admin: 01/02/18 21:06 Dose: 200 mg Haloperidol Lactate (Haldol) 1 mg IVPUSH ONETIME ONE Stop: 01/03/18 09:01 Last Admin: 01/03/18 10:49 Dose: 1 mg - Exam Quality Assessment: DVT Prophylaxis General: Alert, Cooperative, No Acute Distress. No: Oriented Lungs: Normal Respiratory Effort, Decreased Breath Sounds, Wheezing. No: Rales , Rhonchi Cardiovascular: Regular Rate, No Murmurs, Irregular Rhythm GI/Abdominal Exam: Soft, Non-Tender, No Organomegaly, No Distention Extremities: Non-Tender, No Pedal Edema Skin: Warm, Dry, Intact - Problem List Review Problem List Initiated/Reviewed/Updated: Yes - My Orders Last 24 Hours: My Active Orders 01/02/18 16:44 Resuscitation Status Routine 01/02/18 18:12 Patient Status [ADT] Routine Height and Weight [RC] DAILY Intake and Output [RC] QSHIFT Notify Provider Vital Signs [RC] ASDIRECTED Oxygen Therapy [RC] PRN Up With Assistance [RC] ASDIRECTED Up to Chair [RC] QID VTE/DVT Education [RC] Per Unit Routine Vital Signs [RC] Q4H PT Evaluation and Treatment [CONS] Routine Acetaminophen [Tylenol] 650 mg PO Q4H PRN Docusate Sodium/Sennosides [Senna Plus] 1 tab PO BID PRN Magnesium Hydroxide [Milk of Magnesia] 30 ml PO Q12H PRN Ondansetron [Zofran] 4 mg IV Q4H PRN Polyethylene Glycol 3350 [MiraLAX] 17 gm PO DAILY PRN Sodium Chloride 0.9% [Saline Flush] 10 ml FLUSH ASDIRECTED PRN oxyCODONE 5 mg PO Q4H PRN Saline Lock Insert [OM.PC] Routine VTE Pharmacological Contraindications [AST] Per Unit Routine 01/02/18 21:00 Melatonin 9 mg PO BEDTIME 01/03/18 07:30 Mometasone/Formoterol [Dulera 100-5 MCG] 1 puff IH BIDRT 01/03/18 08:00 carBAMazepine [TEGretol Tab] 200 mg PO BID@0800,1500 01/03/18 12:00 Gadoteridol [ProHance] 15 ml IV .A DIRECTED 01/03/18 13:00 Warfarin [Coumadin] 10 mg PO DAILY@1300 01/03/18 13:15 Lactobacillus Rhamnosus GG [Culturelle] 2 cap PO BID 01/03/18 14:00 Clindamycin HCl [Cleocin] 300 mg PO Q8H 01/04/18 05:00 INR,PT,PROTHROMBIN TIME [COAG] Timed - Plan Plan:: ASSESSMENT AND PLAN SUBACUTE CVA-recent onset of new right leg weakness. MRI of the brain shows evidence of 3 small lacunar infarcts in the area of the left basal ganglion, likely cause of new neurologic findings. MRI of the lumbar spine showed no acute or new findings. Patient and his do not want to pursue further evaluation or intervention. -Continue oral anticoagulation with warfarin DEMENTIA-increased confusion over the past few weeks, at times does not recognize his . She feels that she is no longer able to care for him at home and he will require jail placement at the time of discharge. 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 -Warfarin 10 mg by mouth daily MAINTENANCE ISSUES -DVT prophylaxis; current therapy with warfarin should provide adequate DVT prophylaxis -GI prophylaxis; continue outpatient H2 pa therapy -Osorio catheter; not indicated -Nutrition; regular diet -Nicotine dependence; not required CODE STATUS-FULL CODE ADMISSION STATUS-patient will be admitted to inpatient status, expect at least a 2 night hospital stay for evaluation and management of problems as outlined above. At the time of this admission I do not reasonably expected evaluation and management of this problem will require more than a 96 hour hospital stay. DISPOSITION-anticipate discharge to jail, does not feel that she is able to provide ongoing care at home. PRIMARY CARE PROVIDER-Dr. Davidson
[2018-01-03] MEDS: Melatonin 3 MG Tab PO SCH (20:10)
[2018-01-04] MEDS: Clindamycin HCl 150 MG Cap PO SCH ×3 (05:42→21:10)
[2018-01-04] MEDS: Citalopram 20 MG Tab PO SCH (08:34)
[2018-01-04] MEDS: Tamsulosin 0.4 MG Cap.ER PO SCH (08:35)
[2018-01-04] MEDS: Lactobacillus Rhamnosus GG (Probiotic) Cap PO SCH ×2 (08:35→20:10)
[2018-01-04] MEDS: Furosemide 40 MG Tab PO SCH (08:36)
[2018-01-04] MEDS: Potassium Chloride 20 MEQ Tab.ER PO SCH ×2 (08:36→20:10)
[2018-01-04] MEDS: carBAMazepine 200 MG Tab PO SCH ×3 (08:37→20:12)
[2018-01-04] MEDS: Polyethylene Glycol 3350 Powder 17 GM Packet PO SCH (08:37)
[2018-01-04] MEDS: Metoprolol Succinate 50 MG Tab.ER PO SCH (08:48)
[2018-01-04] MEDS: Formoterol/Mometasone 100-5 MCG 8.8 GM Inhaler IH SCH ×2 (09:04→20:10)
--- NOTE | 2018-01-04 10:03 | PCM.PN ---
- General Info Date of Service: 01/04/18 Subjective Update: Mr. Mora has remained stable since yesterday, continued weakness right lower extremity secondary to recent CVA. Vital signs have been stable and he remains afebrile. He is unable to provide significant information concerning symptoms or review of systems because of underlying dementia. - Patient Data Vitals - Most Recent: Last Vital Signs Temp 96.8 F 01/04/18 07:28 Pulse 64 01/04/18 08:48 Resp 17 01/04/18 07:28 BP 134/78 01/04/18 08:48 Pulse Ox 95 01/04/18 07:28 Weight - Most Recent: 220 lb 1 oz I&O - Last 24 Hours: Intake & Output 01/03/18 01/04/18 01/04/18 22:59 06:59 14:59 Intake Total 240 Balance 240 Lab Results Last 24 Hours: Laboratory Results - last 24 hr 01/04/18 Range/Units 04:10 PT 26.6 H (9.5-12.0) sec INR 2.40 H (0.80-1.20) Med Orders - Current: Current Medications Acetaminophen (Tylenol) 650 mg PO Q4H PRN PRN Reason: Pain (Mild 1-3)/fever Last Admin: 01/03/18 13:39 Dose: 650 mg Albuterol (Proventil Neb Soln) 2.5 mg NEB Q4H PRN PRN Reason: Shortness Of Breath/wheezing Last Admin: 01/02/18 21:02 Dose: 2.5 mg Carbamazepine (Tegretol Tab) 400 mg PO BEDTIME [facility] Last Admin: 01/03/18 20:10 Dose: 400 mg Carbamazepine (Tegretol Tab) 200 mg PO BID@0800,1500 [facility] Last Admin: 01/04/18 08:37 Dose: 200 mg Citalopram Hydrobromide (Celexa) 40 mg PO DAILY [facility] Last Admin: 01/04/18 08:34 Dose: 40 mg Clindamycin HCl (Cleocin) 300 mg PO Q8H [facility] Last Admin: 01/04/18 05:42 Dose: 300 mg Furosemide (Lasix) 40 mg PO DAILY [facility] Last Admin: 01/04/18 08:36 Dose: 40 mg Lactobacillus Rhamnosus (Culturelle) 2 cap PO BID [facility] Last Admin: 01/04/18 08:35 Dose: 2 cap Lovastatin (Mevacor) 20 mg PO BEDTIME [facility] Last Admin: 01/03/18 20:10 Dose: 20 mg Magnesium Hydroxide (Milk Of Magnesia) 30 ml PO Q12H PRN PRN Reason: Constipation Melatonin (Melatonin) 9 mg PO BEDTIME [facility] Last Admin: 01/03/18 20:10 Dose: 9 mg Metoprolol Succinate (Toprol Xl) 50 mg PO DAILY [facility] Last Admin: 01/04/18 08:48 Dose: 50 mg Mometasone Furoate/Formoterol Fumar (Dulera 100-5 Mcg) 1 puff IH BIDRT [facility] Last Admin: 01/04/18 09:04 Dose: 1 inhalation Ondansetron HCl (Zofran) 4 mg IV Q4H PRN PRN Reason: Nausea/Vomiting Oxycodone HCl (Oxycodone) 5 mg PO Q4H PRN PRN Reason: Pain (moderate 4-6) Polyethylene Glycol (Miralax) 17 gm PO DAILY [facility] Last Admin: 01/04/18 08:37 Dose: 17 gm Polyethylene Glycol (Miralax) 17 gm PO DAILY PRN PRN Reason: Constipation Potassium Chloride (Klor-Con M20) 20 meq PO BID [facility] Last Admin: 01/04/18 08:36 Dose: 20 meq Ranitidine HCl (Zantac) 150 mg PO BID [facility] Last Admin: 01/04/18 08:49 Dose: 150 mg Senna/Docusate Sodium (Senna Plus) 1 tab PO BID PRN PRN Reason: Constipation Sodium Chloride (Saline Flush) 10 ml FLUSH ASDIRECTED PRN PRN Reason: Keep Vein Open Tamsulosin HCl (Flomax) 0.4 mg PO DAILY [facility] Last Admin: 01/04/18 08:35 Dose: 0.4 mg Warfarin Sodium (Coumadin) 10 mg PO DAILY@1300 [facility] Last Admin: 01/03/18 12:36 Dose: 10 mg Discontinued Medications Carbamazepine (Tegretol Tab) 200 mg PO BID [facility] Last Admin: 01/02/18 21:06 Dose: 200 mg Gadoteridol (Prohance) 15 ml IV .A DIRECTED [facility] Stop: 01/03/18 23:00 Last Admin: 01/03/18 12:20 Dose: 15 ml Haloperidol Lactate (Haldol) 1 mg IVPUSH ONETIME ONE Stop: 01/03/18 09:01 Last Admin: 01/03/18 10:49 Dose: 1 mg - Exam Quality Assessment: DVT Prophylaxis General: Alert, Cooperative, No Acute Distress. No: Oriented Lungs: Decreased Breath Sounds, Wheezing. No: Crackles, Rales, Rhonchi, Rub Cardiovascular: Regular Rate, No Murmurs, Irregular Rhythm GI/Abdominal Exam: Soft, Non-Tender, No Organomegaly, No Distention Extremities: Non-Tender, No Pedal Edema Skin: Warm, Dry Neurological: No New Focal Deficit - Problem List Review Problem List Initiated/Reviewed/Updated: Yes - My Orders Last 24 Hours: My Active Orders 01/03/18 13:00 Warfarin [Coumadin] 10 mg PO DAILY@1300 01/03/18 13:15 Lactobacillus Rhamnosus GG [Culturelle] 2 cap PO BID 01/03/18 14:00 Clindamycin HCl [Cleocin] 300 mg PO Q8H 01/05/18 05:00 INR,PT,PROTHROMBIN TIME [COAG] Timed - Plan Plan:: ASSESSMENT AND PLAN SUBACUTE CVA-recent onset of new right leg weakness. MRI of the brain shows evidence of 3 small lacunar infarcts in the area of the left basal ganglion, likely cause of new neurologic findings. MRI of the lumbar spine showed no acute or new findings. Patient and his do not want to pursue further evaluation or intervention. INR remains within therapeutic range -Continue oral anticoagulation with warfarin DEMENTIA-increased confusion over the past few weeks, at times does not recognize his . She feels that she is no longer able to care for him at home and he will require senior living placement at the time of discharge. 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 -Warfarin 10 mg by mouth daily MAINTENANCE ISSUES -DVT prophylaxis; current therapy with warfarin should provide adequate DVT prophylaxis -GI prophylaxis; continue outpatient H2 pa therapy -Osorio catheter; not indicated -Nutrition; regular diet -Nicotine dependence; not required CODE STATUS-FULL CODE ADMISSION STATUS-patient will be admitted to inpatient status, expect at least a 2 night hospital stay for evaluation and management of problems as outlined above. At the time of this admission I do not reasonably expected evaluation and management of this problem will require more than a 96 hour hospital stay. DISPOSITION-anticipate discharge to senior living, does not feel that she is able to provide ongoing care at home. PRIMARY CARE PROVIDER-Dr. Davidson
[2018-01-04] MEDS: Warfarin 5 MG Tab PO SCH (12:21)
[2018-01-04] MEDS: Melatonin 3 MG Tab PO SCH (20:11)
[2018-01-05] MEDS: Clindamycin HCl 150 MG Cap PO SCH (05:38)
[2018-01-05] MEDS: Formoterol/Mometasone 100-5 MCG 8.8 GM Inhaler IH SCH (07:24)
[2018-01-05 07:40] VITALS: BP 120/61
[2018-01-05] MEDS: Citalopram 20 MG Tab PO SCH (09:00)
[2018-01-05] MEDS: carBAMazepine 200 MG Tab PO SCH (09:00)
[2018-01-05] MEDS: Tamsulosin 0.4 MG Cap.ER PO SCH (09:01)
[2018-01-05] MEDS: Metoprolol Succinate 50 MG Tab.ER PO SCH (09:01)
[2018-01-05] MEDS: Furosemide 40 MG Tab PO SCH (09:01)
[2018-01-05] MEDS: Lactobacillus Rhamnosus GG (Probiotic) Cap PO SCH (09:01)
[2018-01-05] MEDS: Potassium Chloride 20 MEQ Tab.ER PO SCH (09:01)
[2018-01-05] MEDS: Polyethylene Glycol 3350 Powder 17 GM Packet PO SCH (09:02)
--- NOTE | 2018-01-05 10:25 | PCM.DCSUM1 ---
Discharge Summary - Hospital Course Brief History: Mr. Mora is an 82-year-old gentleman who was admitted through the emergency department for further evaluation of new right leg weakness. - Discharge Data Discharge Date: 01/05/18 Discharge Disposition: DC/Tfer to SNF 03 Condition: Fair - Discharge Diagnosis/Problem(s) (1) Acute cerebrovascular accident (CVA) SNOMED Code(s): 153409537 ICD Code: I63.9 - CEREBRAL INFARCTION, UNSPECIFIED Status: Acute Current Visit: Yes (2) History of progressive weakness SNOMED Code(s): 136354119 ICD Code: Z87.898 - PERSONAL HISTORY OF OTHER SPECIFIED CONDITIONS Status: Acute Current Visit: Yes (3) Bilateral leg numbness SNOMED Code(s): 884652133 ICD Code: R20.0 - ANESTHESIA OF SKIN Status: Acute Current Visit: Yes (4) Dementia SNOMED Code(s): 42015597 ICD Code: F03.90 - UNSPECIFIED DEMENTIA WITHOUT BEHAVIORAL DISTURBANCE Status: Chronic Current Visit: No Qualifiers: Dementia type: Alzheimer's disease Dementia behavioral disturbance: without behavioral disturbance (5) COPD (chronic obstructive pulmonary disease) SNOMED Code(s): 44081348 ICD Code: J44.9 - CHRONIC OBSTRUCTIVE PULMONARY DISEASE, UNSPECIFIED Status : Chronic Current Visit: No Qualifiers: Emphysema type: unspecified (6) Anticoagulated on Coumadin SNOMED Code(s): 96782519 ICD Code: Z51.81 - ENCOUNTER FOR THERAPEUTIC DRUG LEVEL MONITORING; Z79.01 - RESIDENTIAL (CURRENT) USE OF ANTICOAGULANTS Status: Chronic Priority: Medium Current Visit: No (7) Chronic panethmoidal sinusitis SNOMED Code(s): 225104247 ICD Code: J32.2 - CHRONIC ETHMOIDAL SINUSITIS Status: Chronic Current Visit: No - Patient Summary/Data Consults: Consultations 01/02/18 18:12 PT Evaluation and Treatment [CONS] Routine Please Evaluate and Treat. PT Reason for Consult: Increase in right leg weakness This query below is only for informational purposes and is not editable. Hospital Course: Mr. Mora is an 82-year-old gentleman who was admitted through the emergency department for further evaluation and management of worsening right leg weakness. He has a long-standing history of back difficulty, about 2 years ago underwent spinal surgery for weakness and sensory changes in his left lower leg. Unfortunately after the surgery was left with the weakness in his left leg and developed new weakness and decreased sensation in the right lower leg. He has had difficulty with ambulation because of this and has had to wear leg braces to be able to ambulate. During the past few years has also developed progressive dementia and over the past few weeks has become more confused. His has noted that he's had increased weakness in his right leg over the past 2 days to the point that he is unable to ambulate and has a hard time with transfers. She feels that she is no longer able to care for him at home because of the increase in weakness. He was admitted to the hospital and CT scan of the head without contrast was obtained in the emergency department. CT scan showed no acute findings to explain current symptoms. CT scan did show evidence of ongoing evidence of sinus infection and he was started on oral antibiotic therapy with clindamycin 3 times daily. With initiation of clindamycin he was also started on probiotic therapy. Following day MRI of the brain was obtained with and without contrast and did document 3 subacute small lacunar infarcts on the left in the region of the basal ganglia. These were felt to be likely responsible for his new and increased right leg weakness. MRI of the lumbar spine was performed and showed evidence of degenerative changes as well as previous surgery but no acute findings or new findings. He was seen by physical therapy daily during hospital stay. I did discuss with the patient and his options for further evaluation including referral to a tertiary care center as well as repeat echocardiogram and MRA. They did not want to proceed with further aggressive evaluation or interventions. He was continued on his oral anticoagulation with warfarin. [facility] as well as occupational therapy. Activity will be as tolerated and he will resume his usual diet. Follow-up with primary care will be as needed [facility]. - Patient Instructions Diet: Heart Healthy Diet Activity: As Tolerated Other/Special Instructions: Daily physical therapy and occupational therapy [facility] the [facility]. - Discharge Plan Prescriptions/Med Rec: Clindamycin HCl [Cleocin] 300 mg PO Q8H #42 cap Lactobacillus Rhamnosus GG [Culturelle] 2 cap PO BID #120 cap Melatonin 10 mg PO BEDTIME #30 capsule Home Medications: Home Meds Multivitamins/Minerals [Vitamins and Minerals] 1 tab PO DAILY tablet 04/02/15 [ Rx] Furosemide [Lasix] 40 mg PO DAILY 05/30/15 [History] Potassium Chloride [Klor-Con M20] 20 meq PO BID 05/30/15 [History] Cholecalciferol (Vitamin D3) [Vitamin D3] 1,000 units PO DAILY 07/17/15 [History ] Acetaminophen [Tylenol] 650 mg PO BID PRN 07/25/15 [History] Ascorbic Acid [Vitamin C] 500 mg PO DAILY 07/25/15 [History] [place]-3 Fatty Acids [Fish Oil] 1,000 mg PO DAILY 07/25/15 [History] Vitamin E 400 units PO DAILY 07/25/15 [History] Ranitidine [Zantac] 150 mg PO BID 09/15/15 [History] Metoprolol Succinate [Toprol XL] 50 mg PO DAILY 03/25/16 [History] carBAMazepine [Epitol] 400 mg PO BEDTIME 04/26/16 [History] Tamsulosin [Flomax] 0.4 mg PO DAILY 07/31/16 [History] carBAMazepine [Epitol] 200 mg PO BID 07/31/16 [History] Lovastatin 20 mg PO BEDTIME 09/15/17 [History] Fluticasone/Vilanterol [Breo Ellipta 100-25 MCG Inhalation Kit] 1 each INH DAILY 12/16/17 [History] Polyethylene Glycol 3350 [MiraLAX] 17 gm PO DAILY 12/23/17 [History] Albuterol [IJD: Albuterol] 2.5 mg NEB Q4H PRN #40 nebule 12/24/17 [Rx] Citalopram Hydrobromide [Celexa] 40 mg PO DAILY #30 tablet 12/24/17 [Rx] Clindamycin HCl [Cleocin] 300 mg PO Q8H #42 cap 01/05/18 [Rx] Lactobacillus Rhamnosus GG [Culturelle] 2 cap PO BID #120 cap 01/05/18 [Rx] Melatonin 10 mg PO BEDTIME #30 capsule 01/05/18 [Rx] Warfarin [Coumadin] 10 mg PO DAILY@1300 tablet 01/05/18 [Rx] Referrals: Ancelmo Davidson MD [Primary Care Provider] - - Patient Data Vitals - Most Recent: Last Vital Signs Temp 97.3 F 01/05/18 07:39 Pulse 64 01/05/18 09:01 Resp 16 01/05/18 07:39 BP 120/61 01/05/18 09:01 Pulse Ox 93 L 01/05/18 07:39 Weight - Most Recent: 218 lb I&O - Last 24 hours: Intake & Output 01/04/18 01/05/18 01/05/18 22:59 06:59 14:59 Intake Total 500 620 Balance 500 620 Lab Results - Last 24 hrs: Laboratory Results - last 24 hr 01/05/18 Range/Units 05:00 PT 28.0 H (9.5-12.0) sec INR 2.52 H (0.80-1.20) Med Orders - Current: Current Medications Acetaminophen (Tylenol) 650 mg PO Q4H PRN PRN Reason: Pain (Mild 1-3)/fever Last Admin: 01/03/18 13:39 Dose: 650 mg Albuterol (Proventil Neb Soln) 2.5 mg NEB Q4H PRN PRN Reason: Shortness Of Breath/wheezing Last Admin: 01/02/18 21:02 Dose: 2.5 mg Carbamazepine (Tegretol Tab) 400 mg PO BEDTIME [facility] Last Admin: 01/04/18 20:12 Dose: 400 mg Carbamazepine (Tegretol Tab) 200 mg PO BID@0800,1500 [facility] Last Admin: 01/05/18 09:00 Dose: 200 mg Citalopram Hydrobromide (Celexa) 40 mg PO DAILY [facility] Last Admin: 01/05/18 09:00 Dose: 40 mg Clindamycin HCl (Cleocin) 300 mg PO Q8H [facility] Last Admin: 01/05/18 05:38 Dose: 300 mg Furosemide (Lasix) 40 mg PO DAILY [facility] Last Admin: 01/05/18 09:01 Dose: 40 mg Lactobacillus Rhamnosus (Culturelle) 2 cap PO BID [facility] Last Admin: 01/05/18 09:01 Dose: 2 cap Lovastatin (Mevacor) 20 mg PO BEDTIME [facility] Last Admin: 01/04/18 20:11 Dose: 20 mg Magnesium Hydroxide (Milk Of Magnesia) 30 ml PO Q12H PRN PRN Reason: Constipation Melatonin (Melatonin) 9 mg PO BEDTIME [facility] Last Admin: 01/04/18 20:11 Dose: 9 mg Metoprolol Succinate (Toprol Xl) 50 mg PO DAILY [facility] Last Admin: 01/05/18 09:01 Dose: 50 mg Mometasone Furoate/Formoterol Fumar (Dulera 100-5 Mcg) 1 puff IH BIDRT [facility] Last Admin: 01/05/18 07:24 Dose: 1 puff Ondansetron HCl (Zofran) 4 mg IV Q4H PRN PRN Reason: Nausea/Vomiting Oxycodone HCl (Oxycodone) 5 mg PO Q4H PRN PRN Reason: Pain (moderate 4-6) Polyethylene Glycol (Miralax) 17 gm PO DAILY [facility] Last Admin: 01/05/18 09:02 Dose: 17 gm Polyethylene Glycol (Miralax) 17 gm PO DAILY PRN PRN Reason: Constipation Potassium Chloride (Klor-Con M20) 20 meq PO BID [facility] Last Admin: 01/05/18 09:01 Dose: 20 meq Ranitidine HCl (Zantac) 150 mg PO BID [facility] Last Admin: 01/05/18 09:02 Dose: 150 mg Senna/Docusate Sodium (Senna Plus) 1 tab PO BID PRN PRN Reason: Constipation Sodium Chloride (Saline Flush) 10 ml FLUSH ASDIRECTED PRN PRN Reason: Keep Vein Open Tamsulosin HCl (Flomax) 0.4 mg PO DAILY [facility] Last Admin: 01/05/18 09:01 Dose: 0.4 mg Warfarin Sodium (Coumadin) 10 mg PO DAILY@1300 [facility] Last Admin: 01/04/18 12:21 Dose: 10 mg Discontinued Medications Carbamazepine (Tegretol Tab) 200 mg PO BID [facility] Last Admin: 01/02/18 21:06 Dose: 200 mg Gadoteridol (Prohance) 15 ml IV .A DIRECTED [facility] Stop: 01/03/18 23:00 Last Admin: 01/03/18 12:20 Dose: 15 ml Haloperidol Lactate (Haldol) 1 mg IVPUSH ONETIME ONE Stop: 01/03/18 09:01 Last Admin: 01/03/18 10:49 Dose: 1 mg *Q Meaningful Use (DIS) - VTE *Q VTE Criteria *Q: VTE Pharmacological Contraindications *Q: High INR Value - Stroke *Q Stroke Criteria *Q: - AMI *Q AMI Criteria *Q:
== END 2018-01-05 11:30 | DRG 66 ==
LOC: JP.ED 14:19 → JP.MS 16:40 → JP.ICU 16:40
PROVIDERS: ADMIT Hospitalist; ATTEND Hospitalist
DX: I63.9 Cerebral infarction, unspecified (principal); G83.11 Monoplegia of lower limb affecting right dominant side; R53.1 Weakness; I10 Essential (primary) hypertension; R20.0 Anesthesia of skin; F03.90 Unspecified dementia, unspecified severity, without behavioral disturbance, psychotic disturbance, mood disturbance, and anxiety; Z87.891 Personal history of nicotine dependence; G30.9 Alzheimer's disease, unspecified; F02.80 Dementia in other diseases classified elsewhere, unspecified severity, without behavioral disturbance, psychotic disturbance, mood disturbance, and anxiety; J44.9 Chronic obstructive pulmonary disease, unspecified; I25.10 Atherosclerotic heart disease of native coronary artery without angina pectoris; Z86.718 Personal history of other venous thrombosis and embolism; M21.379 Foot drop, unspecified foot; Z79.01 Long term (current) use of anticoagulants; J32.2 Chronic ethmoidal sinusitis; F32.9 Major depressive disorder, single episode, unspecified; M54.9 Dorsalgia, unspecified; G89.29 Other chronic pain; Z87.01 Personal history of pneumonia (recurrent); I25.2 Old myocardial infarction; Z95.1 Presence of aortocoronary bypass graft; H54.7 Unspecified visual loss; H91.90 Unspecified hearing loss, unspecified ear; Z88.8 Allergy status to other drugs, medicaments and biological substances; Z96.659 Presence of unspecified artificial knee joint; Z79.899 Other long term (current) drug therapy; Z51.81 Encounter for therapeutic drug level monitoring; M48.8X6 Other specified spondylopathies, lumbar region; M51.36 Other intervertebral disc degeneration, lumbar region
CPT/HCPCS: 36415; 70450; 70553; 70553-26; 72148; 72148-26; 80048; 80053; 81001; 83735; 84484; 85025; 85027; 85610; 94640; 94640-76; 97110-GP; 97112-GP; 97162-GP; 97530-GP; 97535-GP; 99284; 99285-25; A9270-GY; A9576; J1630